=== PATIENT | male | born 1945 | race Caucasian/White ===

== ENCOUNTER 2017-02-01 11:12 | Inpatient (IN) | payer MEDICARE ==
[2017-02-01 12:40] LABS: Hematocrit 38 % (42-52); Hemoglobin 12.8 g/dl (14.0-18.0); Mean Corpuscular HGB Conc 34 g/dl (31-36); Mean Corpuscular Hemoglobin 30 pg (27-31); Mean Corpuscular Volume 90 fL (80-94); Mean Platelet Volume 8 um3 (7.4-10.4); Red Blood Count 4.23 10^6/ul (4.0-5.4); Red Cell Distribution Width 13 % (10.5-15); White Blood Count 13.8 10^3/ul (3.5-10.8)
[2017-02-01 12:44] LABS: Add Diff/Slide Review? Slide Review Added; Comments Flag Yes
[2017-02-01 12:59] LABS: Albumin 3.1 g/dL (3.2-5.2); BUN/Creatinine Ratio 20.3 (8-20); C Reactive Protein 203.75 mg/L (< 5.00); Calcium 9.1 mg/dL (8.6-10.3); EGFR Non-African American 45.1 (>60); Globulin 3.8 g/dL (2-4); Potassium 4.1 mmol/L (3.5-5.0); Total Bilirubin 0.6 mg/dL (0.2-1.0); Total Protein 6.9 g/dL (6.4-8.9)
[2017-02-01 13:04] LABS: Troponin I 0.04 ng/mL (<0.04)
[2017-02-01 13:05] LABS: Eosinophils % 1 % (0-6); Immature Granulocytes 1 % (0-9); Neutrophil % 84 % (38-83); RBC Morphology Normal (Normal); Reactive Lymph % 2 % (0-6)
--- NOTE | 2017-02-01 13:24 | RAD ---
INDICATION: Weakness. Shortness of breath on exertion. Recent flu treatment. History of cardiac disease. History of melanoma. COMPARISON: May 13, 2010 TECHNIQUE: Dual energy PA and routine lateral views of the chest were obtained. REPORT: Chronic 0.9 cm calcified granuloma at the periphery of the LEFT midlung zone. Probable small calcified RIGHT hilar lymph node without change. No suspicious focal pulmonary lesions, alveolar consolidation, pleural effusion, pneumothorax. The heart, pulmonary vasculature, and mediastinal contours are unremarkable. Polyarticular degenerative arthropathy. Negative for suspicious focal osseous lesions. IMPRESSION: No evidence for acute intrathoracic disease.
[2017-02-01 15:42] LABS: Urine Bilirubin Negative (Negative); Urine Glucose Negative (Negative); Urine Nitrite Negative (Negative)
[2017-02-01] MEDS ORDERED: Acetaminophen TAB* 325 MG PO PRN (16:01)
[2017-02-01] MEDS ORDERED: Ondansetron INJ* 2 MG/ML VIAL IV PRN (16:01)
[2017-02-01] MEDS ORDERED: NS 0.9% 1000 ML* 1,000 ML IV SCH ×2 (16:15→23:29)
[2017-02-01 17:18] LABS: Troponin I 0.04 ng/mL (<0.04)
--- NOTE | 2017-02-01 18:04 | ED ---
Lisa Esposito Claudia, scribed for Ovi Hernandez MD on 02/01/17 at 1231 . Complex/Multi-Sys Presentation - HPI Summary HPI Summary: 71 year old male presents to [facility] ED with chief complaints of flu-like Sx. Pt notes myalgia, arthalgia, fatigue, general weakness, SOB upon exertion, cough. Pt states that he had gradual onset of Sx about 1 weeks ago that have persisted but somewhat resolved. Pt notes that he is no longer having intermittent fevers but he is having some general weakness. He notes that OTC Rx have been somewhat alleviating his Sx. Pt denies any aggravating factors. - History Of Current Complaint Chief Complaint: EDFluSymptoms Time Seen by Provider: 02/01/17 12:11 Hx Obtained From: Patient Onset/Duration: Gradual Onset, Lasting Days, Still Present Associated Signs And Symptoms: Positive: Weakness, Cough, Fever. Negative: Chest Pain - Allergies/Home Medications Allergies/Adverse Reactions: Allergies Allergy/AdvReac Type Severity Reaction Status Date / Time No Known Allergies Allergy Verified 02/01/17 12:28 Home Medications: Home Medications Flunisolide NASAL (NF) [Nasalide NASAL (NF)] 2 spray BOTH NARES BEDTIME [History Confirmed 02/01/17] Metoprolol Succinate XL TAB* [Toprol XL TAB*] 50 mg PO DAILY 02/01/17 [History Confirmed 02/01/17] Omeprazole CAP* [Prilosec CAP* 20 MG] 20 mg PO BID 02/01/17 [History Confirmed 02/01/17] Sertraline* [Zoloft*] 50 mg PO DAILY 02/01/17 [History Confirmed 02/01/17] Simvastatin TAB(NF) [Zocor(NF)] 20 mg PO DAILY 02/01/17 [History Confirmed 02/01] amLODIPine TAB* [Norvasc 5 mg TAB*] 5 mg PO DAILY 02/01/17 [History Confirmed ] buPROPion SR TAB* [Wellbutrin SR TAB*] 200 mg PO BID 02/01/17 [History Confirmed 02/01/17] PMH/Surg Hx/FS Hx/Imm Hx Previously Healthy: Yes Endocrine/Hematology History: Denies: Hx Diabetes Cardiovascular History: Denies: Hx Myocardial Infarction Infectious Disease History: No Infectious Disease History: Denies: Traveled Outside the [place] in Last 30 Days - Social History Alcohol Use: Rare Substance Use Type: Reports: None Smoking Status (MU): Former Smoker Review of Systems Positive: Fever, Fatigue. Negative: Chills Eyes: Negative ENT: Negative Cardiovascular: Negative Negative: Chest Pain Positive: Shortness Of Breath - upon exertion , Cough Gastrointestinal: Negative Genitourinary: Negative Negative: burning, dysuria Positive: Arthralgia, Myalgia Skin: Negative Positive: Weakness - general Psychological: Normal All Other Systems Reviewed And Are Negative: Yes Physical Exam - Summary Physical Exam Summary: VITAL SIGNS: Reviewed. GENERAL: Patient is a well-developed and nourished female who is lying comfortable in the stretcher. Patient is not in any acute respiratory distress. HEAD AND FACE: No signs of trauma. No ecchymosis, hematomas or skull depressions. No sinus tenderness. EYES: PERRLA, EOMI x 2, No injected conjunctiva, no nystagmus. EARS: Hearing grossly intact. Ear canals and tympanic membranes are within normal limits. MOUTH: Oropharynx within normal limits. NECK: Supple, trachea is midline, no adenopathy, no JVD, no carotid bruit, no c- spine tenderness, neck with full ROM. CHEST: Symmetric, no tenderness at palpation LUNGS: Clear to auscultation bilaterally. No wheezing or crackles. CVS: Regular rate and rhythm, S1 and S2 present, no murmurs or gallops appreciated. ABDOMEN: Soft, non-tender. No signs of distention. No rebound no guarding, and no masses palpated. Bowel sounds are normal. EXTREMITIES: FROM in all major joints, no edema, no cyanosis or clubbing. NEURO: Alert and oriented x 3. No acute neurological deficits. Speech is normal and follows commands. SKIN: Dry and warm Triage Information Reviewed: Yes Vital Signs On Initial Exam: Initial Vitals Temp Pulse Resp BP Pulse Ox 98.0 F 96 20 118/66 97 02/01/17 11:16 02/01/17 11:16 02/01/17 11:16 02/01/17 11:16 02/01/17 11:16 Vital Signs Reviewed: Yes - [place] Coma Scale Coma Scale Total: 15 Diagnostics - Vital Signs Vital Signs Temp Pulse Resp BP Pulse Ox 07/12/17 12:27 94 02/01/17 12:00 79 119/75 95 02/01/17 11:31 73 96 02/01/17 11:30 143/77 02/01/17 11:16 98.0 F 96 20 118/66 97 - Laboratory Lab Results: Lab Results 02/01/17 02/01/17 02/01/17 Range/Units 12:20 12:20 12:20 WBC 13.8 H (3.5-10.8) 10^3/ul RBC 4.23 (4.0-5.4) 10^6/ul Hgb 12.8 L (14.0-18.0) g/dl Hct 38 L (42-52) % MCV 90 (80-94) fL MCH 30 (27-31) pg MCHC 34 (31-36) g/dl RDW 13 (10.5-15) % Plt Count 293 (150-450) 10^3/ul MPV 8 (7.4-10.4) um3 Immature Gran % (Auto) 1 (0-9) % Neut % (Auto) 86.7 H (38-83) % Lymph % (Auto) 7.8 L (25-47) % [place] % (Auto) 3.3 (1-9) % Eos % (Auto) 1.2 (0-6) % Baso % (Auto) 1.0 (0-2) % Absolute Neuts (auto) 12.0 H (1.5-7.7) 10^3/ul Absolute Lymphs (auto) 1.1 (1.0-4.8) 10^3/ul Absolute Monos (auto) 0.4 (0-0.8) 10^3/ul Absolute Eos (auto) 0.2 (0-0.6) 10^3/ul Absolute Basos (auto) 0.1 (0-0.2) 10^3/ul Absolute Nucleated RBC 0 10^3/ul Neutrophils % 84 H (38-83) % Band Neutrophils % 1 (0-8) % Lymphocytes % 7 L (25-47) % Reactive Lymphs % 2 (0-6) % Monocytes % 5 (0-13) % Eosinophils % 1 (0-6) % Nucleated RBC % 0 Normal RBC Morphology Normal (Normal) INR (Anticoag Therapy) 1.18 H (0.89-1.11) APTT 28.5 (26.0-36.3) seconds Sodium 130 L (133-145) mmol/L Potassium 4.1 (3.5-5.0) mmol/L Chloride 100 L (101-111) mmol/L Carbon Dioxide 20 L (22-32) mmol/L Anion Gap 10 (2-11) mmol/L BUN 31 H (6-24) mg/dL Creatinine 1.53 H (0.67-1.17) mg/dL Est GFR ( Amer) 58.0 (>60) Est GFR (Non-Af Amer) 45.1 (>60) BUN/Creatinine Ratio 20.3 H (8-20) Glucose 92 (70-100) mg/dL Lactic Acid (0.5-2.0) mmol/L Calcium 9.1 (8.6-10.3) mg/dL Total Bilirubin 0.60 (0.2-1.0) mg/dL AST 38 (13-39) U/L ALT 46 (7-52) U/L Alkaline Phosphatase 103 (34-104) U/L Total Creatine Kinase 35 (10-223) U/L Troponin I 0.04 H* (<0.04) ng/mL C-Reactive Protein 203.75 H (< 5.00) mg/L B-Natriuretic Peptide ( - 100) pg/mL Total Protein 6.9 (6.4-8.9) g/dL Albumin 3.1 L (3.2-5.2) g/dL Globulin 3.8 (2-4) g/dL Albumin/Globulin Ratio 0.8 L (1-3) Urine Color Urine Appearance Urine pH (5-9) Ur Specific [place] (1.010-1.030) Urine Protein (Negative) Urine Ketones (Negative) Urine Blood (Negative) Urine Nitrate (Negative) Urine Bilirubin (Negative) Urine Urobilinogen (Negative) Ur Leukocyte Esterase (Negative) U Random Total Protein mg/dL Urine Glucose (Negative) Urine Ascorbic Acid (Negative) Influenza A (Rapid) (Negative) Influenza B (Rapid) (Negative) 02/01/17 02/01/17 02/01/17 Range/Units 12:20 12:20 12:30 WBC (3.5-10.8) 10^3/ul RBC (4.0-5.4) 10^6/ul Hgb (14.0-18.0) g/dl Hct (42-52) % MCV (80-94) fL MCH (27-31) pg MCHC (31-36) g/dl RDW (10.5-15) % Plt Count (150-450) 10^3/ul MPV (7.4-10.4) um3 Immature Gran % (Auto) (0-9) % Neut % (Auto) (38-83) % Lymph % (Auto) (25-47) % [place] % (Auto) (1-9) % Eos % (Auto) (0-6) % Baso % (Auto) (0-2) % Absolute Neuts (auto) (1.5-7.7) 10^3/ul Absolute Lymphs (auto) (1.0-4.8) 10^3/ul Absolute Monos (auto) (0-0.8) 10^3/ul Absolute Eos (auto) (0-0.6) 10^3/ul Absolute Basos (auto) (0-0.2) 10^3/ul Absolute Nucleated RBC 10^3/ul Neutrophils % (38-83) % Band Neutrophils % (0-8) % Lymphocytes % (25-47) % Reactive Lymphs % (0-6) % Monocytes % (0-13) % Eosinophils % (0-6) % Nucleated RBC % Normal RBC Morphology (Normal) INR (Anticoag Therapy) (0.89-1.11) APTT (26.0-36.3) seconds Sodium (133-145) mmol/L Potassium (3.5-5.0) mmol/L Chloride (101-111) mmol/L Carbon Dioxide (22-32) mmol/L Anion Gap (2-11) mmol/L BUN (6-24) mg/dL Creatinine (0.67-1.17) mg/dL Est GFR ( Amer) (>60) Est GFR (Non-Af Amer) (>60) BUN/Creatinine Ratio (8-20) Glucose (70-100) mg/dL Lactic Acid 1.0 (0.5-2.0) mmol/L Calcium (8.6-10.3) mg/dL Total Bilirubin (0.2-1.0) mg/dL AST (13-39) U/L ALT (7-52) U/L Alkaline Phosphatase (34-104) U/L Total Creatine Kinase (10-223) U/L Troponin I (<0.04) ng/mL C-Reactive Protein (< 5.00) mg/L B-Natriuretic Peptide 129 H ( - 100) pg/mL Total Protein (6.4-8.9) g/dL Albumin (3.2-5.2) g/dL Globulin (2-4) g/dL Albumin/Globulin Ratio (1-3) Urine Color Urine Appearance Urine pH (5-9) Ur Specific [place] (1.010-1.030) Urine Protein (Negative) Urine Ketones (Negative) Urine Blood (Negative) Urine Nitrate (Negative) Urine Bilirubin (Negative) Urine Urobilinogen (Negative) Ur Leukocyte Esterase (Negative) U Random Total Protein mg/dL Urine Glucose (Negative) Urine Ascorbic Acid (Negative) Influenza A (Rapid) Negative (Negative) Influenza B (Rapid) Negative (Negative) 02/01/17 02/01/17 Range/Units 14:16 15:34 WBC (3.5-10.8) 10^3/ul RBC (4.0-5.4) 10^6/ul Hgb (14.0-18.0) g/dl Hct (42-52) % MCV (80-94) fL MCH (27-31) pg MCHC (31-36) g/dl RDW (10.5-15) % Plt Count (150-450) 10^3/ul MPV (7.4-10.4) um3 Immature Gran % (Auto) (0-9) % Neut % (Auto) (38-83) % Lymph % (Auto) (25-47) % [place] % (Auto) (1-9) % Eos % (Auto) (0-6) % Baso % (Auto) (0-2) % Absolute Neuts (auto) (1.5-7.7) 10^3/ul Absolute Lymphs (auto) (1.0-4.8) 10^3/ul Absolute Monos (auto) (0-0.8) 10^3/ul Absolute Eos (auto) (0-0.6) 10^3/ul Absolute Basos (auto) (0-0.2) 10^3/ul Absolute Nucleated RBC 10^3/ul Neutrophils % (38-83) % Band Neutrophils % (0-8) % Lymphocytes % (25-47) % Reactive Lymphs % (0-6) % Monocytes % (0-13) % Eosinophils % (0-6) % Nucleated RBC % Normal RBC Morphology (Normal) INR (Anticoag Therapy) (0.89-1.11) APTT (26.0-36.3) seconds Sodium (133-145) mmol/L Potassium (3.5-5.0) mmol/L Chloride (101-111) mmol/L Carbon Dioxide (22-32) mmol/L Anion Gap (2-11) mmol/L BUN (6-24) mg/dL Creatinine (0.67-1.17) mg/dL Est GFR ( Amer) (>60) Est GFR (Non-Af Amer) (>60) BUN/Creatinine Ratio (8-20) Glucose (70-100) mg/dL Lactic Acid (0.5-2.0) mmol/L Calcium (8.6-10.3) mg/dL Total Bilirubin (0.2-1.0) mg/dL AST (13-39) U/L ALT (7-52) U/L Alkaline Phosphatase (34-104) U/L Total Creatine Kinase (10-223) U/L Troponin I (<0.04) ng/mL C-Reactive Protein (< 5.00) mg/L B-Natriuretic Peptide ( - 100) pg/mL Total Protein (6.4-8.9) g/dL Albumin (3.2-5.2) g/dL Globulin (2-4) g/dL Albumin/Globulin Ratio (1-3) Urine Color Yellow Urine Appearance Clear Urine pH 5.0 (5-9) Ur Specific [place] 1.009 L (1.010-1.030) Urine Protein Negative (Negative) Urine Ketones Negative (Negative) Urine Blood Negative (Negative) Urine Nitrate Negative (Negative) Urine Bilirubin Negative (Negative) Urine Urobilinogen Negative (Negative) Ur Leukocyte Esterase Negative (Negative) U Random Total Protein 11 mg/dL Urine Glucose Negative (Negative) Urine Ascorbic Acid * H (Negative) Influenza A (Rapid) (Negative) Influenza B (Rapid) (Negative) Result Diagrams: 07/12/17 12:20 02/01/17 12:20 Lab Statement: Any lab studies that have been ordered have been reviewed, and results considered in the medical decision making process. - Radiology CXR Xray Interpretation: No Acute Changes - NO EVIDENCE FOR ACUTE INTRATHORACIC DISEASE Radiology Interpretation Completed By: Radiologist - EKG 12:39 Cardiac Rate: NL EKG Rhythm: Sinus Rhythm - 71 beats/min with PVC unchanged from previous Complex Multi-Symp Course/Dx Course Of Treatment: 71 year old male presents to [facility] ED with chief complaints of flu-like Sx. Pt notes myalgia, arthalgia, fatigue, general weakness, SOB upon exertion, cough. Pt states that he had gradual onset of Sx about 1 weeks ago that have persisted but somewhat resolved. Pt notes that he is no longer having intermittent fevers but he is having some general weakness. He notes that OTC Rx have been somewhat alleviating his Sx. Pt denies any aggravating factors. Assessment/Plan: The results show shows WBC of 12.8 slight anemia, sodium of 130 , BUN Creatinine slightly elevated. Troponin of 0.04, CRP is 203, urine analysis neg for UTI and influenza a and B negative. CXR shows neg for any acute pathology. Because of the increased troponin I discussed the case with Dr. Negrete who will admit the pt to rule out any cardiac pathology. The pt is hemodynamically stable, alert and oriented x3. - Diagnoses Differential Diagnoses/HQI/PQRI: Cardiac Ischemia Provider Diagnoses: Increased trponin r/o ACS, Dyspnea, Weakness - Physician Notifications Discussed Care Of Patient With: Consult with Dr. Negrete whom will admit the pt to [facility]. Time Discussed With Above Provider: 15:18 Instructed by Provider To: Admit As Observation Discharge - Discharge Plan Condition: Stable Disposition: ADMITTED TO [facility] The documentation as recorded by the Lisa miles Claudia accurately reflects the service I personally performed and the decisions made by , Ovi Hernandez MD.
[2017-02-01] MEDS ORDERED: Metoprolol Tartrate IV* 1 MG/ML 5 ML VIAL IV PRN (18:50)
[2017-02-01] MEDS ORDERED: Metoprolol Tartrate IV* 1 MG/ML 5 ML VIAL ONE (18:56)
[2017-02-01 19:22] LABS: TSH (Thyroid Stimulating Horm) 2.87 mcIU/mL (0.34-5.60)
[2017-02-01] MEDS ORDERED: Digoxin IV* 0.5 MG/2 ML AMP (0.25 MG/ML) IV SLOW PU ONE (19:46)
[2017-02-01] MEDS: Omeprazole CAP* 20 MG PO SCH (21:08)
[2017-02-01 21:19] LABS: Erythrocyte Sed Rate 99 mm/Hr (0-40)
[2017-02-01] MEDS ORDERED: cefTRIAXone VIAL(*) 1,000 MG in NS 0.9% 50 ML* 50 ML IVPB SCH (22:00)
[2017-02-01] MEDS ORDERED: Heparin VIAL(*) 5000 UNITS/ML VIAL (FIVE THOUSAND) SUBCUT SCH (22:00)
[2017-02-01] MEDS: Metoprolol Succinate XL TAB* 50 MG PO SCH (22:15)
[2017-02-01] MEDS: buPROPion SR TAB.SR* 200 MG PO SCH (22:16)
[2017-02-01] MEDS: Heparin VIAL(*) 5000 UNITS/ML VIAL (FIVE THOUSAND) IV SCH (22:35)
[2017-02-01] MEDS: Heparin DRIP 25,000 UNITS(*) 25,000 UNITS/500 ML BAG IVPB SCH (22:37)
--- NOTE | 2017-02-01 22:44 | HP ---
CC: Dr. Ly * HISTORY AND PHYSICAL: DATE OF ADMISSION: 02/01/17 PRIMARY CARE PROVIDER: Dr. Ly. ATTENDING PHYSICIAN WHILE IN THE HOSPITAL: Delano Negrtee MD * (report dictated by Wilder Reddy NP) CHIEF COMPLAINT: Weakness. HISTORY OF PRESENT ILLNESS: Mr. Workman is a 71-year-old male patient. He has a history of melanoma, CAD, hypertension, hyperlipidemia, depression, PE in the past and history of NM. He comes in today stating in the last 7 to 10 days he has been feeling ill and he states he has just been progressively getting more and more weak. In the last couple of days he has noticed he has had dyspnea on exertion. He says he took [id number] flu medications over the weekend and it actually made him feel better. He denied having any runny nose, sore throat, cough. No fever that he knows of, but he definitely says he thinks he has had chills. He states his appetite has been down. He states the beginning of the week he did have some left-sided neck pain and ear pain, but no symptoms now. He states he did not have any nausea, vomiting or diarrhea. No abdominal pain, no flank pain. He was concerned because he just generally felt run down, weak and fatigued. He does state that he is outside quite a bit. He works for the [employer] and he does take dogs for walk. In addition, he states he does garden quite a bit. He was concerned, though because he noticed that his activity level had decreased and he was feeling weak. He went to his primary today and they referred him to the ER for evaluation. He denied having any changes in his medications recently. He was evaluated here in the ED. It is noted that he had an elevated white count and CRP was 200. In addition to this, it was also noted that his troponin was mildly elevated. Because of these findings we were asked to evaluate for admission. PAST MEDICAL HISTORY: Significant for: 1. Melanoma. 2. CAD. 3. Hypertension. 4. Hyperlipidemia. 5. Depression. 6. PE. 7. NM. PAST SURGICAL HISTORY: He has had: 1. Multiple right foot surgeries from the melanoma. 2. Carpal tunnel. 3. Cardiac catheterization. HOME MEDICATIONS: According to the list that we were able to obtain include: 1. Wellbutrin 200 mg p.o. b.i.d. 2. Norvasc 5 mg daily. 3. Zocor 20 mg daily. 4. Zoloft 50 mg daily. 5. Omeprazole 20 mg p.o. b.i.d. 6. Metoprolol succinate 50 mg p.o. daily. 7. Nasalide 2 sprays both nares at bedtime. ALLERGIES TO MEDICATIONS: Include no known drug allergies. FAMILY HISTORY: His mother had heart disease, father had history of PE. SOCIAL HISTORY: The patient is a smoker. He smokes a lot of cigarettes a day. He does not drink alcohol. He states he does not have a surrogate decision maker at this point. REVIEW OF SYSTEMS: There is no documented fever, but he did admit to having chills. There is no significant weight change. Denied having any double vision. There was no ear discharge. He denies having any rhinorrhea. No sore throat. No thyroid enlargement. Denies having any chest pain. There was no orthopnea, no nocturnal dyspnea. There was no abdominal pain, no flank pain, no nausea, no vomiting. No dysuria, no frequency. There was no loss of consciousness. No pruritus and no skin ulcerations. Review of 14 systems completed, all others negative. PHYSICAL EXAMINATION GENERAL: At this time, Mr. Workman is a 71-year-old male patient. He is sitting in the ER stretcher. He does not appear to be in any acute distress. VITAL SIGNS: Blood pressure 140/69, pulse 82, respirations 18, O2 sat 95%, temperature 98.0. HEENT: Head is atraumatic. Eyes: EOMs are intact. Sclerae anicteric and not pale. Throat: Oral mucosa appears to be dry. No oropharyngeal erythema. NECK: Supple. LUNGS: Clear to auscultation bilaterally. No wheezes, rales, or rhonchi. HEART: Sounds S1 and S2. Regular rate and rhythm. No murmur, rubs, or gallops. ABDOMEN: Soft, flat, nontender. Bowel sounds are present. No CVA tenderness. EXTREMITIES: Pulses are 2+ throughout. He is moving all 4 extremities with 5/ 5 strength. NEUROLOGIC: The patient is awake. He is alert. He is oriented x3. His tongue is midline. Composite Layup Worker were equal. No gross focal deficits. SKIN: Grossly intact. No rashes were noted. No open areas. DIAGNOSTIC STUDIES/LAB DATA: Revealed WBC of 13.8, RBC of 4.23, hemoglobin of 12.8, hematocrit of 38, platelet count of 293,000. The INR was 1.18. PTT of 28.5. Sodium 130, potassium 4.1, chloride 100, bicarb 22, BUN 31, creatinine 1.53. His baseline creatinine appears to be about 1.4. His glucose was 92, lactate 1.01, calcium 9.1. Total bilirubin 0.6, AST 38, ALT 46, alk phos 103. Troponin 0.04. CRP was 203. Albumin was 3.1. Urine was obtained, it was negative. Serology was negative for flu. He had a chest x-ray which when I reviewed it, I did not appreciate any acute infiltrates or pleural effusion. Radiology read it as no evidence for acute intrathoracic disease. He did have an EKG obtained today, which does show sinus rhythm. He does have PAC's. No ST elevations or T-wave inversions were noted. Last EKG was 10 years ago in our system and with the exception of the PAC, it actually appears to be similar. Old medical records were reviewed. ASSESSMENT AND PLAN: Mr. Workman is a 71-year-old male patient coming into the ER today with complaints of generalized fatigue, weakness and not feeling well. On evaluation here today, it was noted he had an elevated white count. In addition to this, his CRP was 200 and a mildly elevated troponin. He will be admitted under observation status for: 1. Weakness, etiology is unclear. He may have an underlying infection. I think it is appropriate to check him for Lyme serology and if it is positive, then obviously I will put him on Rocephin. I am holding on antibiotics now, we are pizarro culturing him. I do not have an obvious source, although the CRP is concerning and the white count being up is concerning for possible infection, but it could still be viral. I would like to pizarro culture him. If he spikes any fevers, then I will probably put him on broad-spectrum antibiotics. We will monitor. We will get blood cultures and we will hydrate him and we will follow for the time being and it certainly contributing to his weakness. 2. Indeterminate troponins. Again, he is not having any chest pain. EKG is stable. My plan is to trend these and check an echo to see if there has been any focal changes on the echo. 3. Melanoma. He can follow with his primary. 4. Coronary artery disease. He is on a beta-ena. We will continue with this. He is also on Zocor. 5. Hypertension, continue his beta-ena. 6. Hyperlipidemia. Continue Zocor. 7. Depression. Continue supportive care. 8. History of pulmonary embolus. He will be placed on heparin subcu for his prophylaxis. 9. History of myocardial infarction. Again, continue his beta-ena and statin therapy. 10. Acute renal failure. Again, at this point, his renal function is mildly elevated from his baseline. It is probably dehydration. We will hydrate him. Repeat his labs tomorrow and I will check a FeNa. 11. Fluids, electrolytes, nutrition. He can have a heart-healthy diet. 12. DVT prophylaxis, on heparin subcu. TIME SPENT: On the admission was 60 minutes, greater than half the time was spent [id number] with the patient obtaining my history and physical, other half of the time was spent going over the plan of care with the patient and implementing the plan of care. I did discuss the plan of care with my attending , Dr. Negrete; he is in agreement. WILDER REDDY NP [id number]/[facility] #: [id number] WOLF
[2017-02-01] MEDS ORDERED: Digoxin IV* 0.5 MG/2 ML AMP (0.25 MG/ML) ONE (23:00)
[2017-02-01] MEDS: Hydrocortisone INJ* 100 MG VIAL IV SCH (23:55)
[2017-02-02 00:27] LABS: BUN/Creatinine Ratio 20.8 (8-20); Calcium 8.8 mg/dL (8.6-10.3); EGFR African American 59.8 (>60); EGFR Non-African American 46.5 (>60); Potassium 4.1 mmol/L (3.5-5.0)
[2017-02-02 00:36] LABS: Troponin I 0.05 ng/mL (<0.04)
[2017-02-02] MEDS: Amiodarone 360 MG IVPREMIX* 360 MG/200 ML BAG IV SCH ×7 (00:48→23:45)
--- NOTE | 2017-02-02 01:12 | HP ---
HISTORY AND PHYSICAL: ADDENDUM UPDATE: DATE OF ADMISSION: 02/01/17 Please note that since the patient's admission by Wilder Reddy today in the afternoon, patient developed atrial fibrillation with rapid ventricular response. He was treated with one dose of IV Lopressor at 5 mg. He also got his regular dose of Toprol XL at 2100 hours. Due to elevated CRP and ESR, Wilder Reddy NP ordered a dose of ceftriaxone to be administered. Also due to the continuation of atrial fibrillation, patient was started on heparin drip. Just about the time when his ceftriaxone dose was fully infused, then patient received a little bit over 5000 units of heparin drip bolus. He complained of having visual changes. I was called urgently to the patient's bedside with question by the registered nurse if the patient may be having a stroke. The patient was otherwise neurologically intact, but he was very diaphoretic, flushed and his blood pressures were in the 50s. His heart rate was in the 160s and EKG showed progression of his ST depressions in lateral leads. At this point, patient was treated with intravenous hydration. Patient received one dose of intravenous digoxin 0.25 mg 2 hours prior and he was administered 0.5 mg after he was seen right now. I spoke with Dr. Magallanes, who stated that this patient does in fact continue to be in unstable atrial fibrillation, and synchronized cardioversion will be indicated. At this point, the patient was just transferred to the intensive care unit. He is feeling better. After a bolus of intravenous hydration and a dose of digoxin, his pressure is in the low one-teens. His visual changes resolved. He also started complaining at some point of substernal pressure that is also now slowly resolving. PHYSICAL EXAMINATION GENERAL: The patient is a pleasant 71-year-old male who is mildly tachypneic and appears anxious, otherwise in no acute distress. The patient is alert and oriented x3. VITAL SIGNS: At this point shows heart rate of 120 and irregularly irregular, respiratory rate 20, oxygen saturation 99% on 5 L of oxygen nasal cannula and blood pressure of 114 systolically. HEENT: Head atraumatic, normocephalic. Eyes, pupils are equal, round, and reactive to light and accommodation. Oropharynx clear. Mucosa moist. NECK: Supple. No JVD. No bruits bilaterally. RESPIRATORY: Crackles at bilateral bases, otherwise clear. CARDIOVASCULAR: Irregularly irregular rhythm. No murmur. ABDOMEN: Soft and nontender. Bowel sounds are present in all 4 quadrants. EXTREMITIES: There is no edema, pulses are +2 bilaterally. No clubbing or cyanosis. SKIN: Diaphoretic and flushed. No lesions appreciated. NEUROLOGIC: Speech clear. Cranial nerves XII through XII grossly intact. Motor strength 5/5 bilaterally. LABORATORY DATA: The patient's EKG as mentioned above showed ST depressions of at least 2 mm in leads V3 to V6, which is progression from prior. Portable chest x-ray is pending at the time of dictation. ASSESSMENT AND PLAN: 1. Hypotension in the face of unstable atrial fibrillation. At this point, patient is at least temporarily stabilized after a dose of digoxin and intravenous fluids. His heart rate is lower to 120s and his pressures are over 100. At this point, the differential includes either simply just a cause of hypotension due to unstable atrial fibrillation versus an allergic reaction that could be either due to ceftriaxone or heparin. The patient also could have had an episode of pulmonary embolism. He did complain of some shortness of breath and he had history of pulmonary embolism and used to be on "warfarin for a very long time." He also has history of melanoma. At this point, weighing pros and cons of anticoagulation and possibility of the patient having an allergic reaction to heparin, I think it is pretty unlikely that the patient had hypotensive reaction as allergy to heparin. At this point, I will continue heparin drip for his atrial fibrillation as well as for possibility of pulmonary embolism. Unfortunately, at this point the patient cannot have a CT angiogram due to his chronic kidney insufficiency with creatinine of 1.5. Once again, he is empirically going to be continued to be treated with heparin drip. 2. In regards to possibility of infection, he received a dose of ceftriaxone. His blood cultures are pending. Apart from elevated inflammatory markers, there are no other signs of infection. At this point, the ceftriaxone is going to be held when possibility of allergic reaction is entertained. Also due to hypotension and question of allergic reaction, patient is going to be placed on stress dose steroids. 3. In regards to patient's ischemic changes on EKG, at least a progression and rate related ischemia in the lateral leads. At this point, patient is going to be heparinized. I cannot place him on nitroglycerin due to his low systolic pressures. I will monitor his troponins and he is in currently in the intensive care unit on continuing telemetry. 4. At this point, basic metabolic panel, lactic acid, portable chest x-ray are still pending. 5. Lastly, the patient's elevated ESR of 99 with history of generalized weakness places an autoimmune disease in the differential also. For that, the patient is going to be also continued on steroids for the time being. I will also order an YANIRA TIME SPENT: Overall, approximately 30 minutes of critical care time was spent in taking care of this patient. [id number]/[facility] #: [id number] WOLF
[2017-02-02 06:26] LABS: Add Diff/Slide Review? Slide Review Added; Comments Flag Yes; Hematocrit 33 % (42-52); Hemoglobin 10.9 g/dl (14.0-18.0); Mean Corpuscular HGB Conc 33 g/dl (31-36); Mean Corpuscular Hemoglobin 30 pg (27-31); Mean Corpuscular Volume 91 fL (80-94); Mean Platelet Volume 8 um3 (7.4-10.4); Red Blood Count 3.62 10^6/ul (4.0-5.4); Red Cell Distribution Width 13 % (10.5-15)
[2017-02-02 06:42] LABS: BUN/Creatinine Ratio 21.5 (8-20); Calcium 7.9 mg/dL (8.6-10.3); EGFR Non-African American 54.4 (>60); Potassium 4.3 mmol/L (3.5-5.0)
[2017-02-02 06:52] LABS: Troponin I 0.13 ng/mL (<0.04)
--- NOTE | 2017-02-02 07:59 | RAD ---
HISTORY: Shortness of breath COMPARISONS: February 01, 2017 at 1:07 PM VIEWS:1: Single frontal portable view of the chest at 11:40 PM FINDINGS: LINES AND TUBES: None. CARDIOMEDIASTINAL SILHOUETTE: The cardiomediastinal silhouette is normal for portable technique. PLEURA: The costophrenic angles are sharp. No pleural abnormalities are noted. LUNG PARENCHYMA: Again noted is a calcified granuloma of the left midlung ABDOMEN: The upper abdomen is clear. There is no subphrenic gas. BONES AND SOFT TISSUES: No bone or soft tissue abnormalities are noted. IMPRESSION: NO ACTIVE CARDIOPULMONARY DISEASE.
[2017-02-02] MEDS ORDERED: amLODIPine TAB* 5 MG PO SCH (09:00)
[2017-02-02] MEDS: buPROPion SR TAB.SR* 200 MG PO SCH ×2 (09:11→21:13)
[2017-02-02] MEDS: Omeprazole CAP* 20 MG PO SCH ×2 (09:11→21:13)
[2017-02-02] MEDS: Hydrocortisone INJ* 100 MG VIAL IV SCH ×2 (09:11→16:41)
[2017-02-02] MEDS: Atorvastatin* 10 MG TAB PO SCH (09:11)
[2017-02-02] MEDS: Sertraline* 50 MG TAB PO SCH (09:12)
--- NOTE | 2017-02-02 10:04 | ECHO ---
Patient: JANNET MIRANDA [facility] Rec#: [id number] : 1945 Date: 02/02/2017 Age: 71y Height: 175.3 cm / 69.0 in Weight: 65.8 kg / 145.0 lbs Sex: M BSA: 1.8 Room#: ICU 3 Admit Date#: 02/01/2017 Type: Inpatient Referring: Wilder Reddy NP Reading: Radha Raymond MD Banking Paralegal: Giuliana Prieto RN RDCS CC: Willy Ly MD Transthoracic Echocardiogram Indication: Elevated troponin, A. fib with hypotension BP: 100/46 HR: 70 Rhythm: NSR Findings History: CAD, MA, HTN, HLD, PE, melanoma, smoker, episode of A. fib and hypotension last evening Technical Comments: The study quality is fair. The study is technically limited due to the patient's smoking history. Completed at 0940. Left Ventricle: The left ventricular chamber size is normal. Mild concentric left ventricular hypertrophy is observed. There is a focal wall motion abnormality present.Inferior-posterior wall hypokinesis-mild Left ventricular systolic function is at the lower limits of normal. The estimated ejection fraction is 50-55%. There is no consistent Doppler evidence of clinically significant diastolic dysfunction. The patient was unable to perform a Valsalva maneuver. Left Atrium: The left atrium is mildly dilated. Right Ventricle: The right ventricular chamber size and systolic function are within normal limits. Right Atrium: The right atrium is mildly dilated. Aortic Valve: The aortic valve leaflets are moderately thickened. Systolic excursion of the aortic valve cusps is reduced. There is mild to moderate aortic regurgitation. There is mild to moderate aortic stenosis. The mean gradient of the aortic valve is 16 mmHg. The peak instantaneous gradient of the aortic valve is 27 mmHg. The aortic valve area, by peak velocities, is calculated at 1.4 cm2. The aortic valve area, by VTI's, is calculated at 1.6 cm2. The dimensionless index is 0.46-0.51. Mitral Valve: The mitral valve leaflets are mildly thickened. There is mild to moderate mitral regurgitation. There is no evidence of mitral stenosis. Tricuspid Valve: The tricuspid valve leaflets are normal. There is mild tricuspid regurgitation. There is evidence of mild pulmonary hypertension. There is no tricuspid stenosis. Pulmonic Valve: The pulmonic valve appears normal. There is mild pulmonic regurgitation. There is no pulmonic stenosis. Pericardium: There is no significant pericardial effusion. A pericardial fat pad is visualized. Aorta: There is no dilatation of the ascending aorta. The aortic arch is not well visualized. There is no dilation of the aortic root. Pulmonary Artery: The main pulmonary artery is not well visualized. Venous: The inferior vena cava is not visualized. Summary: There was not any prior study for comparison. Conclusions The left ventricular chamber size is normal. Mild concentric left ventricular hypertrophy is observed. There is a focal wall motion abnormality present.Inferior-posterior wall hypokinesis-mild The estimated ejection fraction is 50-55%. There is no consistent Doppler evidence of clinically significant diastolic dysfunction. The left atrium is mildly dilated. The right atrium is mildly dilated. There is mild to moderate aortic regurgitation. There is mild to moderate aortic stenosis. The aortic valve area, by peak velocities, is calculated at 1.4 cm2. There is mild to moderate mitral regurgitation. There is mild tricuspid regurgitation. There is evidence of mild pulmonary hypertension. There is mild pulmonic regurgitation. Measurements Name Value Normal Range RVDdMajor (2D) 3.2 cm (2.2 - 4.4) RAd ISD 4CH 5.4 cm (3.4 - 4.9) RA (A4C)W 4.2 cm (2.9 - 4.6) IVSd (2D) 1.2 cm (0.6 - 1) LVPWd (2D) 1.2 cm (0.6 - 1) LVIDd (2D) 4.7 cm (3.6 - 5.4) LVIDs (2D) 3.7 cm - LV FS (2D) 21 % (25 - 45) Aortic Annulus 2.1 cm (1.4 - 2.6) Ao root diameter (2D) 2.8 cm (2.1 - 3.5) Ascending Ao 3.1 cm (2.1 - 3.4) LAd ISD 4CH 5.1 cm (2.9 - 5.3) LA ISD 4CH W 4.8 cm (2.5 - 4.5) Name Value Normal Range LA ESV SP 4CH (A/L) 62 ml - LA ESV SP 2CH (A/L) 52 ml - LA ESV BP (A/L) 58 ml - LA ESV BP (A/L) index 32.3 ml/m2 - LA ESV SP 4CH (MOD) 59 ml - LA ESV SP 2CH (MOD) 50 ml - Name Value Normal Range MV E-wave Vmax 0.81 m/sec - MV deceleration time 168 msec - MV A-wave Vmax 0.5 m/sec - MV E:A ratio 1.6 ratio - LV septal e' Vmax 0.09 m/sec - LV lateral e' Vmax 0.08 m/sec - LV E:e' septal ratio 9 ratio - LV E:e' lateral ratio 10.1 ratio - Name Value Normal Range AV Vmax 2.6 m/sec - AV VTI 53.2 cm - AV peak gradient 27 mmHg - AV mean gradient 16 mmHg - LVOT diameter 2 cm - LVOT Vmax 1.2 m/sec - LVOT VTI 27.6 cm - LVOT peak gradient 5.7 mmHg - LVOT mean gradient 3.5 mmHg - DOI (VTI) 0.52 ratio - DOI (Vmax) 0.46 ratio - SV LVOT 86 ml - DEBBIE (continuity Vmax) 1.4 cm2 - DEBBIE (continuity VTI) 1.6 cm2 - Name Value Normal Range TR Vmax 2.7 m/sec - TR peak gradient 29 mmHg - RAP 8 mmHg - RVSP 37 mmHg - Name Value Normal Range PV Vmax 0.89 m/sec -
[2017-02-02] MEDS: NS 0.9% 1000 ML* 1,000 ML IV SCH ×2 (11:04→21:13)
[2017-02-02] MEDS ORDERED: DOXYcycline CAP(*) 100 MG PO SCH (12:00)
[2017-02-02] MEDS: DOXYcycline CAP(*) 100 MG PO SCH ×2 (13:26→21:13)
--- NOTE | 2017-02-02 14:57 | CONS ---
CC: Hospitalist Service; Dr. Raymond; Dr. Funes, Airline Hostess; Dr. Ly CARDIOLOGY CONSULT REPORT: DATE OF CONSULT: 02/02/17 HISTORY OF PRESENT ILLNESS: I was asked by the hospitalist service to see this 71- year-old male a[place]ia [place] who had 2 weeks' history of being fatigued, tired, lack of energy, myalgia and a week ago over breaking into fever, chills, and night sweats. The cardiology consult was further requested because last time the patient had an episode of rapid atrial fibrillation and low blood pressure, felt to b e dehydrated, responded to Digoxin treatment and amiodarone, he is in sinus rhythm today. During al l these 2 weeks' history of these symptoms, he never had symptoms of chest pain. He had no orthopnea , no PNDs, no syncope, no swelling of the lower extremities is appreciated. He does have history of coronary artery disease with a stent in the past, full detailed information is not immediately avai lable to me. He does have a history of hypertension, hyperlipidemia, depression, history of pulmona ry embolism, history of myocardial infarction, history of melanoma in the past and history of some r enal insufficiency, although responded yesterday to IV hydration. He was found to have significantl y elevated CRP at 200 and ESR at 100 of unclear immediate etiology at the present time. He is not q uite sure if he had any exposure to tick bite. He gives no history of autoimmune or rheumatologic d isease in the past. He is chest pain free. He gives no syncope, no swelling of the lower extremiti es, no tachycardia, no hematochezia, no vomiting is appreciated. His review of all other systems e ssentially is negative. He was evaluated by an echocardiogram today that showed him to have an over all left ventricular systolic function 50% to 55%. There is inferoposterior wall hypokinesis althou gh it is not severe. There is mild to moderate mitral insufficiency, mild to moderate aortic insuff iciency, and mild to moderate aortic stenosis. There is no significant pericardial effusion. PAST MEDICAL HISTORY: History of melanoma, coronary artery disease, hypertension, hyperlipidemia, d epression, myocardial infarction, and pulmonary embolism. PAST SURGICAL HISTORY: Includes cardiac catheterization in the past, carpal tunnel surgery, and mul tiple right foot surgeries secondary to his melanomas. MEDICATIONS: Other than inpatient include: 1. Tylenol 650 mg p.o. q. 4 hours p.r.n. 2. Lipitor 10 mg daily. 3. Wellbutrin 200 mg twice a day. 4. Heparin drip. 5. He is on Solu-Cortef 50 mg IV q. 8 hours. 6. Toprol-XL 50 mg daily. 7. Omeprazole 20 mg twice a day. 8. He is on amiodarone IV drip. 9. He is on Prilosec 20 mg twice a day. 10. Zoloft 50 mg daily. ALLERGIES: No known drug allergies. FAMILY HISTORY: No family history of premature coronary artery disease. SOCIAL HISTORY: He smoked 1 pack per day in the past. He has no history of drinking, no history of illicit drug use. REVIEW OF SYSTEMS: All other systems essentially is negative. PHYSICAL EXAM: He is awake, alert, and oriented. He feels fatigued, but no chest pain. Vitals: B lood pressure 120/70, pulse 55, sinus rhythm. Head and neck exam, normocephalic, atraumatic. Ear, nose, and throat essentially benign. Neck: Supple. JVP is not elevated. No carotid bruits. No ma sses in the neck is appreciated. Chest is clear to auscultation. No rales, no wheeze, and no added sounds appreciated. Heart: Normal, regular, S1 and S2. No added sounds, no gallops, no rubs. Ab domen: Benign, soft, positive bowel sounds. Extremities: No edema, no cyanosis, no clubbing. Ski n Exam: Normal. Psych: Normal affect and mood. SCHOOL ADMINISTRATOR: No focal deficit appreciated. DIAGNOSTIC STUDIES/LAB DATA: White blood cell 15, hemoglobin 10.9, hematocrit 33, platelets 294, hi s ESR is 99. Sodium 131, potassium 4.3, chloride 105, BUN 28, creatinine 1.30. His troponin initia lly 0.05 and then 0.13 at 6:15 this morning. His other labs, TSH 2.87, magnesium 2, his BNP is 129, CRP 203. His echo is as described. His EKG showed normal sinus rhythm, nonspecific ST-T changes. His chest x-ray showed no active cardiopulmonary disease. IMPRESSION: The patient is 71-year-old male with: 1. Presentation with an acute symptoms of 1 to 2 weeks of myalgia, fatigue, lack of energy, and flu -like symptoms and fever, chills, sweating with significantly elevated inflammatory markers of ESR a nd CRP to be further evaluated. 2. Transient episode of rapid atrial fibrillation; he is in sinus rhythm. 3. Elevated troponin, could be related to his episode of hypotension and rapid atrial fibrillation, dehydration, and inflammatory process, or could represent ischemic heart disease, although he is ch est pain free. 4. Known history of coronary artery disease with myocardial infarction in the past. 5. Systemic arterial hypertension. 6. Hyperlipidemia. 7. Depression. 8. History of pulmonary embolism. 9. Elevated significant CRP and ESR and white blood cell is elevated. 10. Mild renal insufficiency. 11. Mild to moderate aortic insufficiency. 12. Mild to moderate aortic stenosis. 13. Mild to moderate mitral insufficiency. PLAN: The patient is currently in the intensive care unit. It is not immediately clear definitely either an autoimmune disease inflammatory process, viral syndrome could be involved here. I discuss ed this at length with the patient. I discussed this at length with Dr. Rodríguez from the hospitalist service. I agree with hydration. I agree with continuing amiodarone IV for now to control his hea rt rate and to keep him in sinus rhythm. I agree with heparin. I recommend ID consultation and [facility] umatology consultation, which Dr. Rodríguez will follow on this. I offered the patient cardiac catheter ization, he declined. He wants to wait and see how things are going and we will follow him very anderson sely, clinically. TIME SPENT: More than half of the 60 to 65 plus minutes was in [id number] education, counseling, and discussing all of the above and making further recommendations. [id number]/[facility] #: [id number]
[2017-02-02] MEDS: Heparin VIAL(*) 5000 UNITS/ML VIAL (FIVE THOUSAND) IV SCH (16:37)
--- NOTE | 2017-02-02 17:14 | PN ---
Subjective Date of Service: 02/02/17 Interval History: Pt is still feeling lousy. HE denies any chest pain at this time. He has mild SOB. No significant cough or sputum production. He states he feels achy all over. He describes his thighs as being very painful. Objective Active Medications: Acetaminophen (Tylenol Tab*) 650 mg PO Q4H PRN PRN Reason: FEVER/PAIN Atorvastatin Calcium (Lipitor*) 10 mg PO DAILY [facility] Last Admin: 02/02/17 09:11 Dose: 10 mg Bupropion HCl (Wellbutrin Sr Tab*) 200 mg PO BID [facility] Last Admin: 02/02/17 09:11 Dose: 200 mg Doxycycline Hyclate (Vibramycin Cap(*)) 100 mg PO 00,2099 [facility] Last Admin: 02/02/17 13:26 Dose: 100 mg Heparin Sodium (Porcine) (Heparin Vial(*)) 0 units IV .PER PROTOCOL [facility] PRN Reason: Protocol Last Admin: 02/02/17 16:37 Dose: 2,950 units Hydrocortisone Sodium Succinate (Solu-Cortef*) 50 mg IV Q8H [facility] Last Admin: 02/02/17 16:41 Dose: 50 mg Heparin Sodium/Dextrose (Heparin Drip 25,000 Units(*)) 25,000 units in 500 mls @ 0 mls/hr IVPB .PER RATE [facility]; Per Protocol PRN Reason: Protocol Last Admin: 02/01/17 22:37 Dose: 21 mls/hr Amiodarone HCl (Nexterone 360 Mg/200 Ml Ivpremix*) 360 mg in 200 mls @ 33.333 mls/hr IV .Q24H [facility] PRN Reason: 1 MG/MIN Last Admin: 02/02/17 17:07 Dose: 33.333 mls/hr Sodium Chloride (Ns 0.9% 1000 Ml*) 1,000 mls @ 100 mls/hr IV PER RATE [facility] Last Admin: 02/02/17 11:04 Dose: 100 mls/hr Metoprolol Succinate (Toprol Xl Tab*) 50 mg PO 2099 [facility] Last Admin: 02/01/17 22:15 Dose: 50 mg Metoprolol Tartrate (Lopressor Iv*) 5 mg IV Q6H PRN PRN Reason: HEART RATE/PULSE GREATER THAN: Last Admin: 02/01/17 18:58 Dose: 5 mg Omeprazole (Prilosec Cap*) 20 mg PO BID [facility] Last Admin: 02/02/17 09:11 Dose: 20 mg Ondansetron HCl (Zofran Inj*) 4 mg IV Q6H PRN PRN Reason: NAUSEA Sertraline HCl (Zoloft*) 50 mg PO DAILY [facility] Last Admin: 02/02/17 09:12 Dose: 50 mg Vital Signs 02/01/17 02/02/17 02/02/17 23:45 00:00 00:08 Temperature 100.6 F Pulse Rate 112 140 Respiratory 22 27 Rate Blood Pressure 108/54 145/100 (mmHg) O2 Sat by Pulse 100 100 Oximetry 02/02/17 02/02/17 02/02/17 00:15 00:45 01:00 Temperature Pulse Rate 100 92 91 Respiratory 18 23 23 Rate Blood Pressure 134/83 112/54 112/53 (mmHg) O2 Sat by Pulse 100 98 98 Oximetry 02/02/17 02/02/17 02/02/17 01:15 01:30 02:00 Temperature Pulse Rate 90 Respiratory 28 25 25 Rate Blood Pressure 112/53 109/51 108/59 (mmHg) O2 Sat by Pulse 97 97 97 Oximetry 02/02/17 02/02/17 02/02/17 02:30 03:00 03:30 Temperature Pulse Rate Respiratory 26 30 25 Rate Blood Pressure 100/55 106/53 109/50 (mmHg) O2 Sat by Pulse 97 97 98 Oximetry 02/02/17 02/02/17 02/02/17 04:00 05:00 06:00 Temperature 99.1 F Pulse Rate 59 Respiratory 22 28 22 Rate Blood Pressure 109/56 108/51 100/46 (mmHg) O2 Sat by Pulse 97 98 96 Oximetry 02/02/17 02/02/17 02/02/17 06:59 07:00 07:44 Temperature 99.6 F Pulse Rate 60 Respiratory 19 24 Rate Blood Pressure 104/46 (mmHg) O2 Sat by Pulse 97 Oximetry 02/02/17 02/02/17 02/02/17 08:00 08:31 09:00 Temperature Pulse Rate 70 59 Respiratory 22 20 Rate Blood Pressure 110/56 97/47 (mmHg) O2 Sat by Pulse 97 97 98 Oximetry 02/02/17 02/02/17 02/02/17 10:00 10:01 11:00 Temperature Pulse Rate 66 67 58 Respiratory 20 25 17 Rate Blood Pressure 115/67 85/58 (mmHg) O2 Sat by Pulse 97 97 97 Oximetry 02/02/17 02/02/17 02/02/17 11:05 11:44 12:00 Temperature 97.2 F Pulse Rate 63 52 Respiratory 22 29 Rate Blood Pressure 110/61 102/38 (mmHg) O2 Sat by Pulse 97 96 Oximetry 02/02/17 02/02/17 02/02/17 13:00 13:03 14:00 Temperature Pulse Rate 54 Respiratory 14 20 26 Rate Blood Pressure 108/58 (mmHg) O2 Sat by Pulse 96 Oximetry 02/02/17 02/02/17 15:00 15:41 Temperature 98.4 F Pulse Rate 54 Respiratory 23 Rate Blood Pressure (mmHg) O2 Sat by Pulse 94 Oximetry Oxygen Devices in Use Now: Nasal Cannula Appearance: Elderly male lying in bed, NAD Eyes: No Scleral Icterus Ears/Nose/Mouth/Throat: Mucous Membranes Moist Respiratory: Symmetrical Chest Expansion and Respiratory Effort, Clear to Auscultation Cardiovascular: NL Sounds; No Murmurs; No JVD, RRR, No Edema Abdominal: NL Sounds; No Tenderness; No Distention Extremities: No Clubbing, Cyanosis Skin: No Rash or Ulcers, No Nodules or Sclerosis Neurological: Alert and Oriented x 3 Result Diagrams: 02/02/17 06:15 02/02/17 06:15 Additional Lab and Data: Lab Results 02/01/17 02/01/17 02/01/17 Range/Units 12:20 12:20 12:20 WBC 13.8 H (3.5-10.8) 10^3/ul RBC 4.23 (4.0-5.4) 10^6/ul Hgb 12.8 L (14.0-18.0) g/dl Hct 38 L (42-52) % MCV 90 (80-94) fL MCH 30 (27-31) pg MCHC 34 (31-36) g/dl RDW 13 (10.5-15) % Plt Count 293 (150-450) 10^3/ul MPV 8 (7.4-10.4) um3 Immature Gran % (Auto) 1 (0-9) % Neut % (Auto) 86.7 H (38-83) % Lymph % (Auto) 7.8 L (25-47) % [place] % (Auto) 3.3 (1-9) % Eos % (Auto) 1.2 (0-6) % Baso % (Auto) 1.0 (0-2) % Absolute Neuts (auto) 12.0 H (1.5-7.7) 10^3/ul Absolute Lymphs (auto) 1.1 (1.0-4.8) 10^3/ul Absolute Monos (auto) 0.4 (0-0.8) 10^3/ul Absolute Eos (auto) 0.2 (0-0.6) 10^3/ul Absolute Basos (auto) 0.1 (0-0.2) 10^3/ul Absolute Nucleated RBC 0 10^3/ul Neutrophils % 84 H (38-83) % Band Neutrophils % 1 (0-8) % Lymphocytes % 7 L (25-47) % Reactive Lymphs % 2 (0-6) % Monocytes % 5 (0-13) % Eosinophils % 1 (0-6) % Nucleated RBC % 0 Normal RBC Morphology Normal (Normal) INR (Anticoag Therapy) 1.18 H (0.89-1.11) APTT 28.5 (26.0-36.3) seconds Sodium 130 L (133-145) mmol/L Potassium 4.1 (3.5-5.0) mmol/L Chloride 100 L (101-111) mmol/L Carbon Dioxide 20 L (22-32) mmol/L Anion Gap 10 (2-11) mmol/L BUN 31 H (6-24) mg/dL Creatinine 1.53 H (0.67-1.17) mg/dL Est GFR ( Amer) 58.0 (>60) Est GFR (Non-Af Amer) 45.1 (>60) BUN/Creatinine Ratio 20.3 H (8-20) Glucose 92 (70-100) mg/dL Lactic Acid (0.5-2.0) mmol/L Calcium 9.1 (8.6-10.3) mg/dL Total Bilirubin 0.60 (0.2-1.0) mg/dL AST 38 (13-39) U/L ALT 46 (7-52) U/L Alkaline Phosphatase 103 (34-104) U/L Total Creatine Kinase 35 (10-223) U/L Troponin I 0.04 H* (<0.04) ng/mL C-Reactive Protein 203.75 H (< 5.00) mg/L B-Natriuretic Peptide ( - 100) pg/mL Total Protein 6.9 (6.4-8.9) g/dL Albumin 3.1 L (3.2-5.2) g/dL Globulin 3.8 (2-4) g/dL Albumin/Globulin Ratio 0.8 L (1-3) Urine Color Urine Appearance Urine pH (5-9) Ur Specific [place] (1.010-1.030) Urine Protein (Negative) Urine Ketones (Negative) Urine Blood (Negative) Urine Nitrate (Negative) Urine Bilirubin (Negative) Urine Urobilinogen (Negative) Ur Leukocyte Esterase (Negative) U Random Total Protein mg/dL Urine Glucose (Negative) Urine Ascorbic Acid (Negative) Influenza A (Rapid) (Negative) Influenza B (Rapid) (Negative) 02/01/17 02/01/17 02/01/17 Range/Units 12:20 12:20 12:30 WBC (3.5-10.8) 10^3/ul RBC (4.0-5.4) 10^6/ul Hgb (14.0-18.0) g/dl Hct (42-52) % MCV (80-94) fL MCH (27-31) pg MCHC (31-36) g/dl RDW (10.5-15) % Plt Count (150-450) 10^3/ul MPV (7.4-10.4) um3 Immature Gran % (Auto) (0-9) % Neut % (Auto) (38-83) % Lymph % (Auto) (25-47) % [place] % (Auto) (1-9) % Eos % (Auto) (0-6) % Baso % (Auto) (0-2) % Absolute Neuts (auto) (1.5-7.7) 10^3/ul Absolute Lymphs (auto) (1.0-4.8) 10^3/ul Absolute Monos (auto) (0-0.8) 10^3/ul Absolute Eos (auto) (0-0.6) 10^3/ul Absolute Basos (auto) (0-0.2) 10^3/ul Absolute Nucleated RBC 10^3/ul Neutrophils % (38-83) % Band Neutrophils % (0-8) % Lymphocytes % (25-47) % Reactive Lymphs % (0-6) % Monocytes % (0-13) % Eosinophils % (0-6) % Nucleated RBC % Normal RBC Morphology (Normal) INR (Anticoag Therapy) (0.89-1.11) APTT (26.0-36.3) seconds Sodium (133-145) mmol/L Potassium (3.5-5.0) mmol/L Chloride (101-111) mmol/L Carbon Dioxide (22-32) mmol/L Anion Gap (2-11) mmol/L BUN (6-24) mg/dL Creatinine (0.67-1.17) mg/dL Est GFR ( Amer) (>60) Est GFR (Non-Af Amer) (>60) BUN/Creatinine Ratio (8-20) Glucose (70-100) mg/dL Lactic Acid 1.0 (0.5-2.0) mmol/L Calcium (8.6-10.3) mg/dL Total Bilirubin (0.2-1.0) mg/dL AST (13-39) U/L ALT (7-52) U/L Alkaline Phosphatase (34-104) U/L Total Creatine Kinase (10-223) U/L Troponin I (<0.04) ng/mL C-Reactive Protein (< 5.00) mg/L B-Natriuretic Peptide 129 H ( - 100) pg/mL Total Protein (6.4-8.9) g/dL Albumin (3.2-5.2) g/dL Globulin (2-4) g/dL Albumin/Globulin Ratio (1-3) Urine Color Urine Appearance Urine pH (5-9) Ur Specific [place] (1.010-1.030) Urine Protein (Negative) Urine Ketones (Negative) Urine Blood (Negative) Urine Nitrate (Negative) Urine Bilirubin (Negative) Urine Urobilinogen (Negative) Ur Leukocyte Esterase (Negative) U Random Total Protein mg/dL Urine Glucose (Negative) Urine Ascorbic Acid (Negative) Influenza A (Rapid) Negative (Negative) Influenza B (Rapid) Negative (Negative) 02/01/17 02/01/17 Range/Units 14:16 15:34 WBC (3.5-10.8) 10^3/ul RBC (4.0-5.4) 10^6/ul Hgb (14.0-18.0) g/dl Hct (42-52) % MCV (80-94) fL MCH (27-31) pg MCHC (31-36) g/dl RDW (10.5-15) % Plt Count (150-450) 10^3/ul MPV (7.4-10.4) um3 Immature Gran % (Auto) (0-9) % Neut % (Auto) (38-83) % Lymph % (Auto) (25-47) % [place] % (Auto) (1-9) % Eos % (Auto) (0-6) % Baso % (Auto) (0-2) % Absolute Neuts (auto) (1.5-7.7) 10^3/ul Absolute Lymphs (auto) (1.0-4.8) 10^3/ul Absolute Monos (auto) (0-0.8) 10^3/ul Absolute Eos (auto) (0-0.6) 10^3/ul Absolute Basos (auto) (0-0.2) 10^3/ul Absolute Nucleated RBC 10^3/ul Neutrophils % (38-83) % Band Neutrophils % (0-8) % Lymphocytes % (25-47) % Reactive Lymphs % (0-6) % Monocytes % (0-13) % Eosinophils % (0-6) % Nucleated RBC % Normal RBC Morphology (Normal) INR (Anticoag Therapy) (0.89-1.11) APTT (26.0-36.3) seconds Sodium (133-145) mmol/L Potassium (3.5-5.0) mmol/L Chloride (101-111) mmol/L Carbon Dioxide (22-32) mmol/L Anion Gap (2-11) mmol/L BUN (6-24) mg/dL Creatinine (0.67-1.17) mg/dL Est GFR ( Amer) (>60) Est GFR (Non-Af Amer) (>60) BUN/Creatinine Ratio (8-20) Glucose (70-100) mg/dL Lactic Acid (0.5-2.0) mmol/L Calcium (8.6-10.3) mg/dL Total Bilirubin (0.2-1.0) mg/dL AST (13-39) U/L ALT (7-52) U/L Alkaline Phosphatase (34-104) U/L Total Creatine Kinase (10-223) U/L Troponin I (<0.04) ng/mL C-Reactive Protein (< 5.00) mg/L B-Natriuretic Peptide ( - 100) pg/mL Total Protein (6.4-8.9) g/dL Albumin (3.2-5.2) g/dL Globulin (2-4) g/dL Albumin/Globulin Ratio (1-3) Urine Color Yellow Urine Appearance Clear Urine pH 5.0 (5-9) Ur Specific [place] 1.009 L (1.010-1.030) Urine Protein Negative (Negative) Urine Ketones Negative (Negative) Urine Blood Negative (Negative) Urine Nitrate Negative (Negative) Urine Bilirubin Negative (Negative) Urine Urobilinogen Negative (Negative) Ur Leukocyte Esterase Negative (Negative) U Random Total Protein 11 mg/dL Urine Glucose Negative (Negative) Urine Ascorbic Acid * H (Negative) Influenza A (Rapid) (Negative) Influenza B (Rapid) (Negative) Assess/Plan/Problems-Billing Mr Ji Guidry is a 71 yo M who has a h/o HTN, CAD, h/o PE and depression who presented to the ER with c/o weakness and malaise. - Patient Problems (1) Atrial fibrillation with RVR Current Visit: Yes Status: Acute Code(s): I48.91 - UNSPECIFIED ATRIAL FIBRILLATION SNOMED Code(s): 639542552318683 Comment: Last evening the patient went into rapid afib. He converted after having his usual dose of metoprolol XL and a total of 0.75 mg of digoxin. He has been started on a heparin drip and amiodarone drip. Will continue both of these for now. Echo shows a low normal EF of 50-55% with a focal wall motion abnormality though it is possible the WMA is secondary to previous HI. (2) Weakness Current Visit: Yes Status: Acute Code(s): R53.1 - WEAKNESS SNOMED Code(s) : 54589517 Comment: The patient gives a history of feeling very poorly for 10 days prior to admission. He describes terrible aches and fatigue. My suspicion is that the patient may have Lyme. Will get Dr. Cash to see the patient in consultation. Lyme can cause the markedly elevated CRP/ESR. Will start doxy 100mg BID. If pt does not improve can consider rheumatology work up. (3) Elevated troponin Current Visit: Yes Status: Acute Code(s): R74.8 - ABNORMAL LEVELS OF OTHER SERUM ENZYMES SNOMED Code(s): 659726310 Comment: Likely secondary to rapid afib and hypotension that occurred last night. Dr. Raymond saw the patient and offered catheterization but at this time he wants to hold off which is acceptable. (4) DVT prophylaxis Current Visit: Yes Status: Acute Code(s): QLM6649 - SNOMED Code(s): 467954748 Comment: heparin drip (5) Full code status Current Visit: Yes Status: Acute Code(s): Z78.9 - OTHER SPECIFIED HEALTH STATUS SNOMED Code(s): 692894709
[2017-02-02] MEDS: Heparin DRIP 25,000 UNITS(*) 25,000 UNITS/500 ML BAG IVPB SCH (21:10)
[2017-02-02] MEDS: Metoprolol Succinate XL TAB* 50 MG PO SCH (21:14)
--- NOTE | 2017-02-02 22:54 | CONS ---
CONSULTATION REPORT: DATE OF CONSULTATION: 02/02/17 REQUESTING PHYSICIAN: Dr. Rodríguez. CONSULTING SERVICE: Infectious Disease. REASON FOR CONSULTATION: Fever, myalgia, elevated C-reactive protein. IMPRESSION: 1. A week of fever, myalgia, bilateral thigh pain, and now with multiple erythema migrans rashes on his back, all consistent with early disseminated Lyme. 2. Tachycardia due to atrial fibrillation likely due to underlying systemic infection in the setting of left atrial enlargement. 3. Coronary artery disease. 4. Metastatic melanoma. RECOMMENDATION: Doxycycline 100 by mouth twice daily for 14 days. HISTORY OF PRESENT ILLNESS: This is a 71-year-old man admitted with fever, myalgia. He was well until end of last week. He developed fevers, sweats, diffuse myalgia, and then more severe bilateral thigh pain worse with walking and standing. Tylenol did not help. He was seen by Dr. Ly who recommended admission. He came to the hospital on the , he was febrile. He developed atrial fibrillation with rapid ventricular response last night and he was transferred to the ICU. He has been loaded with amiodarone, his heart rate is down. He did have a dose of ceftriaxone yesterday. No rash or diarrhea or wheezing or chest pain after that. He is not aware of any rash. He spends a lot of time outdoors. Other workup here has included a chest x-ray that was negative on the . Transthoracic echocardiogram showed ejection fraction 50 % to 55%, left ventricular hypertrophy, mild inferior posterior wall motion abnormality, dilated left atrium, mild to moderate mitral regurgitation, mild to moderate aortic regurgitation, mild to moderate aortic stenosis. He has had no fever overnight, he is normotensive, heart rate is in the 50s. Has not had infection like this in the past. PAST MEDICAL HISTORY: 1. Coronary artery disease. 2. Metastatic melanoma, status post right foot surgeries and flap procedure. 3. Hypertension. 4. Hyperlipidemia. 5. Depression. 6. Pulmonary embolus. 7. Cardiac catheterization. ALLERGIES: No known drug allergies. MEDICATIONS: 1. Tylenol. 2. Lipitor. 3. Amiodarone. 4. Ceftriaxone. 5. Heparin infusion. 6. Hydrocortisone 50 mg every 8 hours. 7. Metoprolol. 8. Omeprazole. 9. Sertraline. 10. Bupropion. SOCIAL HISTORY: Lives in [place]. He has no travel or sick contacts, spends a lot time outdoors. FAMILY HISTORY: No recurrent infections. REVIEW OF SYSTEMS: All negative to full review of systems except as noted above. PHYSICAL EXAMINATION: Vital Signs: Temperature 37, heart rate 50, respiratory rate 20, blood pressure 108/58, O2 sat 94% on room air. General, he is awake, not in distress. Neurologic, he is oriented x3, follows all commands. HEENT: There is no conjunctival hemorrhage. Oropharynx without lesions. Neck is supple, without nuchal rigidity. Lymph Nodes: There is no cervical, supraclavicular, inguinal, axillary, or epitrochlear lymphadenopathy. Heart is regular rate and rhythm without murmurs, rubs, or gallops. Lungs are clear to auscultation bilaterally. Abdomen: Soft, nontender, and nondistended. There are bowel sounds present. Skin: On his back, there are multiple round and oval erythematous macules 2 to 3 cm, no other rashes or splinter hemorrhages. Musculoskeletal: There is no spine tenderness to palpation or joint synovitis with no muscle tenderness to palpation. DIAGNOSTIC STUDIES/LAB DATA: Creatinine 1.3, troponin 0.07, influenza PCR negative, urinalysis negative. White blood cell count 15, hemoglobin 10, platelets 294. Please see impressions and recommendations outlined above, which I have discussed with Dr. Rodríguez. Thank you for asking me to see Mr. Ji Guidry in consultation. [id number]/[facility] #: [id number] [facility]
[2017-02-02] MEDS ORDERED: Calcium Carbonate CHEW TAB* 500 MG (TUMS) PO PRN (23:27)
[2017-02-03] MEDS: Hydrocortisone INJ* 100 MG VIAL IV SCH (00:05)
[2017-02-03 06:21] LABS: Hematocrit 32 % (42-52); Hemoglobin 10.5 g/dl (14.0-18.0); Mean Corpuscular HGB Conc 33 g/dl (31-36); Mean Corpuscular Hemoglobin 30 pg (27-31); Mean Corpuscular Volume 91 fL (80-94); Mean Platelet Volume 8 um3 (7.4-10.4); Red Blood Count 3.47 10^6/ul (4.0-5.4); Red Cell Distribution Width 13 % (10.5-15); White Blood Count 11.5 10^3/ul (3.5-10.8)
[2017-02-03 06:22] LABS: Add Diff/Slide Review? Slide Review Added; Comments Flag Yes
[2017-02-03] MEDS ORDERED: Furosemide IV* 10 MG/ML 2 ML VIAL (20 MG) IV ONE (07:42)
--- NOTE | 2017-02-03 07:52 | PN ---
Subjective Date of Service: 02/03/17 Interval History: Pt is feeling poorly this AM. He states he did not sleep well overnight and yesterday was a very restless day. He describes still feeling achy especially because he can not change position easily in bed. He is also having SOB with minimal exertion and changes in position. He has noticed some red splotches showing up on his legs overnight. Objective Active Medications: Acetaminophen (Tylenol Tab*) 650 mg PO Q4H PRN PRN Reason: FEVER/PAIN Atorvastatin Calcium (Lipitor*) 10 mg PO DAILY [facility] Last Admin: 02/02/17 09:11 Dose: 10 mg Bupropion HCl (Wellbutrin Sr Tab*) 200 mg PO BID [facility] Last Admin: 02/02/17 21:13 Dose: 200 mg Calcium Carbonate (Tums*) 500 mg PO Q4H PRN PRN Reason: INDIGESTION Last Admin: 02/03/17 00:05 Dose: 500 mg Doxycycline Hyclate (Vibramycin Cap(*)) 100 mg PO 0900,2100 [facility] Last Admin: 02/02/17 21:13 Dose: 100 mg Furosemide (Lasix Iv*) 20 mg IV ONCE ONE Stop: 02/03/17 07:43 Heparin Sodium (Porcine) (Heparin Vial(*)) 0 units IV .PER PROTOCOL [facility] PRN Reason: Protocol Last Admin: 02/02/17 16:37 Dose: 2,950 units Hydrocortisone Sodium Succinate (Solu-Cortef*) 50 mg IV Q8H [facility] Last Admin: 02/03/17 00:05 Dose: 50 mg Heparin Sodium/Dextrose (Heparin Drip 25,000 Units(*)) 25,000 units in 500 mls @ 0 mls/hr IVPB .PER RATE [facility]ELIN; Per Protocol PRN Reason: Protocol Last Admin: 02/02/17 21:10 Dose: 24 mls/hr Metoprolol Succinate (Toprol Xl Tab*) 50 mg PO 2100 [facility] Last Admin: 02/02/17 21:14 Dose: 50 mg Metoprolol Tartrate (Lopressor Iv*) 5 mg IV Q6H PRN PRN Reason: HEART RATE/PULSE GREATER THAN: Last Admin: 02/01/17 18:58 Dose: 5 mg Omeprazole (Prilosec Cap*) 20 mg PO BID [facility] Last Admin: 02/02/17 21:13 Dose: 20 mg Ondansetron HCl (Zofran Inj*) 4 mg IV Q6H PRN PRN Reason: NAUSEA Sertraline HCl (Zoloft*) 50 mg PO DAILY [facility] Last Admin: 02/02/17 09:12 Dose: 50 mg Vital Signs 02/02/17 02/02/17 02/02/17 08:00 08:31 09:00 Temperature Pulse Rate 70 59 Respiratory 22 20 Rate Blood Pressure 110/56 97/47 (mmHg) O2 Sat by Pulse 97 97 98 Oximetry 02/02/17 02/02/17 02/02/17 10:00 10:01 11:00 Temperature Pulse Rate 66 67 58 Respiratory 20 25 17 Rate Blood Pressure 115/67 85/58 (mmHg) O2 Sat by Pulse 97 97 97 Oximetry 02/02/17 02/02/17 02/02/17 11:05 11:44 12:00 Temperature 97.2 F Pulse Rate 63 52 Respiratory 22 29 Rate Blood Pressure 110/61 102/38 (mmHg) O2 Sat by Pulse 97 96 Oximetry 02/02/17 02/02/17 02/02/17 13:00 13:03 14:00 Temperature Pulse Rate 54 Respiratory 14 20 26 Rate Blood Pressure 108/58 (mmHg) O2 Sat by Pulse 96 Oximetry 02/02/17 02/02/17 02/02/17 15:00 15:29 15:41 Temperature 98.4 F Pulse Rate 54 60 Respiratory 23 28 Rate Blood Pressure 115/53 (mmHg) O2 Sat by Pulse 94 96 Oximetry 02/02/17 02/02/17 02/02/17 16:00 17:00 18:00 Temperature Pulse Rate 53 54 56 Respiratory 21 23 22 Rate Blood Pressure 109/51 118/65 127/55 (mmHg) O2 Sat by Pulse 95 96 96 Oximetry 02/02/17 02/02/17 02/02/17 19:00 20:00 21:00 Temperature 98.2 F Pulse Rate 60 55 Respiratory 22 22 20 Rate Blood Pressure 122/54 117/50 (mmHg) O2 Sat by Pulse 97 96 Oximetry 02/02/17 02/02/17 02/02/17 21:09 22:00 23:00 Temperature Pulse Rate 56 53 Respiratory 21 22 21 Rate Blood Pressure 133/67 124/53 129/58 (mmHg) O2 Sat by Pulse 96 95 Oximetry 07/02/03/17 02/03/17 23:33 00:00 00:02 Temperature 97.9 F Pulse Rate 54 54 51 Respiratory 22 21 23 Rate Blood Pressure 119/58 (mmHg) O2 Sat by Pulse 96 95 94 Oximetry 02/03/17 02/03/17 02/03/17 01:00 02:00 03:00 Temperature Pulse Rate 59 50 49 Respiratory 21 19 20 Rate Blood Pressure 112/57 117/55 117/53 (mmHg) O2 Sat by Pulse 93 93 92 Oximetry 02/03/17 02/03/17 02/03/17 04:00 05:00 06:00 Temperature 98 F Pulse Rate 50 51 65 Respiratory 19 19 21 Rate Blood Pressure 119/70 121/62 153/74 (mmHg) O2 Sat by Pulse 95 92 95 Oximetry 02/03/17 02/03/17 07:00 07:34 Temperature 98.4 F Pulse Rate 68 Respiratory 23 Rate Blood Pressure 147/115 (mmHg) O2 Sat by Pulse 93 Oximetry Oxygen Devices in Use Now: None Appearance: Elderly male sitting up in bed, NAD Eyes: No Scleral Icterus Ears/Nose/Mouth/Throat: Mucous Membranes Moist Respiratory: Symmetrical Chest Expansion and Respiratory Effort, Clear to Auscultation, - - tachypnic with talking Cardiovascular: NL Sounds; No Murmurs; No JVD, RRR, No Edema Abdominal: NL Sounds; No Tenderness; No Distention Extremities: No Clubbing, Cyanosis Skin: No Nodules or Sclerosis, - - + erythematous patches on back, stomach, extremities Neurological: Alert and Oriented x 3 Result Diagrams: 02/03/17 05:50 02/02/17 06:15 Additional Lab and Data: Lab Results 02/01/17 02/01/17 02/01/17 Range/Units 12:20 12:20 12:20 WBC 13.8 H (3.5-10.8) 10^3/ul RBC 4.23 (4.0-5.4) 10^6/ul Hgb 12.8 L (14.0-18.0) g/dl Hct 38 L (42-52) % MCV 90 (80-94) fL MCH 30 (27-31) pg MCHC 34 (31-36) g/dl RDW 13 (10.5-15) % Plt Count 293 (150-450) 10^3/ul MPV 8 (7.4-10.4) um3 Immature Gran % (Auto) 1 (0-9) % Neut % (Auto) 86.7 H (38-83) % Lymph % (Auto) 7.8 L (25-47) % [place] % (Auto) 3.3 (1-9) % Eos % (Auto) 1.2 (0-6) % Baso % (Auto) 1.0 (0-2) % Absolute Neuts (auto) 12.0 H (1.5-7.7) 10^3/ul Absolute Lymphs (auto) 1.1 (1.0-4.8) 10^3/ul Absolute Monos (auto) 0.4 (0-0.8) 10^3/ul Absolute Eos (auto) 0.2 (0-0.6) 10^3/ul Absolute Basos (auto) 0.1 (0-0.2) 10^3/ul Absolute Nucleated RBC 0 10^3/ul Neutrophils % 84 H (38-83) % Band Neutrophils % 1 (0-8) % Lymphocytes % 7 L (25-47) % Reactive Lymphs % 2 (0-6) % Monocytes % 5 (0-13) % Eosinophils % 1 (0-6) % Nucleated RBC % 0 Normal RBC Morphology Normal (Normal) INR (Anticoag Therapy) 1.18 H (0.89-1.11) APTT 28.5 (26.0-36.3) seconds Sodium 130 L (133-145) mmol/L Potassium 4.1 (3.5-5.0) mmol/L Chloride 100 L (101-111) mmol/L Carbon Dioxide 20 L (22-32) mmol/L Anion Gap 10 (2-11) mmol/L BUN 31 H (6-24) mg/dL Creatinine 1.53 H (0.67-1.17) mg/dL Est GFR ( Amer) 58.0 (>60) Est GFR (Non-Af Amer) 45.1 (>60) BUN/Creatinine Ratio 20.3 H (8-20) Glucose 92 (70-100) mg/dL Lactic Acid (0.5-2.0) mmol/L Calcium 9.1 (8.6-10.3) mg/dL Total Bilirubin 0.60 (0.2-1.0) mg/dL AST 38 (13-39) U/L ALT 46 (7-52) U/L Alkaline Phosphatase 103 (34-104) U/L Total Creatine Kinase 35 (10-223) U/L Troponin I 0.04 H* (<0.04) ng/mL C-Reactive Protein 203.75 H (< 5.00) mg/L B-Natriuretic Peptide ( - 100) pg/mL Total Protein 6.9 (6.4-8.9) g/dL Albumin 3.1 L (3.2-5.2) g/dL Globulin 3.8 (2-4) g/dL Albumin/Globulin Ratio 0.8 L (1-3) Urine Color Urine Appearance Urine pH (5-9) Ur Specific [place] (1.010-1.030) Urine Protein (Negative) Urine Ketones (Negative) Urine Blood (Negative) Urine Nitrate (Negative) Urine Bilirubin (Negative) Urine Urobilinogen (Negative) Ur Leukocyte Esterase (Negative) U Random Total Protein mg/dL Urine Glucose (Negative) Urine Ascorbic Acid (Negative) Influenza A (Rapid) (Negative) Influenza B (Rapid) (Negative) 02/01/17 02/01/17 02/01/17 Range/Units 12:20 12:20 12:30 WBC (3.5-10.8) 10^3/ul RBC (4.0-5.4) 10^6/ul Hgb (14.0-18.0) g/dl Hct (42-52) % MCV (80-94) fL MCH (27-31) pg MCHC (31-36) g/dl RDW (10.5-15) % Plt Count (150-450) 10^3/ul MPV (7.4-10.4) um3 Immature Gran % (Auto) (0-9) % Neut % (Auto) (38-83) % Lymph % (Auto) (25-47) % [place] % (Auto) (1-9) % Eos % (Auto) (0-6) % Baso % (Auto) (0-2) % Absolute Neuts (auto) (1.5-7.7) 10^3/ul Absolute Lymphs (auto) (1.0-4.8) 10^3/ul Absolute Monos (auto) (0-0.8) 10^3/ul Absolute Eos (auto) (0-0.6) 10^3/ul Absolute Basos (auto) (0-0.2) 10^3/ul Absolute Nucleated RBC 10^3/ul Neutrophils % (38-83) % Band Neutrophils % (0-8) % Lymphocytes % (25-47) % Reactive Lymphs % (0-6) % Monocytes % (0-13) % Eosinophils % (0-6) % Nucleated RBC % Normal RBC Morphology (Normal) INR (Anticoag Therapy) (0.89-1.11) APTT (26.0-36.3) seconds Sodium (133-145) mmol/L Potassium (3.5-5.0) mmol/L Chloride (101-111) mmol/L Carbon Dioxide (22-32) mmol/L Anion Gap (2-11) mmol/L BUN (6-24) mg/dL Creatinine (0.67-1.17) mg/dL Est GFR ( Amer) (>60) Est GFR (Non-Af Amer) (>60) BUN/Creatinine Ratio (8-20) Glucose (70-100) mg/dL Lactic Acid 1.0 (0.5-2.0) mmol/L Calcium (8.6-10.3) mg/dL Total Bilirubin (0.2-1.0) mg/dL AST (13-39) U/L ALT (7-52) U/L Alkaline Phosphatase (34-104) U/L Total Creatine Kinase (10-223) U/L Troponin I (<0.04) ng/mL C-Reactive Protein (< 5.00) mg/L B-Natriuretic Peptide 129 H ( - 100) pg/mL Total Protein (6.4-8.9) g/dL Albumin (3.2-5.2) g/dL Globulin (2-4) g/dL Albumin/Globulin Ratio (1-3) Urine Color Urine Appearance Urine pH (5-9) Ur Specific [place] (1.010-1.030) Urine Protein (Negative) Urine Ketones (Negative) Urine Blood (Negative) Urine Nitrate (Negative) Urine Bilirubin (Negative) Urine Urobilinogen (Negative) Ur Leukocyte Esterase (Negative) U Random Total Protein mg/dL Urine Glucose (Negative) Urine Ascorbic Acid (Negative) Influenza A (Rapid) Negative (Negative) Influenza B (Rapid) Negative (Negative) 02/01/17 02/01/17 Range/Units 14:16 15:34 WBC (3.5-10.8) 10^3/ul RBC (4.0-5.4) 10^6/ul Hgb (14.0-18.0) g/dl Hct (42-52) % MCV (80-94) fL MCH (27-31) pg MCHC (31-36) g/dl RDW (10.5-15) % Plt Count (150-450) 10^3/ul MPV (7.4-10.4) um3 Immature Gran % (Auto) (0-9) % Neut % (Auto) (38-83) % Lymph % (Auto) (25-47) % [place] % (Auto) (1-9) % Eos % (Auto) (0-6) % Baso % (Auto) (0-2) % Absolute Neuts (auto) (1.5-7.7) 10^3/ul Absolute Lymphs (auto) (1.0-4.8) 10^3/ul Absolute Monos (auto) (0-0.8) 10^3/ul Absolute Eos (auto) (0-0.6) 10^3/ul Absolute Basos (auto) (0-0.2) 10^3/ul Absolute Nucleated RBC 10^3/ul Neutrophils % (38-83) % Band Neutrophils % (0-8) % Lymphocytes % (25-47) % Reactive Lymphs % (0-6) % Monocytes % (0-13) % Eosinophils % (0-6) % Nucleated RBC % Normal RBC Morphology (Normal) INR (Anticoag Therapy) (0.89-1.11) APTT (26.0-36.3) seconds Sodium (133-145) mmol/L Potassium (3.5-5.0) mmol/L Chloride (101-111) mmol/L Carbon Dioxide (22-32) mmol/L Anion Gap (2-11) mmol/L BUN (6-24) mg/dL Creatinine (0.67-1.17) mg/dL Est GFR ( Amer) (>60) Est GFR (Non-Af Amer) (>60) BUN/Creatinine Ratio (8-20) Glucose (70-100) mg/dL Lactic Acid (0.5-2.0) mmol/L Calcium (8.6-10.3) mg/dL Total Bilirubin (0.2-1.0) mg/dL AST (13-39) U/L ALT (7-52) U/L Alkaline Phosphatase (34-104) U/L Total Creatine Kinase (10-223) U/L Troponin I (<0.04) ng/mL C-Reactive Protein (< 5.00) mg/L B-Natriuretic Peptide ( - 100) pg/mL Total Protein (6.4-8.9) g/dL Albumin (3.2-5.2) g/dL Globulin (2-4) g/dL Albumin/Globulin Ratio (1-3) Urine Color Yellow Urine Appearance Clear Urine pH 5.0 (5-9) Ur Specific [place] 1.009 L (1.010-1.030) Urine Protein Negative (Negative) Urine Ketones Negative (Negative) Urine Blood Negative (Negative) Urine Nitrate Negative (Negative) Urine Bilirubin Negative (Negative) Urine Urobilinogen Negative (Negative) Ur Leukocyte Esterase Negative (Negative) U Random Total Protein 11 mg/dL Urine Glucose Negative (Negative) Urine Ascorbic Acid * H (Negative) Influenza A (Rapid) (Negative) Influenza B (Rapid) (Negative) Assess/Plan/Problems-Billing Mr Ji Guidry is a 71 yo M who has a h/o HTN, CAD, h/o PE and depression who presented to the ER with c/o weakness and malaise. - Patient Problems (1) Atrial fibrillation with RVR Current Visit: Yes Status: Acute Code(s): I48.91 - UNSPECIFIED ATRIAL FIBRILLATION SNOMED Code(s): 214512271381493 Comment: Pt remains in NSR. Amiodarone drip has been discontinued. Will continue metoprolol XL. Because of the patient's tachypnea, I wonder if he became slightly fluid overloaded. His +5L in terms of his I/Os. Will give lasix 20mg IV x1. He agrees to anticoagulation as his CHADS2-Vasc score is 2. Will change from heparin drip to eliquis this evening. Will check with his pharmacy to see if this is covered by his insurance. 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 Continue doxycycline 100mg po BID x14 days. (3) Elevated troponin Current Visit: Yes Status: Acute Code(s): R74.8 - ABNORMAL LEVELS OF OTHER SERUM ENZYMES SNOMED Code(s): 758138259 Comment: Likely secondary to rapid afib and hypotension. He will need to follow up with cardiology as an outpatient to determine if catheterization should be pursued. (4) DVT prophylaxis Current Visit: Yes Status: Acute Code(s): VQC6466 - SNOMED Code(s): 437100632 Comment: heparin drip to niraj. (5) Full code status Current Visit: Yes Status: Acute Code(s): Z78.9 - OTHER SPECIFIED HEALTH STATUS SNOMED Code(s): 132997880
[2017-02-03] MEDS: Omeprazole CAP* 20 MG PO SCH ×2 (08:38→21:42)
[2017-02-03] MEDS: DOXYcycline CAP(*) 100 MG PO SCH ×2 (08:38→21:42)
[2017-02-03] MEDS: buPROPion SR TAB.SR* 200 MG PO SCH ×2 (08:38→21:42)
[2017-02-03] MEDS: Sertraline* 50 MG TAB PO SCH (08:38)
[2017-02-03] MEDS: Atorvastatin* 10 MG TAB PO SCH (08:39)
--- NOTE | 2017-02-03 14:43 | PN ---
Progress Note - Progress Note Date of Service: 02/03/17 SOAP: Subjective: DOS: 02/03/17 CC: 71 yo man with 1 week flu like symptoms and BL thigh pain, Afib with RVR. HR controlled. Fever, chills, aches improved. Rash on back, resolving. No dairrhea. Objective: [] Vital Signs Temp 36.2 C 02/03/17 10:31 Pulse 53 02/03/17 10:31 Resp 16 02/03/17 10:31 BP 131/91 02/03/17 10:31 Pulse Ox 98 02/03/17 10:31 Intake & Output 02/02/17 02/03/17 02/03/17 18:59 06:59 18:59 Intake Total 2500 2583 547 Output Total 750 1300 400 Balance 1750 1283 147 Weight 171 lb 11.841 oz Intake: IV Fluids 912 1623 NS (0.9%) 912 1623 Medicated IV 215 435 CC - Amiodarone 215 435 Heparin 333 335 107 Oral 1040 190 440 Output: Urine 750 1300 400 Other: Date of Last Bowel 02/02/17 Movement # Bowel Movements 2 Estimated Stool Amount Medium # Voids 1 Gen:Awake, no distress HEENT:PERRL, MMM Neck:SUpple Heart:RRR no murmur Lungs:CTA BL Abd:+BS NTND soft Skin: fading erythematous round patches MSK: no spine tenderness Laboratory Results - last 24 hr 02/02/17 02/03/17 02/03/17 14:23 00:30 05:50 WBC 11.5 H RBC 3.47 L Hgb 10.5 L Hct 32 L MCV 91 MCH 30 MCHC 33 RDW 13 Plt Count 267 MPV 8 Neut % (Auto) 89.5 H Lymph % (Auto) 6.9 L [place] % (Auto) 3.4 Eos % (Auto) 0 Baso % (Auto) 0.2 Absolute Neuts (auto) 10.3 H Absolute Lymphs (auto) 0.8 L Absolute Monos (auto) 0.4 Absolute Eos (auto) 0 Absolute Basos (auto) 0 Absolute Nucleated RBC 0 Nucleated RBC % 0 APTT 48.5 H 59.8 H 02/03/17 08:42 WBC RBC Hgb Hct MCV MCH MCHC RDW Plt Count MPV Neut % (Auto) Lymph % (Auto) [place] % (Auto) Eos % (Auto) Baso % (Auto) Absolute Neuts (auto) Absolute Lymphs (auto) Absolute Monos (auto) Absolute Eos (auto) Absolute Basos (auto) Absolute Nucleated RBC Nucleated RBC % APTT 56.2 H Assessment: 1. Early disseminated Lyme 2. Afib with RVR 2 Plan: 1. doxycycline 100 mg po bid x14 days 2. HIV Ab 35 minutes floor time >50% counseling regarding Lyme symptoms and treatment. All questions answered.
[2017-02-03 19:54] LABS: Cyclic Citrullinated Pept IgG <15.6 U
[2017-02-03] MEDS: Apixaban* 5 MG TAB PO SCH (21:42)
[2017-02-03] MEDS: Metoprolol Succinate XL TAB* 50 MG PO SCH (21:51)
[2017-02-04 05:36] LABS: Hematocrit 36 % (42-52); Hemoglobin 12.1 g/dl (14.0-18.0); Mean Corpuscular HGB Conc 33 g/dl (31-36); Mean Corpuscular Hemoglobin 30 pg (27-31); Mean Corpuscular Volume 91 fL (80-94); Mean Platelet Volume 8 um3 (7.4-10.4); Red Cell Distribution Width 13 % (10.5-15); White Blood Count 11.3 10^3/ul (3.5-10.8)
[2017-02-04 05:44] LABS: BUN/Creatinine Ratio 25.2 (8-20); EGFR African American 71.9 (>60); EGFR Non-African American 55.9 (>60)
[2017-02-04] MEDS: Hydrocortisone INJ* 100 MG VIAL IV SCH (07:20)
[2017-02-04] MEDS: Omeprazole CAP* 20 MG PO SCH ×2 (08:58→20:46)
[2017-02-04] MEDS: buPROPion SR TAB.SR* 200 MG PO SCH ×2 (08:58→20:45)
[2017-02-04] MEDS: Atorvastatin* 10 MG TAB PO SCH (08:58)
[2017-02-04] MEDS: Sertraline* 50 MG TAB PO SCH (09:00)
[2017-02-04] MEDS: Apixaban* 5 MG TAB PO SCH ×2 (09:00→20:46)
[2017-02-04] MEDS: DOXYcycline CAP(*) 100 MG PO SCH (10:03)
--- NOTE | 2017-02-04 11:58 | PN ---
Subjective Date of Service: 02/04/17 Interval History: Pt is feeling ok today but is having profuse diarrhea. He thinks he has gone about 20 times since about 0300 this AM. He denies any abdominal pain. He feels less fatigued. No significant SOB today. Objective Active Medications: Acetaminophen (Tylenol Tab*) 650 mg PO Q4H PRN PRN Reason: FEVER/PAIN Amoxicillin (Amoxicillin Po (*)) 500 mg PO TID [facility] Apixaban (Eliquis*) 5 mg PO BID [facility] Last Admin: 02/04/17 09:00 Dose: 5 mg Atorvastatin Calcium (Lipitor*) 10 mg PO DAILY [facility] Last Admin: 02/04/17 08:58 Dose: 10 mg Bupropion HCl (Wellbutrin Sr Tab*) 200 mg PO BID [facility] Last Admin: 02/04/17 08:58 Dose: 200 mg Calcium Carbonate (Tums*) 500 mg PO Q4H PRN PRN Reason: INDIGESTION Last Admin: 02/03/17 00:05 Dose: 500 mg Metoprolol Succinate (Toprol Xl Tab*) 50 mg PO 2100 [facility] Last Admin: 02/03/17 21:51 Dose: 50 mg Omeprazole (Prilosec Cap*) 20 mg PO BID [facility] Last Admin: 02/04/17 08:58 Dose: 20 mg Ondansetron HCl (Zofran Inj*) 4 mg IV Q6H PRN PRN Reason: NAUSEA Sertraline HCl (Zoloft*) 50 mg PO DAILY [facility] Last Admin: 02/04/17 09:00 Dose: 50 mg Vital Signs 02/03/17 02/03/17 02/03/17 12:37 16:35 19:40 Temperature 97.2 F 97.8 F 97.6 F Pulse Rate 50 55 75 Respiratory 16 24 20 Rate Blood Pressure 139/62 150/62 132/56 (mmHg) O2 Sat by Pulse 98 90 94 Oximetry 02/03/17 02/03/17 02/03/17 20:00 20:16 21:49 Temperature Pulse Rate 56 Respiratory 16 Rate Blood Pressure 162/64 (mmHg) O2 Sat by Pulse 95 95 94 Oximetry 02/04/17 02/04/17 02/04/17 00:47 04:53 08:00 Temperature 98.4 F 98.3 F Pulse Rate 66 72 Respiratory 16 22 20 Rate Blood Pressure 122/57 151/71 (mmHg) O2 Sat by Pulse 95 95 94 Oximetry 02/04/17 02/04/17 08:05 09:21 Temperature 98.7 F Pulse Rate 64 Respiratory 16 Rate Blood Pressure 151/67 (mmHg) O2 Sat by Pulse 94 96 Oximetry Oxygen Devices in Use Now: None Appearance: Elderly male sitting on the edge of the bed, NAD Eyes: No Scleral Icterus Ears/Nose/Mouth/Throat: Mucous Membranes Moist Respiratory: Symmetrical Chest Expansion and Respiratory Effort, Clear to Auscultation Cardiovascular: NL Sounds; No Murmurs; No JVD, RRR, No Edema Abdominal: NL Sounds; No Tenderness; No Distention Extremities: No Clubbing, Cyanosis Skin: No Nodules or Sclerosis, - - fading rash on back Neurological: Alert and Oriented x 3 Result Diagrams: 02/04/17 05:19 02/04/17 05:19 Additional Lab and Data: Lab Results 02/01/17 02/01/17 02/01/17 Range/Units 12:20 12:20 12:20 WBC 13.8 H (3.5-10.8) 10^3/ul RBC 4.23 (4.0-5.4) 10^6/ul Hgb 12.8 L (14.0-18.0) g/dl Hct 38 L (42-52) % MCV 90 (80-94) fL MCH 30 (27-31) pg MCHC 34 (31-36) g/dl RDW 13 (10.5-15) % Plt Count 293 (150-450) 10^3/ul MPV 8 (7.4-10.4) um3 Immature Gran % (Auto) 1 (0-9) % Neut % (Auto) 86.7 H (38-83) % Lymph % (Auto) 7.8 L (25-47) % [place] % (Auto) 3.3 (1-9) % Eos % (Auto) 1.2 (0-6) % Baso % (Auto) 1.0 (0-2) % Absolute Neuts (auto) 12.0 H (1.5-7.7) 10^3/ul Absolute Lymphs (auto) 1.1 (1.0-4.8) 10^3/ul Absolute Monos (auto) 0.4 (0-0.8) 10^3/ul Absolute Eos (auto) 0.2 (0-0.6) 10^3/ul Absolute Basos (auto) 0.1 (0-0.2) 10^3/ul Absolute Nucleated RBC 0 10^3/ul Neutrophils % 84 H (38-83) % Band Neutrophils % 1 (0-8) % Lymphocytes % 7 L (25-47) % Reactive Lymphs % 2 (0-6) % Monocytes % 5 (0-13) % Eosinophils % 1 (0-6) % Nucleated RBC % 0 Normal RBC Morphology Normal (Normal) INR (Anticoag Therapy) 1.18 H (0.89-1.11) APTT 28.5 (26.0-36.3) seconds Sodium 130 L (133-145) mmol/L Potassium 4.1 (3.5-5.0) mmol/L Chloride 100 L (101-111) mmol/L Carbon Dioxide 20 L (22-32) mmol/L Anion Gap 10 (2-11) mmol/L BUN 31 H (6-24) mg/dL Creatinine 1.53 H (0.67-1.17) mg/dL Est GFR ( Amer) 58.0 (>60) Est GFR (Non-Af Amer) 45.1 (>60) BUN/Creatinine Ratio 20.3 H (8-20) Glucose 92 (70-100) mg/dL Lactic Acid (0.5-2.0) mmol/L Calcium 9.1 (8.6-10.3) mg/dL Total Bilirubin 0.60 (0.2-1.0) mg/dL AST 38 (13-39) U/L ALT 46 (7-52) U/L Alkaline Phosphatase 103 (34-104) U/L Total Creatine Kinase 35 (10-223) U/L Troponin I 0.04 H* (<0.04) ng/mL C-Reactive Protein 203.75 H (< 5.00) mg/L B-Natriuretic Peptide ( - 100) pg/mL Total Protein 6.9 (6.4-8.9) g/dL Albumin 3.1 L (3.2-5.2) g/dL Globulin 3.8 (2-4) g/dL Albumin/Globulin Ratio 0.8 L (1-3) Urine Color Urine Appearance Urine pH (5-9) Ur Specific [place] (1.010-1.030) Urine Protein (Negative) Urine Ketones (Negative) Urine Blood (Negative) Urine Nitrate (Negative) Urine Bilirubin (Negative) Urine Urobilinogen (Negative) Ur Leukocyte Esterase (Negative) U Random Total Protein mg/dL Urine Glucose (Negative) Urine Ascorbic Acid (Negative) Influenza A (Rapid) (Negative) Influenza B (Rapid) (Negative) 02/01/17 02/01/17 02/01/17 Range/Units 12:20 12:20 12:30 WBC (3.5-10.8) 10^3/ul RBC (4.0-5.4) 10^6/ul Hgb (14.0-18.0) g/dl Hct (42-52) % MCV (80-94) fL MCH (27-31) pg MCHC (31-36) g/dl RDW (10.5-15) % Plt Count (150-450) 10^3/ul MPV (7.4-10.4) um3 Immature Gran % (Auto) (0-9) % Neut % (Auto) (38-83) % Lymph % (Auto) (25-47) % [place] % (Auto) (1-9) % Eos % (Auto) (0-6) % Baso % (Auto) (0-2) % Absolute Neuts (auto) (1.5-7.7) 10^3/ul Absolute Lymphs (auto) (1.0-4.8) 10^3/ul Absolute Monos (auto) (0-0.8) 10^3/ul Absolute Eos (auto) (0-0.6) 10^3/ul Absolute Basos (auto) (0-0.2) 10^3/ul Absolute Nucleated RBC 10^3/ul Neutrophils % (38-83) % Band Neutrophils % (0-8) % Lymphocytes % (25-47) % Reactive Lymphs % (0-6) % Monocytes % (0-13) % Eosinophils % (0-6) % Nucleated RBC % Normal RBC Morphology (Normal) INR (Anticoag Therapy) (0.89-1.11) APTT (26.0-36.3) seconds Sodium (133-145) mmol/L Potassium (3.5-5.0) mmol/L Chloride (101-111) mmol/L Carbon Dioxide (22-32) mmol/L Anion Gap (2-11) mmol/L BUN (6-24) mg/dL Creatinine (0.67-1.17) mg/dL Est GFR ( Amer) (>60) Est GFR (Non-Af Amer) (>60) BUN/Creatinine Ratio (8-20) Glucose (70-100) mg/dL Lactic Acid 1.0 (0.5-2.0) mmol/L Calcium (8.6-10.3) mg/dL Total Bilirubin (0.2-1.0) mg/dL AST (13-39) U/L ALT (7-52) U/L Alkaline Phosphatase (34-104) U/L Total Creatine Kinase (10-223) U/L Troponin I (<0.04) ng/mL C-Reactive Protein (< 5.00) mg/L B-Natriuretic Peptide 129 H ( - 100) pg/mL Total Protein (6.4-8.9) g/dL Albumin (3.2-5.2) g/dL Globulin (2-4) g/dL Albumin/Globulin Ratio (1-3) Urine Color Urine Appearance Urine pH (5-9) Ur Specific [place] (1.010-1.030) Urine Protein (Negative) Urine Ketones (Negative) Urine Blood (Negative) Urine Nitrate (Negative) Urine Bilirubin (Negative) Urine Urobilinogen (Negative) Ur Leukocyte Esterase (Negative) U Random Total Protein mg/dL Urine Glucose (Negative) Urine Ascorbic Acid (Negative) Influenza A (Rapid) Negative (Negative) Influenza B (Rapid) Negative (Negative) 02/01/17 02/01/17 Range/Units 14:16 15:34 WBC (3.5-10.8) 10^3/ul RBC (4.0-5.4) 10^6/ul Hgb (14.0-18.0) g/dl Hct (42-52) % MCV (80-94) fL MCH (27-31) pg MCHC (31-36) g/dl RDW (10.5-15) % Plt Count (150-450) 10^3/ul MPV (7.4-10.4) um3 Immature Gran % (Auto) (0-9) % Neut % (Auto) (38-83) % Lymph % (Auto) (25-47) % [place] % (Auto) (1-9) % Eos % (Auto) (0-6) % Baso % (Auto) (0-2) % Absolute Neuts (auto) (1.5-7.7) 10^3/ul Absolute Lymphs (auto) (1.0-4.8) 10^3/ul Absolute Monos (auto) (0-0.8) 10^3/ul Absolute Eos (auto) (0-0.6) 10^3/ul Absolute Basos (auto) (0-0.2) 10^3/ul Absolute Nucleated RBC 10^3/ul Neutrophils % (38-83) % Band Neutrophils % (0-8) % Lymphocytes % (25-47) % Reactive Lymphs % (0-6) % Monocytes % (0-13) % Eosinophils % (0-6) % Nucleated RBC % Normal RBC Morphology (Normal) INR (Anticoag Therapy) (0.89-1.11) APTT (26.0-36.3) seconds Sodium (133-145) mmol/L Potassium (3.5-5.0) mmol/L Chloride (101-111) mmol/L Carbon Dioxide (22-32) mmol/L Anion Gap (2-11) mmol/L BUN (6-24) mg/dL Creatinine (0.67-1.17) mg/dL Est GFR ( Amer) (>60) Est GFR (Non-Af Amer) (>60) BUN/Creatinine Ratio (8-20) Glucose (70-100) mg/dL Lactic Acid (0.5-2.0) mmol/L Calcium (8.6-10.3) mg/dL Total Bilirubin (0.2-1.0) mg/dL AST (13-39) U/L ALT (7-52) U/L Alkaline Phosphatase (34-104) U/L Total Creatine Kinase (10-223) U/L Troponin I (<0.04) ng/mL C-Reactive Protein (< 5.00) mg/L B-Natriuretic Peptide ( - 100) pg/mL Total Protein (6.4-8.9) g/dL Albumin (3.2-5.2) g/dL Globulin (2-4) g/dL Albumin/Globulin Ratio (1-3) Urine Color Yellow Urine Appearance Clear Urine pH 5.0 (5-9) Ur Specific [place] 1.009 L (1.010-1.030) Urine Protein Negative (Negative) Urine Ketones Negative (Negative) Urine Blood Negative (Negative) Urine Nitrate Negative (Negative) Urine Bilirubin Negative (Negative) Urine Urobilinogen Negative (Negative) Ur Leukocyte Esterase Negative (Negative) U Random Total Protein 11 mg/dL Urine Glucose Negative (Negative) Urine Ascorbic Acid * H (Negative) Influenza A (Rapid) (Negative) Influenza B (Rapid) (Negative) Assess/Plan/Problems-Billing Mr Ji Guidry is a 71 yo M who has a h/o HTN, CAD, h/o PE and depression who presented to the ER with c/o weakness and malaise. - Patient Problems (1) Diarrhea Current Visit: Yes Status: Acute Code(s): R19.7 - DIARRHEA, UNSPECIFIED SNOMED Code(s): 65524777 Comment: Check c.diff given how profuse his diarrhea is. Change from doxy to amoxicillin. If c.diff negative will start imodium. (2) Atrial fibrillation with RVR Current Visit: Yes Status: Acute Code(s): I48.91 - UNSPECIFIED ATRIAL FIBRILLATION SNOMED Code(s): 025152262682041 Comment: Pt remains in NSR. Continue metoprolol XL 50mg daily and eliquis 5mg BID. He will need to follow up with cardiology as an outpatient. (3) Weakness Current Visit: Yes Status: Acute Code(s): R53.1 - WEAKNESS SNOMED Code(s) : 45132410 Comment: Change to amoxicillin 500mg TID given new severe diarrhea. Will need to be treated for 14 days total. (4) Elevated troponin Current Visit: Yes Status: Acute Code(s): R74.8 - ABNORMAL LEVELS OF OTHER SERUM ENZYMES SNOMED Code(s): 188761929 Comment: Likely secondary to rapid afib and hypotension. He will need to follow up with cardiology as an outpatient to determine if catheterization should be pursued. (5) DVT prophylaxis Current Visit: Yes Status: Acute Code(s): WXR5087 - SNOMED Code(s): 286096216 Comment: eliquis (6) Full code status Current Visit: Yes Status: Acute Code(s): Z78.9 - OTHER SPECIFIED HEALTH STATUS SNOMED Code(s): 590536054
[2017-02-04] MEDS: Amoxicillin PO (*) 500 MG CAP PO SCH ×2 (14:49→20:45)
[2017-02-04] MEDS ORDERED: Loperamide CAP* 2 MG PO PRN (15:21)
[2017-02-04] MEDS ORDERED: Digoxin IV* 0.5 MG/2 ML AMP (0.25 MG/ML) IV SLOW PU ONE (17:14)
[2017-02-04] MEDS ORDERED: Diltiazem TAB* 30 MG PO PRN ×2 (19:05→22:34)
[2017-02-04] MEDS: Metoprolol Succinate XL TAB* 50 MG PO SCH (20:45)
[2017-02-05 06:37] LABS: Hematocrit 36 % (42-52); Hemoglobin 12.1 g/dl (14.0-18.0); Mean Corpuscular HGB Conc 34 g/dl (31-36); Mean Corpuscular Hemoglobin 31 pg (27-31); Mean Corpuscular Volume 91 fL (80-94); Mean Platelet Volume 8 um3 (7.4-10.4); Red Blood Count 3.95 10^6/ul (4.0-5.4); Red Cell Distribution Width 13 % (10.5-15); White Blood Count 8.4 10^3/ul (3.5-10.8)
[2017-02-05 06:44] LABS: Add Diff/Slide Review? Slide Review Added; Comments Flag Yes
[2017-02-05] MEDS: Amoxicillin PO (*) 500 MG CAP PO SCH ×2 (08:58→13:07)
[2017-02-05] MEDS: Atorvastatin* 10 MG TAB PO SCH (08:58)
[2017-02-05] MEDS: Omeprazole CAP* 20 MG PO SCH (08:58)
[2017-02-05] MEDS: Sertraline* 50 MG TAB PO SCH (08:58)
[2017-02-05] MEDS: Apixaban* 5 MG TAB PO SCH (08:59)
[2017-02-05] MEDS: buPROPion SR TAB.SR* 200 MG PO SCH (08:59)
--- NOTE | 2017-02-05 11:39 | PN ---
Subjective Date of Service: 02/05/17 Interval History: Pt is feeling well. No further diarrhea. He states he slept well last night but still feels tired. He thinks he felt mild palpitations last evening when he went back into afib. Objective Active Medications: Acetaminophen (Tylenol Tab*) 650 mg PO Q4H PRN PRN Reason: FEVER/PAIN Amoxicillin (Amoxicillin Po (*)) 500 mg PO TID [facility] Last Admin: 02/05/17 08:58 Dose: 500 mg Apixaban (Eliquis*) 5 mg PO BID [facility] Last Admin: 02/05/17 08:59 Dose: 5 mg Atorvastatin Calcium (Lipitor*) 10 mg PO DAILY [facility] Last Admin: 02/05/17 08:58 Dose: 10 mg Bupropion HCl (Wellbutrin Sr Tab*) 200 mg PO BID [facility] Last Admin: 02/05/17 08:59 Dose: 200 mg Calcium Carbonate (Tums*) 500 mg PO Q4H PRN PRN Reason: INDIGESTION Last Admin: 02/03/17 00:05 Dose: 500 mg Diltiazem HCl (Cardizem Tab*) 30 mg PO Q6H PRN PRN Reason: HEART RATE/PULSE GREATER THAN: Loperamide HCl (Imodium Cap*) 2 mg PO .SEE DIRECTIONS PRN PRN Reason: DIARRHEA Metoprolol Succinate (Toprol Xl Tab*) 50 mg PO 2100 [facility] Last Admin: 02/04/17 20:45 Dose: 50 mg Omeprazole (Prilosec Cap*) 20 mg PO BID [facility] Last Admin: 02/05/17 08:58 Dose: 20 mg Ondansetron HCl (Zofran Inj*) 4 mg IV Q6H PRN PRN Reason: NAUSEA Sertraline HCl (Zoloft*) 50 mg PO DAILY [facility] Last Admin: 02/05/17 08:58 Dose: 50 mg Vital Signs 02/04/17 02/04/17 02/04/17 14:56 15:58 18:12 Temperature 97.5 F 97.7 F Pulse Rate 49 49 109 Respiratory 18 20 Rate Blood Pressure 157/63 157/65 (mmHg) O2 Sat by Pulse 97 95 Oximetry 02/04/17 02/04/17 02/04/17 19:20 19:37 20:00 Temperature 98.0 F Pulse Rate 127 Respiratory 20 20 Rate Blood Pressure 137/78 (mmHg) O2 Sat by Pulse 96 95 Oximetry 02/04/17 02/04/17 02/05/17 20:03 22:25 00:54 Temperature 97.6 F 97.6 F 98.2 F Pulse Rate 125 68 130 Respiratory 22 16 Rate Blood Pressure 149/78 136/62 133/56 (mmHg) O2 Sat by Pulse 95 95 93 Oximetry 02/05/17 02/05/17 02/05/17 04:46 07:11 07:48 Temperature 98.0 F 97.4 F Pulse Rate 80 45 Respiratory 16 16 16 Rate Blood Pressure 144/70 143/57 (mmHg) O2 Sat by Pulse 94 94 96 Oximetry Oxygen Devices in Use Now: None Appearance: Elderly male sitting in a chair, NAD Eyes: No Scleral Icterus Ears/Nose/Mouth/Throat: Mucous Membranes Moist Respiratory: Symmetrical Chest Expansion and Respiratory Effort, Clear to Auscultation Cardiovascular: NL Sounds; No Murmurs; No JVD, No Edema, - - bradycardic but regular Abdominal: NL Sounds; No Tenderness; No Distention Extremities: No Clubbing, Cyanosis Skin: No Nodules or Sclerosis, - - fading EM rash Neurological: Alert and Oriented x 3 Result Diagrams: 02/05/17 06:23 02/04/17 05:19 Additional Lab and Data: Lab Results 02/01/17 02/01/17 02/01/17 Range/Units 12:20 12:20 12:20 WBC 13.8 H (3.5-10.8) 10^3/ul RBC 4.23 (4.0-5.4) 10^6/ul Hgb 12.8 L (14.0-18.0) g/dl Hct 38 L (42-52) % MCV 90 (80-94) fL MCH 30 (27-31) pg MCHC 34 (31-36) g/dl RDW 13 (10.5-15) % Plt Count 293 (150-450) 10^3/ul MPV 8 (7.4-10.4) um3 Immature Gran % (Auto) 1 (0-9) % Neut % (Auto) 86.7 H (38-83) % Lymph % (Auto) 7.8 L (25-47) % [place] % (Auto) 3.3 (1-9) % Eos % (Auto) 1.2 (0-6) % Baso % (Auto) 1.0 (0-2) % Absolute Neuts (auto) 12.0 H (1.5-7.7) 10^3/ul Absolute Lymphs (auto) 1.1 (1.0-4.8) 10^3/ul Absolute Monos (auto) 0.4 (0-0.8) 10^3/ul Absolute Eos (auto) 0.2 (0-0.6) 10^3/ul Absolute Basos (auto) 0.1 (0-0.2) 10^3/ul Absolute Nucleated RBC 0 10^3/ul Neutrophils % 84 H (38-83) % Band Neutrophils % 1 (0-8) % Lymphocytes % 7 L (25-47) % Reactive Lymphs % 2 (0-6) % Monocytes % 5 (0-13) % Eosinophils % 1 (0-6) % Nucleated RBC % 0 Normal RBC Morphology Normal (Normal) INR (Anticoag Therapy) 1.18 H (0.89-1.11) APTT 28.5 (26.0-36.3) seconds Sodium 130 L (133-145) mmol/L Potassium 4.1 (3.5-5.0) mmol/L Chloride 100 L (101-111) mmol/L Carbon Dioxide 20 L (22-32) mmol/L Anion Gap 10 (2-11) mmol/L BUN 31 H (6-24) mg/dL Creatinine 1.53 H (0.67-1.17) mg/dL Est GFR ( Amer) 58.0 (>60) Est GFR (Non-Af Amer) 45.1 (>60) BUN/Creatinine Ratio 20.3 H (8-20) Glucose 92 (70-100) mg/dL Lactic Acid (0.5-2.0) mmol/L Calcium 9.1 (8.6-10.3) mg/dL Total Bilirubin 0.60 (0.2-1.0) mg/dL AST 38 (13-39) U/L ALT 46 (7-52) U/L Alkaline Phosphatase 103 (34-104) U/L Total Creatine Kinase 35 (10-223) U/L Troponin I 0.04 H* (<0.04) ng/mL C-Reactive Protein 203.75 H (< 5.00) mg/L B-Natriuretic Peptide ( - 100) pg/mL Total Protein 6.9 (6.4-8.9) g/dL Albumin 3.1 L (3.2-5.2) g/dL Globulin 3.8 (2-4) g/dL Albumin/Globulin Ratio 0.8 L (1-3) Urine Color Urine Appearance Urine pH (5-9) Ur Specific [place] (1.010-1.030) Urine Protein (Negative) Urine Ketones (Negative) Urine Blood (Negative) Urine Nitrate (Negative) Urine Bilirubin (Negative) Urine Urobilinogen (Negative) Ur Leukocyte Esterase (Negative) U Random Total Protein mg/dL Urine Glucose (Negative) Urine Ascorbic Acid (Negative) Influenza A (Rapid) (Negative) Influenza B (Rapid) (Negative) 02/01/17 02/01/17 02/01/17 Range/Units 12:20 12:20 12:30 WBC (3.5-10.8) 10^3/ul RBC (4.0-5.4) 10^6/ul Hgb (14.0-18.0) g/dl Hct (42-52) % MCV (80-94) fL MCH (27-31) pg MCHC (31-36) g/dl RDW (10.5-15) % Plt Count (150-450) 10^3/ul MPV (7.4-10.4) um3 Immature Gran % (Auto) (0-9) % Neut % (Auto) (38-83) % Lymph % (Auto) (25-47) % [place] % (Auto) (1-9) % Eos % (Auto) (0-6) % Baso % (Auto) (0-2) % Absolute Neuts (auto) (1.5-7.7) 10^3/ul Absolute Lymphs (auto) (1.0-4.8) 10^3/ul Absolute Monos (auto) (0-0.8) 10^3/ul Absolute Eos (auto) (0-0.6) 10^3/ul Absolute Basos (auto) (0-0.2) 10^3/ul Absolute Nucleated RBC 10^3/ul Neutrophils % (38-83) % Band Neutrophils % (0-8) % Lymphocytes % (25-47) % Reactive Lymphs % (0-6) % Monocytes % (0-13) % Eosinophils % (0-6) % Nucleated RBC % Normal RBC Morphology (Normal) INR (Anticoag Therapy) (0.89-1.11) APTT (26.0-36.3) seconds Sodium (133-145) mmol/L Potassium (3.5-5.0) mmol/L Chloride (101-111) mmol/L Carbon Dioxide (22-32) mmol/L Anion Gap (2-11) mmol/L BUN (6-24) mg/dL Creatinine (0.67-1.17) mg/dL Est GFR ( Amer) (>60) Est GFR (Non-Af Amer) (>60) BUN/Creatinine Ratio (8-20) Glucose (70-100) mg/dL Lactic Acid 1.0 (0.5-2.0) mmol/L Calcium (8.6-10.3) mg/dL Total Bilirubin (0.2-1.0) mg/dL AST (13-39) U/L ALT (7-52) U/L Alkaline Phosphatase (34-104) U/L Total Creatine Kinase (10-223) U/L Troponin I (<0.04) ng/mL C-Reactive Protein (< 5.00) mg/L B-Natriuretic Peptide 129 H ( - 100) pg/mL Total Protein (6.4-8.9) g/dL Albumin (3.2-5.2) g/dL Globulin (2-4) g/dL Albumin/Globulin Ratio (1-3) Urine Color Urine Appearance Urine pH (5-9) Ur Specific [place] (1.010-1.030) Urine Protein (Negative) Urine Ketones (Negative) Urine Blood (Negative) Urine Nitrate (Negative) Urine Bilirubin (Negative) Urine Urobilinogen (Negative) Ur Leukocyte Esterase (Negative) U Random Total Protein mg/dL Urine Glucose (Negative) Urine Ascorbic Acid (Negative) Influenza A (Rapid) Negative (Negative) Influenza B (Rapid) Negative (Negative) 02/01/17 02/01/17 Range/Units 14:16 15:34 WBC (3.5-10.8) 10^3/ul RBC (4.0-5.4) 10^6/ul Hgb (14.0-18.0) g/dl Hct (42-52) % MCV (80-94) fL MCH (27-31) pg MCHC (31-36) g/dl RDW (10.5-15) % Plt Count (150-450) 10^3/ul MPV (7.4-10.4) um3 Immature Gran % (Auto) (0-9) % Neut % (Auto) (38-83) % Lymph % (Auto) (25-47) % [place] % (Auto) (1-9) % Eos % (Auto) (0-6) % Baso % (Auto) (0-2) % Absolute Neuts (auto) (1.5-7.7) 10^3/ul Absolute Lymphs (auto) (1.0-4.8) 10^3/ul Absolute Monos (auto) (0-0.8) 10^3/ul Absolute Eos (auto) (0-0.6) 10^3/ul Absolute Basos (auto) (0-0.2) 10^3/ul Absolute Nucleated RBC 10^3/ul Neutrophils % (38-83) % Band Neutrophils % (0-8) % Lymphocytes % (25-47) % Reactive Lymphs % (0-6) % Monocytes % (0-13) % Eosinophils % (0-6) % Nucleated RBC % Normal RBC Morphology (Normal) INR (Anticoag Therapy) (0.89-1.11) APTT (26.0-36.3) seconds Sodium (133-145) mmol/L Potassium (3.5-5.0) mmol/L Chloride (101-111) mmol/L Carbon Dioxide (22-32) mmol/L Anion Gap (2-11) mmol/L BUN (6-24) mg/dL Creatinine (0.67-1.17) mg/dL Est GFR ( Amer) (>60) Est GFR (Non-Af Amer) (>60) BUN/Creatinine Ratio (8-20) Glucose (70-100) mg/dL Lactic Acid (0.5-2.0) mmol/L Calcium (8.6-10.3) mg/dL Total Bilirubin (0.2-1.0) mg/dL AST (13-39) U/L ALT (7-52) U/L Alkaline Phosphatase (34-104) U/L Total Creatine Kinase (10-223) U/L Troponin I (<0.04) ng/mL C-Reactive Protein (< 5.00) mg/L B-Natriuretic Peptide ( - 100) pg/mL Total Protein (6.4-8.9) g/dL Albumin (3.2-5.2) g/dL Globulin (2-4) g/dL Albumin/Globulin Ratio (1-3) Urine Color Yellow Urine Appearance Clear Urine pH 5.0 (5-9) Ur Specific [place] 1.009 L (1.010-1.030) Urine Protein Negative (Negative) Urine Ketones Negative (Negative) Urine Blood Negative (Negative) Urine Nitrate Negative (Negative) Urine Bilirubin Negative (Negative) Urine Urobilinogen Negative (Negative) Ur Leukocyte Esterase Negative (Negative) U Random Total Protein 11 mg/dL Urine Glucose Negative (Negative) Urine Ascorbic Acid * H (Negative) Influenza A (Rapid) (Negative) Influenza B (Rapid) (Negative) Microbiology and Other Data: Microbiology 02/04/17 13:25 Stool Gross Appearance - Final Stool C. difficile DNA Amplification - Final 027 Presumptive NEGATIVE Toxigenic C.diff NEGATIVE Assess/Plan/Problems-Billing Mr Ji Guidry is a 71 yo M who has a h/o HTN, CAD, h/o PE and depression who presented to the ER with c/o weakness and malaise. - Patient Problems (1) Diarrhea Current Visit: Yes Status: Acute Code(s): R19.7 - DIARRHEA, UNSPECIFIED SNOMED Code(s): 15747417 Comment: C diff negative. Abx changed to amoxicillin and so far the patient is tolerating. (2) Atrial fibrillation with RVR Current Visit: Yes Status: Acute Code(s): I48.91 - UNSPECIFIED ATRIAL FIBRILLATION SNOMED Code(s): 780873557186704 Comment: Pt went back into rapid afib last evening. He converted to NSR this AM. He will need to follow up with Dr. Funes in the next couple weeks. ? event monitor to determine if he is going in/out of afib. Continue metoprolol XL alone for now as he is bradycardic at baseline. The patient is in his deductible phase therefore the eliquis would be $300/month so will change to lovenox bridging to coumadin. (3) Disseminated Lyme disease Current Visit: Yes Status: Acute Code(s): A69.20 - LYME DISEASE, UNSPECIFIED SNOMED Code(s): 41683501 Comment: The patient will continue on amoxicillin x 12 more days. Follow up with Dr. Cash early next week. (4) Elevated troponin Current Visit: Yes Status: Acute Code(s): R74.8 - ABNORMAL LEVELS OF OTHER SERUM ENZYMES SNOMED Code(s): 077985328 Comment: Likely secondary to rapid afib and hypotension. He will need to follow up with cardiology as an outpatient to determine if catheterization should be pursued. (5) DVT prophylaxis Current Visit: Yes Status: Acute Code(s): ZAE0236 - SNOMED Code(s): 123192986 Comment: niraj (6) Full code status Current Visit: Yes Status: Acute Code(s): Z78.9 - OTHER SPECIFIED HEALTH STATUS SNOMED Code(s): 861888456 Status and Disposition: d/c home
[2017-02-05 12:30] VITALS: BP 134/82
--- NOTE | 2017-02-06 04:22 | DS ---
CC: Dr. Ly; Dr. Cash; Dr. Funes * DISCHARGE SUMMARY: DATE OF ADMISSION: 02/01/17 DATE OF DISCHARGE: 02/05/17 PRIMARY CARE PROVIDER: Dr. Ly. HYDRAULIC PRESS IN OPERATOR: Dr. Funes. INFECTIOUS DISEASE SPECIALIST: Dr. Cash. PRINCIPAL DIAGNOSES: 1. Early disseminated Lyme disease. 2. Paroxysmal atrial fibrillation with rapid ventricular response. SECONDARY DIAGNOSES: 1. Hypertension. 2. Hyperlipidemia. 3. Coronary artery disease. DISCHARGE MEDICATIONS: 1. Nasalide 2 sprays both nostrils at bedtime. 2. Wellbutrin SR 200 mg p.o. b.i.d. 3. Omeprazole 20 mg p.o. b.i.d. 4. Simvastatin 20 mg p.o. daily. 5. Sertraline 50 mg p.o. daily. 6. Amlodipine 5 mg p.o. daily. 7. Metoprolol XL 50 mg p.o. daily. 8. Coumadin 5 mg p.o. daily. 9. Lovenox 80 mg subcutaneous q.12 hours until INR is therapeutic. 10. Amoxicillin 500 mg p.o. t.i.d. x10 days. 11. Tylenol 650 mg p.o. q.4 hours p.r.n. pain. HOSPITAL COURSE: Mr. Dwight Guidry is a 72-year-old male who presented to the emergency room on 02/01/17 with complaints of malaise and leg pain. The patient in the emergency room was found to be weak and with an elevated white blood cell count and CRP. The hospitalist group was asked to admit the patient. On the night of admission , the patient received a dose of ceftriaxone following which he became markedly hypotensive and went into rapid atrial fibrillation. The patient ultimately received IV digoxin and converted to normal sinus rhythm. The patient was started on amiodarone infusion, which continued for approximately 24 hours. The patient was seen in consultation by Dr. Raymond as his troponin bumped to 0.13. Dr. Raymond agreed with continuing the amiodarone drip for the time period and the heparin drip. It is felt that the patient would need evaluation , most likely cardiac catheterization; however, it is felt that this could be performed as an outpatient. The patient continued to feel poorly in that he felt very weak. He was seen in consultation by Dr. Cash, who was able to identify early disseminated Lyme disease based on multiple areas of erythema migrans on the patient's back. The patient was started on doxycycline. He slowly began to improve. On the morning of 02/04/17, he started having profuse diarrhea. He estimated that he went to the bathroom approximately 20 times. C. difficile testing was sent and was negative. He was given Imodium. His diarrhea has since resolved. Overall, the patient is feeling markedly improved with improved energy and no longer weak. He did go back into rapid atrial fibrillation on the night of the into the morning of the , but again spontaneously converted to normal sinus rhythm. I am suspicious this episode of AFib may have been related to fluid shifts and electrolyte shifts related to the profuse diarrhea he was having. At this point, it is felt that the patient is stable for discharge home. He will need to follow up with Dr. Funes in the next 1 to 2 weeks for further evaluation of his new diagnosis of atrial fibrillation and the elevated troponin identified in the hospital. Perhaps, he would benefit from catheterization to evaluate for significant coronary artery disease and possibly an event monitor to evaluate, as patient is going in and out of AFib as he is not completely aware of when he goes into atrial fibrillation. The patient will need to continue on amoxicillin (the patient was changed to this after he began to have profuse diarrhea and doxycycline) for another 10 days. The patient will follow up with Dr. Cash early next week. FOLLOWUP CONCERNS: The patient is being discharged home today, 02/05/17. ACTIVITY LEVEL: As tolerated. DIET: Regular. CONDITION ON DISCHARGE: Improved and stable. TIME SPENT: 35 minutes was spent discharging this patient. [id number]/[facility] #: [id number] [facility]ophy
[2017-02-06 16:32] LABS: Lyme Disease IgG Ab WB Negative (Negative)
== END 2017-02-05 13:20 | disposition home or self-care (01) | DRG 868 ==
LOC: ED 11:12 → MEDTELE 15:58 → ICU 23:20 → OBSVTOIN 23:42 → MEDTELE 02-03 07:57
PROVIDERS: ADMIT Internal Medicine; ATTEND Hospitalist
DX: A69.20 Lyme disease, unspecified (principal); C79.9 Secondary malignant neoplasm of unspecified site; I95.9 Hypotension, unspecified; C43.9 Malignant melanoma of skin, unspecified; I11.9 Hypertensive heart disease without heart failure; I48.0 Paroxysmal atrial fibrillation; E86.0 Dehydration; I35.2 Nonrheumatic aortic (valve) stenosis with insufficiency; F32.9 Major depressive disorder, single episode, unspecified; I25.10 Atherosclerotic heart disease of native coronary artery without angina pectoris; E78.5 Hyperlipidemia, unspecified; I25.2 Old myocardial infarction; F17.210 Nicotine dependence, cigarettes, uncomplicated; R74.8 Abnormal levels of other serum enzymes; Z82.49 Family history of ischemic heart disease and other diseases of the circulatory system; Z79.899 Other long term (current) drug therapy; Z86.711 Personal history of pulmonary embolism; Z95.5 Presence of coronary angioplasty implant and graft; N28.9 Disorder of kidney and ureter, unspecified
CPT/HCPCS: 36415; 71010; 71020; 80048; 80053; 81003; 82550; 82570; 83605; 83735; 83880; 84145; 84156; 84443; 84484; 85025; 85379; 85610; 85652; 85730; 86038; 86140; 86200; 86617; 86618; 87040; 87086; 87493; 87502; 93005; 93306; A9270-GY; J0282; J0696; J1160; J1644; J1720; J1940

== ENCOUNTER 2017-02-17 14:22 | Inpatient (IN) | payer MEDICARE ==
[2017-02-17] MEDS ORDERED: Morphine INJ* 4 MG/ML 1 ML SYRINGE IV ONE (17:51)
[2017-02-17] MEDS ORDERED: Ondansetron INJ* 2 MG/ML VIAL IV ONE (17:51)
[2017-02-17 18:34] LABS: Hematocrit 40 % (42-52); Hemoglobin 13.1 g/dl (14.0-18.0); Mean Corpuscular HGB Conc 33 g/dl (31-36); Mean Corpuscular Hemoglobin 30 pg (27-31); Mean Corpuscular Volume 90 fL (80-94); Mean Platelet Volume 8 um3 (7.4-10.4); Red Blood Count 4.42 10^6/ul (4.0-5.4); Red Cell Distribution Width 13 % (10.5-15); White Blood Count 13.4 10^3/ul (3.5-10.8)
[2017-02-17 18:49] LABS: Albumin 3.6 g/dL (3.2-5.2); BUN/Creatinine Ratio 15.5 (8-20); C Reactive Protein 21.34 mg/L (< 5.00); Calcium 9.2 mg/dL (8.6-10.3); EGFR African American 79.6 (>60); EGFR Non-African American 61.9 (>60); Globulin 3.9 g/dL (2-4); Potassium 4.6 mmol/L (3.5-5.0); Total Bilirubin 0.3 mg/dL (0.2-1.0); Total Protein 7.5 g/dL (6.4-8.9)
--- NOTE | 2017-02-17 19:09 | ED ---
Layne Esposito Edward, scribed for Philip Ford MD on 02/17/17 at 1736 . Abdominal Pain/Male - HPI Summary HPI Summary: 72 y/o male presents to ED c/o sudden onset ABD pain starting at 01:30 this morning, keeping the patient up at night. The ABD pain started in the L side and has moved to the right side of the ABD since it started at around 13:00 to 13:30. The pain started as discomfort and has gotten worse. He states it is aggravated with movement. Associated sx: swollen ABD, fever (subjective last night), fatigue, and nausea. Denies CP, SOB, vomiting, troubles with bowel movements and troubles with urination. The patient has not eaten today but has no decrease in appetite. PMHx Lyme disease, PR. No PMHx kidney stones. - History of Current Complaint Chief Complaint: EDAbdPain Stated Complaint: ABD PAIN RIGHT SIDE Time Seen by Provider: 02/17/17 17:26 Hx Obtained From: Patient Onset/Duration: Sudden Onset, Lasting Hours - 01:30 this morning Timing: Constant Pain Intensity: 3 Pain Scale Used: 0-10 Numeric Location: Other - R side Associated Signs And Symptoms: Positive: Nausea, Other - Fatigue. No SOB. Negative: Chest Pain, Constipation, Urinary Symptoms, Vomiting - Allergies/Home Medications Allergies/Adverse Reactions: Allergies Allergy/AdvReac Type Severity Reaction Status Date / Time No Known Allergies Allergy Verified 02/01/17 12:28 PMH/Surg Hx/FS Hx/Imm Hx Previously Healthy: No Endocrine/Hematology History: Denies: Hx Diabetes Cardiovascular History: Reports: Hx Hypercholesterolemia, Hx Hypertension Denies: Hx Myocardial Infarction Sensory History: Reports: Hx Contacts or Glasses - reading Denies: Hx Hearing Aid Opthamlomology History: Reports: Hx Contacts or Glasses - reading - Cancer History Cancer Type, Location and Year: systemic melanoma [id number], [id number] - Surgical History Surgery Procedure, Year, and Place: 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 Negative: Vomiting Genitourinary: Negative Negative: dysuria Musculoskeletal: Negative Skin: Negative Neurological: Negative Psychological: Normal All Other Systems Reviewed And Are Negative: Yes Physical Exam - Summary Physical Exam Summary: The patient is well-nourished in no acute distress and in no acute pain. The skin is warm and dry and skin color reflects adequate perfusion. HEENT: The head is normocephalic and atraumatic. The pupils are equal and reactive. The conjunctivae are clear and without drainage. Nares are patent and without drainage. Mouth reveals dry mucous membranes and the throat is without erythema and exudate. The external ears are intact. The ear canals are patent and without drainage. The tympanic membranes are intact. Neck is supple with full range of motion and non-tender. There are no carotid bruits. There is no neck vein distension. Respiratory: Chest is non-tender. Lungs are clear to auscultation and breath sounds are symmetrical and equal. Cardiovascular: Hear is regular rate and rhythm. There is no murmur or rub auscultated. There is no peripheral edema and pulses are symmetrical and equal. Abdomen: There is explicit RLQ pain and guarding. There is also RUQ pain. There is no tenderness in the L side of the ABD. There are normal bowel sounds heard in all four quadrants and there is no organomegaly palpated. Musculoskeletal: There is no back pain noted. Extremities are non-tender with full range of motion. There is good capillary refill. There is no peripheral edema or calf tenderness elicited. Neurological: Patient is alert and oriented to person, place and time. The patient has symmetrical motor strength in all four extremities. Cranial nerves are grossly intact. Deep tendon reflexes are symmetrical and equal in all four extremities. Psychiatric: The patient has an appropriate affect and does not exhibit any anxiety or depression. Triage Information Reviewed: Yes Vital Signs On Initial Exam: Initial Vitals Temp Pulse Resp BP Pulse Ox 97.9 F 58 20 146/78 97 02/17/17 14:27 02/17/17 14:27 02/17/17 14:27 02/17/17 14:27 02/17/17 14:27 Vital Signs Reviewed: Yes Diagnostics - Vital Signs Vital Signs Temp Pulse Resp BP Pulse Ox 02/17/17 15:39 98.2 F 53 20 140/64 98 02/17/17 14:27 97.9 F 58 20 146/78 97 - Laboratory Lab Results: Lab Results 02/17/17 02/17/17 02/17/17 Range/Units 18:10 18:10 18:10 WBC 13.4 H (3.5-10.8) 10^3/ul RBC 4.42 (4.0-5.4) 10^6/ul Hgb 13.1 L (14.0-18.0) g/dl Hct 40 L (42-52) % MCV 90 (80-94) fL MCH 30 (27-31) pg MCHC 33 (31-36) g/dl RDW 13 (10.5-15) % Plt Count 362 (150-450) 10^3/ul MPV 8 (7.4-10.4) um3 Neut % (Auto) 84.9 H (38-83) % Lymph % (Auto) 8.9 L (25-47) % [place] % (Auto) 4.9 (1-9) % Eos % (Auto) 0.4 (0-6) % Baso % (Auto) 0.9 (0-2) % Absolute Neuts (auto) 11.3 H (1.5-7.7) 10^3/ul Absolute Lymphs (auto) 1.2 (1.0-4.8) 10^3/ul Absolute Monos (auto) 0.7 (0-0.8) 10^3/ul Absolute Eos (auto) 0.1 (0-0.6) 10^3/ul Absolute Basos (auto) 0.1 (0-0.2) 10^3/ul Absolute Nucleated RBC 0 10^3/ul Nucleated RBC % 0 INR (Anticoag Therapy) (0.89-1.11) Sodium 136 (133-145) mmol/L Potassium 4.6 (3.5-5.0) mmol/L Chloride 104 (101-111) mmol/L Carbon Dioxide 25 (22-32) mmol/L Anion Gap 7 (2-11) mmol/L BUN 18 (6-24) mg/dL Creatinine 1.16 (0.67-1.17) mg/dL Est GFR ( Amer) 79.6 (>60) Est GFR (Non-Af Amer) 61.9 (>60) BUN/Creatinine Ratio 15.5 (8-20) Glucose 92 (70-100) mg/dL Lactic Acid 0.8 (0.5-2.0) mmol/L Calcium 9.2 (8.6-10.3) mg/dL Total Bilirubin 0.30 (0.2-1.0) mg/dL AST 16 (13-39) U/L ALT 24 (7-52) U/L Alkaline Phosphatase 94 (34-104) U/L C-Reactive Protein 21.34 H (< 5.00) mg/L Total Protein 7.5 (6.4-8.9) g/dL Albumin 3.6 (3.2-5.2) g/dL Globulin 3.9 (2-4) g/dL Albumin/Globulin Ratio 0.9 L (1-3) Amylase 41 (29-103) U/L Lipase 51 (11.0-82.0) U/L 02/17/ Range/Units 18:10 WBC (3.5-10.8) 10^3/ul RBC (4.0-5.4) 10^6/ul Hgb (14.0-18.0) g/dl Hct (42-52) % MCV (80-94) fL MCH (27-31) pg MCHC (31-36) g/dl RDW (10.5-15) % Plt Count (150-450) 10^3/ul MPV (7.4-10.4) um3 Neut % (Auto) (38-83) % Lymph % (Auto) (25-47) % [place] % (Auto) (1-9) % Eos % (Auto) (0-6) % Baso % (Auto) (0-2) % Absolute Neuts (auto) (1.5-7.7) 10^3/ul Absolute Lymphs (auto) (1.0-4.8) 10^3/ul Absolute Monos (auto) (0-0.8) 10^3/ul Absolute Eos (auto) (0-0.6) 10^3/ul Absolute Basos (auto) (0-0.2) 10^3/ul Absolute Nucleated RBC 10^3/ul Nucleated RBC % INR (Anticoag Therapy) 3.13 H (0.89-1.11) Sodium (133-145) mmol/L Potassium (3.5-5.0) mmol/L Chloride (101-111) mmol/L Carbon Dioxide (22-32) mmol/L Anion Gap (2-11) mmol/L BUN (6-24) mg/dL Creatinine (0.67-1.17) mg/dL Est GFR ( Amer) (>60) Est GFR (Non-Af Amer) (>60) BUN/Creatinine Ratio (8-20) Glucose (70-100) mg/dL Lactic Acid (0.5-2.0) mmol/L Calcium (8.6-10.3) mg/dL Total Bilirubin (0.2-1.0) mg/dL AST (13-39) U/L ALT (7-52) U/L Alkaline Phosphatase (34-104) U/L C-Reactive Protein (< 5.00) mg/L Total Protein (6.4-8.9) g/dL Albumin (3.2-5.2) g/dL Globulin (2-4) g/dL Albumin/Globulin Ratio (1-3) Amylase (29-103) U/L Lipase (11.0-82.0) U/L Result Diagrams: 02/17/17 18:10 02/17/17 18:10 Lab Statement: Any lab studies that have been ordered have been reviewed, and results considered in the medical decision making process. - EKG 1 EKG Rhythm: Sinus Bradycardia - @ 54 bpm EKG Interpretation: 18:31 - Probable anteroseptal infarct, normal axis Abdominal Pain Fem Course/Dx - Course Assessment/Plan: 72 y/o male presents to ED c/o sudden onset ABD pain starting at 01:30 this morning, keeping the patient up at night. The ABD pain started in the L side and has moved to the right side of the ABD since it started at around 13:00 to 13:30. The pain started as discomfort and has gotten worse. He states it is aggravated with movement. Associated sx: swollen ABD, fever ( subjective last night), fatigue, and nausea. Denies CP, SOB, vomiting, troubles with bowel movements and troubles with urination. The patient has not eaten today but has no decrease in appetite. PMHx Lyme disease, PR. No PMHx kidney stones. EKG at 18:31 shows sinus bradycardia @ 54 bpm with probable anteroseptal infarct and normal axis. Pt will be signed out to Dr. Estrada at shift change awaiting ABD/PEL CT results. - Diagnoses Differential Diagnosis/HQI/PQRI: Appendicitis, Bowel Obstruction, Constipation, Ureteral Stone Provider Diagnoses: Abdominal pain Discharge - Discharge Plan Condition: Stable Disposition: OTHER Discharge Disposition Comment: sign out to Dr. Estrada at shift change Referrals: Willy Ly MD [Primary Care Provider] - The documentation as recorded by the Layne miles Edward accurately reflects the service I personally performed and the decisions made by me, Philip Ford MD.
[2017-02-17 19:34] LABS: Urine Bilirubin Negative (Negative); Urine Glucose Negative (Negative); Urine Nitrite Negative (Negative)
[2017-02-17] MEDS ORDERED: Iodixanol* (CONTRAST) 320 MG/ML 100 ML SDV IV ONE (20:03)
--- NOTE | 2017-02-17 20:56 | RAD ---
INDICATION: RIGHT lower quadrant pain. Question appendicitis, although pathology, colitis. History of systemic melanoma. COMPARISON: August 04, 2008 PET/CT TECHNIQUE: Multidetector CT images were obtained from the lung bases to the ischial tuberosities with 91 mL Visipaque 320 IV and oral contrast. Multiplanar reformation. REPORT: Minimal dependent basilar atelectasis. Coronary artery calcifications. Unremarkable liver, gallbladder, pancreas, and spleen aside from a few punctate calcified splenic granulomas. Negative for CT abnormality of the upper GI or small bowel. Inflamed retrocecal appendix measuring up to 8 mm diameter and remarkable for a few small appendicoliths at the distal segment. Mild periappendiceal inflammatory change. No periappendiceal abscess evident. Mild colonic diverticulosis without findings of diverticulitis. Trace free fluid at the RIGHT lower quadrant. Negative for free air. Negative for hernias. Unremarkable adrenal glands. Mildly atrophic kidneys with small cortical cysts. No suspicious focal renal lesions or hydronephrosis. Symmetric nephrograms and pyelograms. Unremarkable ureters and urinary bladder. Symmetric seminal vesicles. Negative for lymphadenopathy. Moderately severe atherosclerotic plaque of the abdominal aorta and iliac arteries without aneurysm. Partial physiologic distention of the IVC. Negative for suspicious focal osseous lesions. IMPRESSION: 1. Acute appendicitis without evidence for periappendiceal abscess. 2. No suspicious focal visceral lesions or lymphadenopathy.
[2017-02-17] MEDS ORDERED: Phytonadione Oral Solution* 5 MG/25 ML UDC PO ONE (22:27)
[2017-02-17] MEDS ORDERED: Acetaminophen TAB* 325 MG PO PRN (22:41)
[2017-02-17] MEDS ORDERED: Ondansetron INJ* 2 MG/ML VIAL IV PRN (22:41)
[2017-02-17] MEDS ORDERED: Morphine INJ* 2 MG/ML 1 ML SYRINGE IV PRN (22:41)
[2017-02-17] MEDS: NS 0.9% 1000 ML* 1,000 ML IV SCH (23:42)
[2017-02-18] MEDS: Metoprolol Succinate XL TAB* 50 MG PO SCH ×2 (00:03→08:21)
--- NOTE | 2017-02-18 00:41 | ED ---
Marilee Esposito Alfonso, scribed for Artur Estrada on 02/17/17 at 2129 . Progress - Progress Note Progress Note: CT A/P reveals, per radiologist, 1. Acute appendicitis without evidence for periappendiceal abscess. 2. No suspicious focal visceral lesions or lymphadenopathy. Consulted Dr. Fry (surgeon) who agrees to admit the patient. Course/Dx - Diagnoses Provider Diagnoses: Acute appendicitis - Provider Notifications Discussed Care Of Patient With: Maik Fry Time Discussed With Above Provider: 21:53 Instructed by Provider To: Other - Consulted Dr. Fry (surgeon) who agrees to admit the patient. The documentation as recorded by the Marilee miles Alfonso accurately reflects the service I personally performed and the decisions made by Sean harrison Emmanuel.
--- NOTE | 2017-02-18 01:57 | PN ---
Progress Note - Progress Note Date of Service: 02/18/17 Note: Full consult dictated. Because of patients recent bout with Lyme disease and atrial fibrillation, the patient was scheduled to have a stress test early this week. I would order one for today but they are not performed normally on the weekend anymore. Therefore, I recommend that cardiology be consulted in this instance to decide if calling a team in for a stress test prior to surgery is necessary.
[2017-02-18 05:57] LABS: Hematocrit 37 % (42-52); Hemoglobin 12.3 g/dl (14.0-18.0); Mean Corpuscular HGB Conc 34 g/dl (31-36); Mean Corpuscular Hemoglobin 30 pg (27-31); Mean Corpuscular Volume 90 fL (80-94); Mean Platelet Volume 7 um3 (7.4-10.4); Red Blood Count 4.07 10^6/ul (4.0-5.4); Red Cell Distribution Width 13 % (10.5-15); White Blood Count 9.2 10^3/ul (3.5-10.8)
[2017-02-18 06:14] LABS: BUN/Creatinine Ratio 13.9 (8-20); Calcium 8.1 mg/dL (8.6-10.3); EGFR African American 86.4 (>60); EGFR Non-African American 67.2 (>60); Potassium 4.2 mmol/L (3.5-5.0)
--- NOTE | 2017-02-18 08:18 | PN ---
Progress Note - Progress Note Date of Service: 02/18/17 SOAP: Subjective: He feels better this morning No pain at rest and he is ambulating to the bathroom without pain. He is hungry Objective: Temp Pulse Resp BP Pulse Ox 97.5 F 49 16 117/52 96 02/18/17 03:21 02/18/17 03:21 02/18/17 03:21 02/18/17 03:21 02/18/17 03:21 Intake & Output 02/16/17 02/17/17 02/18/17 02/19/17 06:59 06:59 06:59 06:59 Intake Total 98 Output Total 850 Balance -752 Weight 162 lb Intake: IVPB 98 Oral 0 Output: Urine 850 Other: Date of Last Bowel t Movement PEX: Comfortable Lungs are clear Abd is soft and non-distended. Bowel sounds are present. There is mild tenderness in the right lower quadrant without rebound, guarding or peritoneal signs. No mass Ext without edema Laboratory Last Values WBC 9.2 10^3/ul (3.5-10.8) 02/18/17 05:39 RBC 4.07 10^6/ul (4.0-5.4) 02/18/17 05:39 Hgb 12.3 g/dl (14.0-18.0) L 02/18/17 05:39 Hct 37 % (42-52) L 02/18/17 05:39 MCV 90 fL (80-94) 02/18/17 05:39 MCH 30 pg (27-31) 02/18/17 05:39 MCHC 34 g/dl (31-36) 02/18/17 05:39 RDW 13 % (10.5-15) 02/18/17 05:39 Plt Count 293 10^3/ul (150-450) 02/18/17 05:39 MPV 7 um3 (7.4-10.4) L 02/18/17 05:39 Neut % (Auto) 65.9 % (38-83) 02/18/17 05:39 Lymph % (Auto) 21.1 % (25-47) L 02/18/17 05:39 [place] % (Auto) 9.9 % (1-9) H 02/18/17 05:39 Eos % (Auto) 1.8 % (0-6) 02/18/17 05:39 Baso % (Auto) 1.3 % (0-2) 02/18/17 05:39 Absolute Neuts (auto) 6.1 10^3/ul (1.5-7.7) 02/18/17 05:39 Absolute Lymphs (auto) 1.9 10^3/ul (1.0-4.8) 02/18/17 05:39 Absolute Monos (auto) 0.9 10^3/ul (0-0.8) H 02/18/17 05:39 Absolute Eos (auto) 0.2 10^3/ul (0-0.6) 02/18/17 05:39 Absolute Basos (auto) 0.1 10^3/ul (0-0.2) 02/18/17 05:39 Absolute Nucleated RBC 0 10^3/ul 02/18/17 05:39 Nucleated RBC % 0 02/18/17 05:39 INR (Anticoag Therapy) 2.60 (0.89-1.11) H 02/18/17 05:39 Sodium 135 mmol/L (133-145) 02/18/17 05:39 Potassium 4.2 mmol/L (3.5-5.0) 02/18/17 05:39 Chloride 105 mmol/L (101-111) 02/18/17 05:39 Carbon Dioxide 24 mmol/L (22-32) 02/18/17 05:39 Anion Gap 6 mmol/L (2-11) 02/18/17 05:39 BUN 15 mg/dL (6-24) 02/18/17 05:39 Creatinine 1.08 mg/dL (0.67-1.17) 02/18/17 05:39 Est GFR ( Amer) 86.4 (>60) 02/18/17 05:39 Est GFR (Non-Af Amer) 67.2 (>60) 02/18/17 05:39 BUN/Creatinine Ratio 13.9 (8-20) 02/18/17 05:39 Glucose 83 mg/dL (70-100) 02/18/17 05:39 Lactic Acid 0.8 mmol/L (0.5-2.0) 02/17/17 18:10 Calcium 8.1 mg/dL (8.6-10.3) L 02/18/17 05:39 Total Bilirubin 0.30 mg/dL (0.2-1.0) 02/17/17 18:10 AST 16 U/L (13-39) 02/17/17 18:10 ALT 24 U/L (7-52) 02/17/17 18:10 Alkaline Phosphatase 94 U/L (34-104) 02/17/17 18:10 C-Reactive Protein 21.34 mg/L (< 5.00) H 02/17/17 18:10 Total Protein 7.5 g/dL (6.4-8.9) 02/17/17 18:10 Albumin 3.6 g/dL (3.2-5.2) 02/17/17 18:10 Globulin 3.9 g/dL (2-4) 02/17/17 18:10 Albumin/Globulin Ratio 0.9 (1-3) L 02/17/17 18:10 Amylase 41 U/L (29-103) 02/17/17 18:10 Lipase 51 U/L (11.0-82.0) 02/17/17 18:10 Urine Color Yellow 02/17/17 19:26 Urine Appearance Clear 02/17/17 19:26 Urine pH 5.0 (5-9) 02/17/17 19:26 Ur Specific [place] 1.015 (1.010-1.030) 02/17/17 19:26 Urine Protein Negative (Negative) 02/17/17 19:26 Urine Ketones Negative (Negative) 02/17/17 19:26 Urine Blood Negative (Negative) 02/17/17 19:26 Urine Nitrate Negative (Negative) 02/17/17 19:26 Urine Bilirubin Negative (Negative) 02/17/17 19:26 Urine Urobilinogen Negative (Negative) 02/17/17 19:26 Ur Leukocyte Esterase Negative (Negative) 02/17/17 19:26 Urine Glucose Negative (Negative) 02/17/17 19:26 Urine Ascorbic Acid * (Negative) H 02/17/17 19:26 Assessment: Acute appendicitis-abdominal pain much improved on IV anbx Nl WBC today No fever, no sepsis, no peritonitis Recent new onset atrial fibrillation on coumadin-elevated INR at 2.6 after Vitamin K last night. He was scheduled for outpatient stress test after his recent admission. Plan: Cardiology consult for cardiac risk assessment. He shows no signs of sepsis or peritonitis and his abdominal pain is much improved after 2 doses of IV antibiotics. If he is felt to be an unacceptable risk for surgery from a cardiac standpoint or further cardiac workup is indicated, this appendicitis can probably be successfully treated with IV and oral antibiotics (despite having a small appendicolith in the distal appendix) with consideration of an interval appendectomy in 6-12 weeks if non-operative management is successful. Discussed with hospitalist and Dr. Francis from Cardiology is going to see him this morning in consultation. I discussed with patient and explained situation and the options to him and he understands our discussion. Will await cardiology consult and proceed accordingly. He would need IV FFP pre-op with elevated INR.
[2017-02-18] MEDS: buPROPion SR TAB.SR* 200 MG PO SCH ×2 (08:20→21:23)
[2017-02-18] MEDS: amLODIPine TAB* 5 MG PO SCH (08:21)
[2017-02-18] MEDS: Sertraline* 50 MG TAB PO SCH (08:21)
[2017-02-18] MEDS: Omeprazole CAP* 20 MG PO SCH ×2 (08:21→21:23)
[2017-02-18] MEDS: NS 0.9% 1000 ML* 1,000 ML IV SCH ×2 (08:25→17:12)
--- NOTE | 2017-02-18 08:25 | PN ---
Subjective Date of Service: 02/18/17 Interval History: Mr. Ji Guidry is a 72 yo male with a recent hx of disseminated lyme disease (recently admitted from 02/01-02/05) and paroxysmal atrial fibrillation who presented to the ED with fever, abdominal pain, and nausea, first noted on . He reports having follow-up with ID on Monday and has stopped his amoxicillin. During his last admission, the patient's disseminated lyme disease prompted rapid afib. Patient received IV digoxin and amiodarone over the course of his admission. During periods of high stress, patient was noted to convert to rapid afib and would spontaneous convert back to NSR. The patient did have elevated troponins and was recommended to have an outpatient stress test, which was scheduled to occur February 23. Currently, the patient is lying in bed. He denies CP, SOB. He denies abd pain with ambulation or while resting. Denies nausea and states he actually feels hungry. Family History: Unchanged from Admission Social History: Unchanged from Admission Past Medical History: Unchanged from Admission Objective Active Medications: Acetaminophen (Tylenol Tab*) 650 mg PO Q6H PRN Amlodipine Besylate (Norvasc Tab*) 5 mg PO DAILY [facility] Atorvastatin Calcium (Lipitor*) 10 mg PO DAILY [facility] Bupropion HCl (Wellbutrin Sr Tab*) 200 mg PO BID EVEL[facility] Fluticasone Propionate (Flonase Nasal [place] 50mcg*) 2 spray BOTH NARES BEDTIME [facility]EL[facility] Sodium Chloride (Ns 0.9% 1000 Ml*) 1,000 mls @ 125 mls/hr IV PER RATE [facility] Piperacillin Sod/Tazobactam (Sod 3.375 gm/ Sodium Chloride) 100 mls @ 25 mls/ hr IVPB Q8H [facility] Metoprolol Succinate (Toprol Xl Tab*) 50 mg PO DAILY [facility] Morphine Sulfate (Morphine Inj (Syringe)*) 2 mg IV Q2H PRN Omeprazole (Prilosec Cap*) 20 mg PO BID [facility] Ondansetron HCl (Zofran Inj*) 4 mg IV Q6H PRN Sertraline HCl (Zoloft*) 50 mg PO DAILY [facility] Vital Signs 02/17/17 02/17/17 02/18/17 23:00 23:34 00:43 Temperature 98.5 F 98.3 F Pulse Rate 60 Respiratory 18 18 Rate Blood Pressure 137/67 (mmHg) O2 Sat by Pulse 96 Oximetry 02/18/17 02/18/17 03:21 07:32 Temperature 97.5 F 97.7 F Pulse Rate 49 48 Respiratory 16 16 Rate Blood Pressure 117/52 121/51 (mmHg) O2 Sat by Pulse 96 94 Oximetry Oxygen Devices in Use Now: None Appearance: Male patient, lying in bed, NAD Eyes: No Scleral Icterus Ears/Nose/Mouth/Throat: Clear Oropharnyx, Mucous Membranes Moist Neck: NL Appearance and Movements; NL JVP Respiratory: Symmetrical Chest Expansion and Respiratory Effort, Clear to Auscultation Cardiovascular: NL Sounds; No Murmurs; No JVD, RRR Abdominal: - - abd soft, tenderness to RLQ with palpation, BS present Extremities: No Edema Neurological: Alert and Oriented x 3, NL Muscle Strength and Tone Lines/Tubes/Other Access: Clean, Dry and Intact Peripheral IV Result Diagrams: 02/18/17 05:39 02/18/17 05:39 Additional Lab and Data: Lab Results 02/17/17 02/17/17 02/17/17 Range/Units 18:10 18:10 18:10 WBC 13.4 H (3.5-10.8) 10^3/ul RBC 4.42 (4.0-5.4) 10^6/ul Hgb 13.1 L (14.0-18.0) g/dl Hct 40 L (42-52) % MCV 90 (80-94) fL MCH 30 (27-31) pg MCHC 33 (31-36) g/dl RDW 13 (10.5-15) % Plt Count 362 (150-450) 10^3/ul MPV 8 (7.4-10.4) um3 Neut % (Auto) 84.9 H (38-83) % Lymph % (Auto) 8.9 L (25-47) % [place] % (Auto) 4.9 (1-9) % Eos % (Auto) 0.4 (0-6) % Baso % (Auto) 0.9 (0-2) % Absolute Neuts (auto) 11.3 H (1.5-7.7) 10^3/ul Absolute Lymphs (auto) 1.2 (1.0-4.8) 10^3/ul Absolute Monos (auto) 0.7 (0-0.8) 10^3/ul Absolute Eos (auto) 0.1 (0-0.6) 10^3/ul Absolute Basos (auto) 0.1 (0-0.2) 10^3/ul Absolute Nucleated RBC 0 10^3/ul Nucleated RBC % 0 INR (Anticoag Therapy) (0.89-1.11) Sodium 136 (133-145) mmol/L Potassium 4.6 (3.5-5.0) mmol/L Chloride 104 (101-111) mmol/L Carbon Dioxide 25 (22-32) mmol/L Anion Gap 7 (2-11) mmol/L BUN 18 (6-24) mg/dL Creatinine 1.16 (0.67-1.17) mg/dL Est GFR ( Amer) 79.6 (>60) Est GFR (Non-Af Amer) 61.9 (>60) BUN/Creatinine Ratio 15.5 (8-20) Glucose 92 (70-100) mg/dL Lactic Acid 0.8 (0.5-2.0) mmol/L Calcium 9.2 (8.6-10.3) mg/dL Total Bilirubin 0.30 (0.2-1.0) mg/dL AST 16 (13-39) U/L ALT 24 (7-52) U/L Alkaline Phosphatase 94 (34-104) U/L C-Reactive Protein 21.34 H (< 5.00) mg/L Total Protein 7.5 (6.4-8.9) g/dL Albumin 3.6 (3.2-5.2) g/dL Globulin 3.9 (2-4) g/dL Albumin/Globulin Ratio 0.9 L (1-3) Amylase 41 (29-103) U/L Lipase 51 (11.0-82.0) U/L // Range/Units 18:10 WBC (3.5-10.8) 10^3/ul RBC (4.0-5.4) 10^6/ul Hgb (14.0-18.0) g/dl Hct (42-52) % MCV (80-94) fL MCH (27-31) pg MCHC (31-36) g/dl RDW (10.5-15) % Plt Count (150-450) 10^3/ul MPV (7.4-10.4) um3 Neut % (Auto) (38-83) % Lymph % (Auto) (25-47) % [place] % (Auto) (1-9) % Eos % (Auto) (0-6) % Baso % (Auto) (0-2) % Absolute Neuts (auto) (1.5-7.7) 10^3/ul Absolute Lymphs (auto) (1.0-4.8) 10^3/ul Absolute Monos (auto) (0-0.8) 10^3/ul Absolute Eos (auto) (0-0.6) 10^3/ul Absolute Basos (auto) (0-0.2) 10^3/ul Absolute Nucleated RBC 10^3/ul Nucleated RBC % INR (Anticoag Therapy) 3.13 H (0.89-1.11) Sodium (133-145) mmol/L Potassium (3.5-5.0) mmol/L Chloride (101-111) mmol/L Carbon Dioxide (22-32) mmol/L Anion Gap (2-11) mmol/L BUN (6-24) mg/dL Creatinine (0.67-1.17) mg/dL Est GFR ( Amer) (>60) Est GFR (Non-Af Amer) (>60) BUN/Creatinine Ratio (8-20) Glucose (70-100) mg/dL Lactic Acid (0.5-2.0) mmol/L Calcium (8.6-10.3) mg/dL Total Bilirubin (0.2-1.0) mg/dL AST (13-39) U/L ALT (7-52) U/L Alkaline Phosphatase (34-104) U/L C-Reactive Protein (< 5.00) mg/L Total Protein (6.4-8.9) g/dL Albumin (3.2-5.2) g/dL Globulin (2-4) g/dL Albumin/Globulin Ratio (1-3) Amylase (29-103) U/L Lipase (11.0-82.0) U/L Diagnostic Imaging: CT ABD/PELVIS: INDICATION: RIGHT lower quadrant pain. Question appendicitis, although pathology , colitis. History of systemic melanoma. COMPARISON: August 04, 2008 PET/CT TECHNIQUE: Multidetector CT images were obtained from the lung bases to the ischial tuberosities with 91 mL Visipaque 320 IV and oral contrast. Multiplanar reformation. REPORT: Minimal dependent basilar atelectasis. Coronary artery calcifications. Unremarkable liver, gallbladder, pancreas, and spleen aside from a few punctate calcified splenic granulomas. Negative for CT abnormality of the upper GI or small bowel. Inflamed retrocecal appendix measuring up to 8 mm diameter and remarkable for a few small appendicoliths at the distal segment. Mild periappendiceal inflammatory change. No periappendiceal abscess evident. Mild colonic diverticulosis without findings of diverticulitis. Trace free fluid at the RIGHT lower quadrant. Negative for free air. Negative for hernias. Unremarkable adrenal glands. Mildly atrophic kidneys with small cortical cysts. No suspicious focal renal lesions or hydronephrosis. Symmetric nephrograms and pyelograms. Unremarkable ureters and urinary bladder. Symmetric seminal vesicles. Negative for lymphadenopathy. Moderately severe atherosclerotic plaque of the abdominal aorta and iliac arteries without aneurysm. Partial physiologic distention of the IVC. Negative for suspicious focal osseous lesions. IMPRESSION: 1. Acute appendicitis without evidence for periappendiceal abscess. 2. No suspicious focal visceral lesions or lymphadenopathy. Assess/Plan/Problems-Billing Assessment: Mr. Ji Guidry is a 72 yo male with a PMH of recent disseminated lyme disease, PAF, melanoma, CAD, HTN, HLD, depression, PE and NE who presented to the hospital 02/17/17 with concern for abd pain, nausea, fever that is secondary to acute appendicitis. - Patient Problems (1) Acute appendicitis Code(s): K35.80 - UNSPECIFIED ACUTE APPENDICITIS Comment: No evidence of rupture or peritonitis Management per surgery Continue Zosyn and supportive care Cardiology consult requested, as patient recently diagnosed with PAF and was noted to have elevated troponins last admission (previous hx of CAD and NE). Patient was due for stress test this week. (2) Paroxysmal atrial fibrillation Code(s): I48.0 - PAROXYSMAL ATRIAL FIBRILLATION Comment: Currently in sinus rhythm Continue metoprolol succinate Warfarin on hold in anticipation of potential surgery (3) HTN (hypertension) Code(s): I10 - ESSENTIAL (PRIMARY) HYPERTENSION Comment: Normotensive Continue amlodipine, metoprolol (4) HLD (hyperlipidemia) Code(s): E78.5 - HYPERLIPIDEMIA, UNSPECIFIED Comment: Continue statin once patient is taking PO. (5) CAD (coronary artery disease) Code(s): I25.10 - ATHSCL HEART DISEASE OF [place] CORONARY ARTERY W/O ANG PCTRS Comment: Continue metoprolol Resume statin when taking PO (6) Depression Code(s): F32.9 - MAJOR DEPRESSIVE DISORDER, SINGLE EPISODE, UNSPECIFIED Comment: Continue sertraline and bupropion. (7) Disseminated Lyme disease Code(s): A69.20 - LYME DISEASE, UNSPECIFIED Comment: Patient has completed course of amoxicillin as of 02/17/17 Continue outpatient follow-up as directed (8) History of melanoma Code(s): Z85.820 - PERSONAL HISTORY OF MALIGNANT MELANOMA OF SKIN (9) DVT prophylaxis Comment: On warfarin, which is on hold in anticipation of potential surgery INR currently therapeutic SCDs (10) Full code status Code(s): Z78.9 - OTHER SPECIFIED HEALTH STATUS Status and Disposition: Inpatient admission. Anticipate LOS >2 days for antibiotic therapy and potential surgery.
--- NOTE | 2017-02-18 08:54 | CONSULT ---
Subjective Date of Service: 02/18/17 Interval History: Date of consult 02/18/2017 Manager Aviation: Dr. Mike Funes PMD: Dr. Ly Service: Surgery Provider: Radha Raymond MD CC: Abdomen pain Reason for consult: Preoperative cardiac risk stratification HISTORY OF PRESENT ILLNESS: Mr. Ji Guidry is a 71- year-old man patient who with a history as below who had a recent admission earlier this month with symptomatic early disseminated lyme's. He was found with with intermittent rapid atrial fibrillation was given IV digoxin and amiodarone and ultimately converted and maintained sinus rhtyhm.. He was found with a mildly elevated troponin level. He had an echocardiogram on 02/01/2017 that showed showed him to have an overall left ventricular systolic function 50% to 55%, inferoposterior wall hypokinesis , mild to moderate mitral insufficiency, mild to moderate aortic insufficiency, and mild to moderate aortic stenosis. His troponin I level was as high as 0.13. He had no complaints of chest discomfort. He had no complains of He was discharged on 02/05/2017. He was noted to have recurrent asymptomatic atrial fibrillation after discharge. He was seen by Dr. Raymond inpatient and there was consideration of a cardiac catheterization. He was seen by his regular wastewater treatment engineer, Dr. Funes on 02/10/2017 and a chemical nuclear stress test was ordered to have this 02/23/2017. He has been on coumadin. Since prior discharge has continued to felt fatigued but denies any CP, dyspnea, or syncope. He has not been very active but has worked in the garden some. He does have some intermittent palpitations that may be related to Pafib. PAST MEDICAL HISTORY: melanoma Hx of [place] 2000 s/p PCI to distal RCA and PDA. Patient had NSVT after this with negative EPS hypertension hyperlipidemia, depression, hx PE pulmonary embolism. PAST SURGICAL HISTORY: cardiac catheterization in the past carpal tunnel surgery multiple right foot surgeries secondary to his melanomas. ALLERGIES: No known drug allergies. FAMILY HISTORY: No family history of premature coronary artery disease. SOCIAL HISTORY: He smoked 1 pack per day in the past. He has no history of drinking, no history of illicit drug use. Medications Active Medications: Acetaminophen (Tylenol Tab*) 650 mg PO Q6H PRN PRN Reason: FEVER Amlodipine Besylate (Norvasc Tab*) 5 mg PO DAILY [facility] Last Admin: 02/18/17 08:21 Dose: 5 mg Atorvastatin Calcium (Lipitor*) 10 mg PO DAILY [facility] Last Admin: 02/18/17 08:21 Dose: 10 mg Bupropion HCl (Wellbutrin Sr Tab*) 200 mg PO BID [facility] Last Admin: 02/18/17 08:20 Dose: 200 mg Fluticasone Propionate (Flonase Nasal [place] 50mcg*) 2 spray BOTH NARES BEDTIME [facility] Sodium Chloride (Ns 0.9% 1000 Ml*) 1,000 mls @ 125 mls/hr IV PER RATE [facility] Last Admin: 02/18/17 08:25 Dose: 125 mls/hr Piperacillin Sod/Tazobactam (Sod 3.375 gm/ Sodium Chloride) 100 mls @ 25 mls/ hr IVPB Q8H [facility] Last Admin: 02/18/17 06:07 Dose: 25 mls/hr Metoprolol Succinate (Toprol Xl Tab*) 50 mg PO DAILY [facility] Last Admin: 02/18/17 08:21 Dose: Not Given Morphine Sulfate (Morphine Inj (Syringe)*) 2 mg IV Q2H PRN PRN Reason: PAIN Omeprazole (Prilosec Cap*) 20 mg PO BID [facility] Last Admin: 02/18/17 08:21 Dose: 20 mg Ondansetron HCl (Zofran Inj*) 4 mg IV Q6H PRN PRN Reason: NAUSEA Sertraline HCl (Zoloft*) 50 mg PO DAILY [facility] Last Admin: 02/18/17 08:21 Dose: 50 mg Home Medications: Flunisolide NASAL (NF) [Nasalide NASAL (NF)] 2 spray BOTH NARES BEDTIME [History Confirmed 02/17/17] Metoprolol Succinate XL TAB* [Toprol XL TAB*] 50 mg PO DAILY 02/01/17 [History Confirmed 02/17/17] Omeprazole CAP* [Prilosec CAP* 20 MG] 20 mg PO BID 02/01/17 [History Confirmed 02/17/17] Sertraline* [Zoloft*] 50 mg PO DAILY 02/01/17 [History Confirmed 02/17/17] Simvastatin TAB(NF) [Zocor 20 MG (NF)] 20 mg PO DAILY 02/01/17 [History Confirmed 02/17/17] amLODIPine TAB* [Norvasc 5 mg TAB*] 5 mg PO DAILY 02/01/17 [History Confirmed ] buPROPion SR TAB* [Wellbutrin SR TAB*] 200 mg PO BID 02/01/17 [History Confirmed 02/17/17] Acetaminophen TAB* [Tylenol TAB*] 650 mg PO Q4H PRN #0 tab 02/05/17 [Rx Confirmed 02/17/17] Warfarin TAB(*) [Coumadin TAB(*)] 5 mg PO DAILY #30 tab 02/05/17 [Rx Confirmed 02/17/17] Review of Systems - Measurements Intake and Output: Intake and Output Last 24 Hours 02/16/17 02/17/17 02/18/17 02/19/17 06:59 06:59 06:59 06:59 Intake Total 0 Output Total 850 Balance -850 Weight 162 lb Intake: Oral 0 Output: Urine 850 - Review of Systems Constitutional Symptoms: Positive: Weakness, Fatigue Dermatology: Positive: Rash Negative: Cancer HEENT: Negative: Change in Hearing, Vertigo Eyes: Negative: Change in Vision, Double Vision Thyroid: Negative: Heat Intolerance, Sweatiness, Tremor, Frequent Defecation, Constipation, Palpitations, Primary Hypothyroidism, Primary Hyperthyroidism, Weight Loss, Weight Gain Pulmonary: Negative: Cough, Sputum, Hemoptysis, Wheezing, Respiratory Distress, Shortness of Breath, COPD Cardiology: Positive: Palpitations Negative: Chest Pain, Shortness of Breath, Swelling of Ankles, Peripheral Vascular Dis, Edema, Syncope, Claudication, Paroxysmal Nocturnal Dyspnea, Orthopnea Gastroenterology: Positive: Abdominal Pain, Nausea Negative: Indigestion, Difficulty Swallowing, Heartburn, Constipation, Diarrhea, Haematemesis, Melena Genital - Urinary: Negative: Dysuria Musculoskeletal: Negative: Joint Pain, Joint Stiffness, Osteoporosis Endocrinology: Negative: Obesity, Diabetes, Hyperglycemia, Hypoglycemia Hematologic/Lymphatic: Positive: Use of Anticoagulant Negative: Easy Brusing, Use of Antiplatelet Drugs Neurology: Negative: Headaches, Migraines, Change in Balancing, Change in Coordination, Change in Memory, Change in Speech, Change in Sphincter Function, Hx of Stroke\ TIA, Hx Seizures Psychiatry: Positive: Depression Negative: Sexual Dysfunction, Weight Change, Guilt Feelings, Tearfulness, Unusual Fatigue Allergic/Immunologic: Negative: Hx Anaphylaxis, Hx Angioedema, Hx HIV, Immunocompromise Review of Systems Statement: All other review of systems negative, unless stated above. Objective Vital Signs: Temp Pulse Resp BP Pulse Ox 97.7 F 48 16 121/51 94 02/18/17 07:32 02/18/17 07:32 02/18/17 07:32 02/18/17 07:32 02/18/17 07:32 Oxygen Devices in Use Now: None Appearance: nad, pleasant Neck: NL Appearance and Movements; NL JVP, Trachea Midline Respiratory: Symmetrical Chest Expansion and Respiratory Effort, Clear to Auscultation Cardiovascular: RRR, No Edema, - - 2/6 systolic murmur across precordium normal heart sounds Abdominal: - - soft, no rigidity Extremities: No Edema Skin: No Rash or Ulcers Neurological: Alert and Oriented x 3 Laboratory Results: 02/18/17 05:39 02/18/17 05:39 INR (Anticoag Therapy) 2.60 (0.89-1.11) H 02/18/17 05:39 Total Bilirubin 0.30 mg/dL (0.2-1.0) 02/17/17 18:10 AST 16 U/L (13-39) 02/17/17 18:10 ALT 24 U/L (7-52) 02/17/17 18:10 Alkaline Phosphatase 94 U/L (34-104) 02/17/17 18:10 Total Protein 7.5 g/dL (6.4-8.9) 02/17/17 18:10 Albumin 3.6 g/dL (3.2-5.2) 02/17/17 18:10 Globulin 3.9 g/dL (2-4) 02/17/17 18:10 Albumin/Globulin Ratio 0.9 (1-3) L 02/17/17 18:10 labs 10/2013: Tchol 195, tri 410, hdl 36, ldl 77 Diagnostic Imagin12/1999 (Enzyme + ACS): PCI to distal RCA and PDA, 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 LM no stenosis, LAD mild non-obstructive disease, mild non-obstructive OM disease, patent stents in RCA with mild disease in proximal RCA EKG Data: EKG 02/18/2017: sinus bradycardia, IVCD (grossly unchanged from EKG 06/2003) Assessment/Plan Mr. Slaughter is a 72 year old man with a history as above including but not limited to prior tobacco use, [place] 1999 s/p PCI to distal RCA/PDA, follow up angiogram 2002 no residual obstructive disease, paroxysmal AFib on coumadin who had a very small type 2 supply/demand related non plaque disruption [place] about 2 weeks ago in the setting of disseminated lyme disease and rapid atrial fibrillation, LVEF was normal. Patient has no recent history of a type 1 [place], decompensated HF, severe valve disease or malignant arrhythmia. Uncertain true functional capacity confounded by recent lyme's related fatigue. Admitted with acute appendicitis rapidly improving on antibiotics. - I discussed with Dr. Fry and Dr. Michel. Given rapid improvement with IV antibiotics, plan will be to keep scheduled stress test 02/23/2017 and if this is low risk then have patient come back electively in several weeks to perform surgery. - Would resume patients anticoagulation when ok from a surgery standpoint. I do not think he would benefit from aspirin in addition to the anticoagulation - Continue beta-ena - Continue statin, will check a lipid panel and adjust as needed Thank you for allowing me to participate in the cardiovascular care of this patient. Please do not hesitate to contact me with questions or concerns.
[2017-02-18] MEDS ORDERED: Atorvastatin* 10 MG TAB PO SCH ×2 (09:00→17:00)
--- NOTE | 2017-02-18 10:00 | HP ---
CC: Dr. Willy Ly; Dr. Mike Funes, Cardiology; Dr. Harvey Cash * HISTORY AND PHYSICAL: DATE OF ADMISSION: 02/17/17 CHIEF COMPLAINT: Right lower quadrant abdominal pain. HISTORY OF PRESENT ILLNESS: Mr. Dwight Workman is a pleasant 72-year-old gentleman who lives alone here in the [place] area. 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 Early Monday morning, he woke at the middle of the night with a generalized abdominal discomfort mainly around the umbilicus. This did not respond to Tums or some [id number] pain medicine that he had at home. He states he had a mild bit of nausea, but this has resolved and he has had excellent appetite since. He was seen at Dr. Cash's office early Monday morning for routine followup after treatment for lyme disease and was instructed that that if his pain should worsen or develop more in the right lower quadrant that he present to the emergency room. After going home for several hours, his pain became more localized in the right lower quadrant. He presented to the emergency room this evening. He is noted to be afebrile with stable vital signs in sinus rhythm. On exam, he was noted to have tenderness in the right lower quadrant without rebound, guarding, or local or generalized peritoneal irritation. Laboratory values included a white blood cell count of 13,000 with a hemoglobin of 13. INR was noted to be 3.13. The patient is on Coumadin. The electrolytes , BUN, and creatinine were all within normal limits. C-reactive protein was up to 21. Lactic acid was 0.8. In light of the abdominal discomfort, he under a CT scan of the abdomen and pelvis. I did review this study. This shows acute appendicitis, what appears to be a retrocecal appendix with a diameter of about 8 mm, mildly thickened wall , some periappendiceal inflammation. There are some appendicoliths noted in the more distal portion of the appendix. There is no abscess, extra luminal air , or significant fluid. The study was otherwise unremarkable. Of note, the patient was recently discharged from the [facility] [place] after he had been admitted and found to be dehydrated and went into a rapid atrial fibrillation requiring cardioversion with both Medicine and Cardiology consultations. He was started on Coumadin several days for this episode of atrial fibrillation with followup with Dr. Funes. He states that he was also to undergo an outpatient stress test as he has not seen his tax specialist. He states he has had no chest pain or shortness of breath over the past several weeks. He has actually been doing well. He has an excellent appetite. He has been eating without diarrhea. He also has a history of melanoma. This is being followed by Dr. Matute here. PAST MEDICAL HISTORY: 1. Lyme disease. 2. Coronary artery disease with coronary artery stenting. 3. History of metastatic melanoma. 4. Hypertension. 5. Hyperlipidemia. 6. History of depression. 7. Remote history of pulmonary embolism. PAST SURGICAL HISTORY: 1. Right foot surgeries, removal of melanoma. 2. Right groin sentinel node dissection. 3. Carpal tunnel. 4. Cardiac catheterization with stenting. MEDICATIONS: On admission include: 1. Nasalide 2 sprays both nostrils q.h.s. 2. Wellbutrin SR 200 mg p.o. b.i.d. 3. Omeprazole 20 mg b.i.d. 4. Simvastatin 20 mg daily. 5. Sertraline 50 mg daily. 6. Amlodipine 5 mg daily. 7. Metoprolol 50 mg daily which he takes at night. 8. Coumadin 5 mg daily which he also takes at night. 9. Amoxicillin is stopped just today by Dr. Cash. 10. Tylenol p.r.n. ALLERGIES: He has no known drug allergies. SOCIAL HISTORY: He lives alone. 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 He does not use tobacco or alcohol. REVIEW OF SYSTEMS: Cardiovascular: No chest pain, shortness of breath. Pulmonary: No wheezing or hemoptysis. GI: As per above. He was having diarrhea, but this was felt secondary to the antibiotics. These have been discontinued. He has had no further episodes. PHYSICAL EXAMINATION GENERAL: He is well-developed, well-nourished male who appears to be in no apparent distress. He is alert, conversant, and very pleasant. VITAL SIGNS: Temperature is 98, pulse 56 and regular, respirations 16, blood pressure 136/59. HEENT: His sclerae is anicteric. His oral mucosa is moist, is slightly dry. LUNGS: Clear to auscultation with normal respiratory effort. HEART: Regular rate and rhythm without murmurs, rubs, or gallops. ABDOMEN: Soft, nondistended with no prior surgical incisions. No hernias noted. He had diminished bowel sounds throughout. He has some tenderness in the right lower quadrant with some voluntary guarding, but no rebound or peritoneal irritation. He has a well healed right oblique groin incision without hernia descending down on the anterior thigh. He has a skin donor site from apparent skin graft in his anterior thigh. IMPRESSION: 1. Acute appendicitis. This appears to be retrocecal. No evidence of abscess , perforation, or extra luminal fluid. There are some appendicoliths within it , and has a maximum diameter of 8 mm. His history and presentation, as well as physical exam are all consistent with acute appendicitis. 2. Recent onset of atrial fibrillation requiring cardioversion, now on Coumadin. His INR is 3.1 and he took his last dose of coumadin last evening. 3. Recent Atrial fibrillation but he now appears to be sinus rhythm. He is on a beta-ena for this and has a followup stress test with Dr. Marin nicolas. 3. Hypertension. His blood pressure seems to be well controlled on his present regimen. PLAN: 1. The patient will be admitted to the surgical service this evening. 2. We will start him on intravenous IV Zosyn. 3. His Coumadin has been held and he received vitamin K. 4. INR will be repeated in the morning. We would like to see his INR down at least below 1.75 prior to any surgical intervention. 5. Medical consultation with our hospitalist for management of his atrial fibrillation, anticoagulation, hypertension, and medical evaluation for planned surgery. He fortunately does not require emergent surgery this evening, but I am also not convinced that he is a nonoperative candidate i.e. treating him with IV antibiotics in light of the fact that he does have some appendicoliths present, but once we can obtain a risk assessment for anesthesia and surgery, a decision can be made tomorrow regarding laparoscopic appendectomy or treating non-operatively with antibiotics. 6. We will keep him n.p.o. and start him on IV fluids. 7. Repeat labs and an INR will be repeated in the morning. [id number]/[facility] #: [id number] WOLF
--- NOTE | 2017-02-18 13:07 | CONS ---
CC: Dr. Maik Fry; Dr. Mike Funes; Dr. Harvey Cash; Dr. Willy Ly * CONSULTATION REPORT: DATE OF CONSULT: 02/17/17 REASON FOR CONSULT: Request preoperative evaluation. HISTORY OF PRESENT ILLNESS: Patient is a 72-year-old gentleman who presented to [facility] today with a chief complaint of abdominal pain. He states night, he woke up with cramping on the top of his stomach and it kept him up all night. He said the pain at its worse is 5/10 in severity. He actually had an appointment with Dr. Cash, infectious disease specialist that day, he was concerned. He noted that he could go home but if the pain started to go from the center of his belly, abdomen to his right side, he should go to the ER for further evaluation. Indeed, this is exactly what happened when he got home. He went to the ER, was evaluated and found to likely have acute appendicitis. The pain is constant. He denies any fevers or chills. He has no nausea or vomiting. He has no changes in his bowel movements. It should be noted that the patient was just admitted to the hospital, found to have disseminated Lyme as well as new onset atrial fibrillation and was started on Coumadin. The patient was scheduled to have an outpatient stress test earlier this week because of his recent cardiac complications. PAST MEDICAL HISTORY: Significant for again recent onset of new onset atrial fibrillation, early disseminated Lyme disease, hypertension, hyperlipidemia, coronary artery disease, melanoma, depression, pulmonary embolism, myocardial infarction. PAST SURGICAL HISTORY: Significant for multiple right foot surgeries for the melanoma, carpal tunnel, and cardiac catheterization. CURRENT MEDICATIONS: 1. Omeprazole 20 mg twice daily. 2. Metoprolol succinate 50 mg daily. 3. Flunisolide 2 sprays both nares at bedtime. 4. Tylenol 650 mg every 4 hours as needed. 5. Wellbutrin SR 200 mg twice daily. 6. Amlodipine 5 mg daily. 7. Coumadin 5 mg daily. 8. Simvastatin 20 mg daily. 9. Zoloft 50 mg daily. ALLERGIES: He has no known drug allergies. FAMILY HISTORY: Mother had heart disease and father had history of PE. SOCIAL HISTORY: Positive tobacco use. Smokes several cigarettes a day. No alcohol or recreational drug use. He does not currently have a surrogate decision maker. REVIEW OF SYSTEMS: A 14-point review of systems was completed with the patient. All pertinent positives and negatives are in the history of present illness, otherwise is negative. PHYSICAL EXAM: A pleasant gentleman, lying in bed, uncomfortable, not in acute distress. Vital Signs: Temperature 98.3 degrees, heart rate 60 beats per minute, respiratory rate 18 breaths per minute, pulse ox 96% on room air, blood pressure 137/67. HEENT: Normocephalic, atraumatic. Pupils equal, round and reactive to light. Moist mucous membranes. Neck: Supple. No JVD, bruits, palpable thyroid, or lymphadenopathy. Chest: Clear to auscultation and percussion bilaterally. Cardiovascular Exam: S1, S2 appreciated. Regular rate and rhythm. Abdominal Exam: Positive bowel sounds in all 4 quadrants. It is soft, it is exquisitely tender in the right lower quadrant. No rebound, guarding, or rigidity. Extremities: No cyanosis, clubbing, or edema. +2 peripheral pulses bilaterally. Neuro: Alert and oriented x3. Moves all extremities. Skin: No rashes or abnormalities. DIAGNOSTIC STUDIES/LAB DATA: White count 13.4, hemoglobin 13.1, hematocrit 40, platelets are 362. Sodium is 136, potassium 4.6, chloride 104, CO2 25, BUN 18, creatinine 1.16, glucose is 92. INR 3.13. Urinalysis is unremarkable. Abdominal and pelvic CT shows acute appendicitis without evidence for appendiceal abscess. No suspicious focal visceral lesion. ASSESSMENT AND PLAN/RECOMMENDATIONS: 1. Atrial Fibrillation: We will get EKG obviously at this time. His RCRI index is 1, risk factor which has 1% rate of cardiac . Based on this, he is a fairly low risk. However, with his recent issues and the fact he was supposed to have a stress test earlier this week, I am somewhat concerned and would ordinarily order a stress test at this point, but we do not do stress tests on the weekend. Therefore, I think the cardiac evaluation today would be appropriate to see whether or not it warrants cardiac team to do a stress test. Furthermore, we will reverse his coagulopathy from his Coumadin with 10 mg p.o. vitamin K. He should have FFP ready at surgery if necessary and INR should be checked in the morning. 2. Hypertension, adequately controlled. I will continue his current regimen. 3. Gastroesophageal reflux disease, stable. I will continue PPI. 4. Depression, stable. I would recommend continuing his Zoloft and Wellbutrin. 5. DVT prophylaxis. Encourage ambulation and heparin as soon as possible after surgery. Thank you very much for this consult. We look forward to following the patient with you with interest. [id number]/[facility] #: [id number] MTDD
[2017-02-18] MEDS: Fluticasone NASAL SPRAY 50MCG* 16 gm SPRAY BTL BOTH NARES SCH (21:23)
[2017-02-19] MEDS: NS 0.9% 1000 ML* 1,000 ML IV SCH ×4 (00:23→21:54)
[2017-02-19 08:05] LABS: Hematocrit 37 % (42-52); Hemoglobin 12.1 g/dl (14.0-18.0); Mean Corpuscular HGB Conc 33 g/dl (31-36); Mean Corpuscular Hemoglobin 30 pg (27-31); Mean Corpuscular Volume 91 fL (80-94); Mean Platelet Volume 8 um3 (7.4-10.4); Red Blood Count 4.05 10^6/ul (4.0-5.4); Red Cell Distribution Width 13 % (10.5-15); White Blood Count 6.5 10^3/ul (3.5-10.8)
[2017-02-19 08:17] LABS: C Reactive Protein 34.58 mg/L (< 5.00); HDL Cholesterol 30.8 mg/dL
[2017-02-19] MEDS: Omeprazole CAP* 20 MG PO SCH ×2 (08:50→20:19)
[2017-02-19] MEDS: buPROPion SR TAB.SR* 200 MG PO SCH ×2 (08:50→20:19)
[2017-02-19] MEDS: Sertraline* 50 MG TAB PO SCH (08:50)
[2017-02-19] MEDS: amLODIPine TAB* 5 MG PO SCH (08:50)
[2017-02-19] MEDS: Metoprolol Succinate XL TAB* 50 MG PO SCH ×2 (10:27→20:18)
--- NOTE | 2017-02-19 11:01 | PN ---
Subjective Date of Service: 02/19/17 Interval History: Patient seen and examined at bedside. He reports feeling well, denying fever/chills, CP, SOB. Abd pain is improved, however, he does report consistent RLQ pain when he eats clear liquids. Patient is concerned he can't eat food yet without pain and is concerned for recurrence of diarrhea. Family History: Unchanged from Admission Social History: Unchanged from Admission Past Medical History: Unchanged from Admission Objective Active Medications: Acetaminophen (Tylenol Tab*) 650 mg PO Q6H PRN PRN Reason: FEVER Amlodipine Besylate (Norvasc Tab*) 5 mg PO DAILY [facility] Last Admin: 02/19/17 08:50 Dose: 5 mg Atorvastatin Calcium (Lipitor*) 10 mg PO 2100 [facility] Bupropion HCl (Wellbutrin Sr Tab*) 200 mg PO BID [facility] Last Admin: 02/19/17 08:50 Dose: 200 mg Fluticasone Propionate (Flonase Nasal [place] 50mcg*) 2 spray BOTH NARES BEDTIME [facility] Last Admin: 02/18/17 21:23 Dose: 2 spray Sodium Chloride (Ns 0.9% 1000 Ml*) 1,000 mls @ 125 mls/hr IV PER RATE [facility] Last Admin: 02/19/17 08:30 Dose: 125 mls/hr Piperacillin Sod/Tazobactam (Sod 3.375 gm/ Sodium Chloride) 100 mls @ 25 mls/ hr IVPB Q8H [facility] Last Admin: 02/19/17 06:15 Dose: 25 mls/hr Metoprolol Succinate (Toprol Xl Tab*) 50 mg PO 2100 [facility] Morphine Sulfate (Morphine Inj (Syringe)*) 2 mg IV Q2H PRN PRN Reason: PAIN Omeprazole (Prilosec Cap*) 20 mg PO BID [facility] Last Admin: 02/19/17 08:50 Dose: 20 mg Ondansetron HCl (Zofran Inj*) 4 mg IV Q6H PRN PRN Reason: NAUSEA Sertraline HCl (Zoloft*) 50 mg PO DAILY [facility] Last Admin: 02/19/17 08:50 Dose: 50 mg Oxygen Devices in Use Now: None Appearance: Male patient, lying in bed, NAD Eyes: No Scleral Icterus Ears/Nose/Mouth/Throat: Clear Oropharnyx, Mucous Membranes Moist Neck: NL Appearance and Movements; NL JVP Respiratory: Symmetrical Chest Expansion and Respiratory Effort, Clear to Auscultation Cardiovascular: RRR - soft systolic murmur Abdominal: NL Sounds; No Tenderness; No Distention Extremities: No Edema Neurological: Alert and Oriented x 3, NL Muscle Strength and Tone Lines/Tubes/Other Access: Clean, Dry and Intact Peripheral IV Result Diagrams: 02/19/17 07:41 02/18/17 05:39 Additional Lab and Data: Lab Results 02/17/17 02/17/17 02/17/17 Range/Units 18:10 18:10 18:10 WBC 13.4 H (3.5-10.8) 10^3/ul RBC 4.42 (4.0-5.4) 10^6/ul Hgb 13.1 L (14.0-18.0) g/dl Hct 40 L (42-52) % MCV 90 (80-94) fL MCH 30 (27-31) pg MCHC 33 (31-36) g/dl RDW 13 (10.5-15) % Plt Count 362 (150-450) 10^3/ul MPV 8 (7.4-10.4) um3 Neut % (Auto) 84.9 H (38-83) % Lymph % (Auto) 8.9 L (25-47) % Real % (Auto) 4.9 (1-9) % Eos % (Auto) 0.4 (0-6) % Baso % (Auto) 0.9 (0-2) % Absolute Neuts (auto) 11.3 H (1.5-7.7) 10^3/ul Absolute Lymphs (auto) 1.2 (1.0-4.8) 10^3/ul Absolute Monos (auto) 0.7 (0-0.8) 10^3/ul Absolute Eos (auto) 0.1 (0-0.6) 10^3/ul Absolute Basos (auto) 0.1 (0-0.2) 10^3/ul Absolute Nucleated RBC 0 10^3/ul Nucleated RBC % 0 INR (Anticoag Therapy) (0.89-1.11) Sodium 136 (133-145) mmol/L Potassium 4.6 (3.5-5.0) mmol/L Chloride 104 (101-111) mmol/L Carbon Dioxide 25 (22-32) mmol/L Anion Gap 7 (2-11) mmol/L BUN 18 (6-24) mg/dL Creatinine 1.16 (0.67-1.17) mg/dL Est GFR ( Amer) 79.6 (>60) Est GFR (Non-Af Amer) 61.9 (>60) BUN/Creatinine Ratio 15.5 (8-20) Glucose 92 (70-100) mg/dL Lactic Acid 0.8 (0.5-2.0) mmol/L Calcium 9.2 (8.6-10.3) mg/dL Total Bilirubin 0.30 (0.2-1.0) mg/dL AST 16 (13-39) U/L ALT 24 (7-52) U/L Alkaline Phosphatase 94 (34-104) U/L C-Reactive Protein 21.34 H (< 5.00) mg/L Total Protein 7.5 (6.4-8.9) g/dL Albumin 3.6 (3.2-5.2) g/dL Globulin 3.9 (2-4) g/dL Albumin/Globulin Ratio 0.9 L (1-3) Amylase 41 (29-103) U/L Lipase 51 (11.0-82.0) U/L // Range/Units 18:10 WBC (3.5-10.8) 10^3/ul RBC (4.0-5.4) 10^6/ul Hgb (14.0-18.0) g/dl Hct (42-52) % MCV (80-94) fL MCH (27-31) pg MCHC (31-36) g/dl RDW (10.5-15) % Plt Count (150-450) 10^3/ul MPV (7.4-10.4) um3 Neut % (Auto) (38-83) % Lymph % (Auto) (25-47) % Real % (Auto) (1-9) % Eos % (Auto) (0-6) % Baso % (Auto) (0-2) % Absolute Neuts (auto) (1.5-7.7) 10^3/ul Absolute Lymphs (auto) (1.0-4.8) 10^3/ul Absolute Monos (auto) (0-0.8) 10^3/ul Absolute Eos (auto) (0-0.6) 10^3/ul Absolute Basos (auto) (0-0.2) 10^3/ul Absolute Nucleated RBC 10^3/ul Nucleated RBC % INR (Anticoag Therapy) 3.13 H (0.89-1.11) Sodium (133-145) mmol/L Potassium (3.5-5.0) mmol/L Chloride (101-111) mmol/L Carbon Dioxide (22-32) mmol/L Anion Gap (2-11) mmol/L BUN (6-24) mg/dL Creatinine (0.67-1.17) mg/dL Est GFR ( Amer) (>60) Est GFR (Non-Af Amer) (>60) BUN/Creatinine Ratio (8-20) Glucose (70-100) mg/dL Lactic Acid (0.5-2.0) mmol/L Calcium (8.6-10.3) mg/dL Total Bilirubin (0.2-1.0) mg/dL AST (13-39) U/L ALT (7-52) U/L Alkaline Phosphatase (34-104) U/L C-Reactive Protein (< 5.00) mg/L Total Protein (6.4-8.9) g/dL Albumin (3.2-5.2) g/dL Globulin (2-4) g/dL Albumin/Globulin Ratio (1-3) Amylase (29-103) U/L Lipase (11.0-82.0) U/L Diagnostic Imaging: CT ABD/PELVIS: INDICATION: RIGHT lower quadrant pain. Question appendicitis, although pathology , colitis. History of systemic melanoma. COMPARISON: August 04, 2008 PET/CT TECHNIQUE: Multidetector CT images were obtained from the lung bases to the ischial tuberosities with 91 mL Visipaque 320 IV and oral contrast. Multiplanar reformation. REPORT: Minimal dependent basilar atelectasis. Coronary artery calcifications. Unremarkable liver, gallbladder, pancreas, and spleen aside from a few punctate calcified splenic granulomas. Negative for CT abnormality of the upper GI or small bowel. Inflamed retrocecal appendix measuring up to 8 mm diameter and remarkable for a few small appendicoliths at the distal segment. Mild periappendiceal inflammatory change. No periappendiceal abscess evident. Mild colonic diverticulosis without findings of diverticulitis. Trace free fluid at the RIGHT lower quadrant. Negative for free air. Negative for hernias. Unremarkable adrenal glands. Mildly atrophic kidneys with small cortical cysts. No suspicious focal renal lesions or hydronephrosis. Symmetric nephrograms and pyelograms. Unremarkable ureters and urinary bladder. Symmetric seminal vesicles. Negative for lymphadenopathy. Moderately severe atherosclerotic plaque of the abdominal aorta and iliac arteries without aneurysm. Partial physiologic distention of the IVC. Negative for suspicious focal osseous lesions. IMPRESSION: 1. Acute appendicitis without evidence for periappendiceal abscess. 2. No suspicious focal visceral lesions or lymphadenopathy. Assess/Plan/Problems-Billing Assessment: Mr. Ji Guidry is a 72 yo male with a PMH of recent disseminated lyme disease, PAF, melanoma, CAD, HTN, HLD, depression, PE and VA who presented to the hospital 02/17/17 with concern for abd pain, nausea, fever that is secondary to acute appendicitis. - Patient Problems (1) Acute appendicitis Code(s): K35.80 - UNSPECIFIED ACUTE APPENDICITIS Comment: No evidence of rupture or peritonitis Management per surgery Continue Zosyn and supportive care Cardiology consult appreciated Stress test ordered tomorrow in the event patient does not improve (2) Paroxysmal atrial fibrillation Code(s): I48.0 - PAROXYSMAL ATRIAL FIBRILLATION Comment: Currently in sinus rhythm Continue metoprolol succinate Warfarin on hold in anticipation of potential surgery (3) HTN (hypertension) Code(s): I10 - ESSENTIAL (PRIMARY) HYPERTENSION Comment: Normotensive Continue amlodipine, metoprolol (4) HLD (hyperlipidemia) Code(s): E78.5 - HYPERLIPIDEMIA, UNSPECIFIED Comment: Continue statin Increase atorvastatin to 80 mg (5) CAD (coronary artery disease) Code(s): I25.10 - ATHSCL HEART DISEASE OF [place] CORONARY ARTERY W/O ANG PCTRS Comment: Continue metoprolol, statin Plan for stress test tomorrow (6) Depression Code(s): F32.9 - MAJOR DEPRESSIVE DISORDER, SINGLE EPISODE, UNSPECIFIED Comment: Continue sertraline and bupropion. (7) Disseminated Lyme disease Code(s): A69.20 - LYME DISEASE, UNSPECIFIED Comment: Patient has completed course of amoxicillin as of 02/17/17 Continue outpatient follow-up as directed (8) History of melanoma Code(s): Z85.820 - PERSONAL HISTORY OF MALIGNANT MELANOMA OF SKIN (9) DVT prophylaxis Comment: SQ heparin SCDs Warfarin on hold (10) Full code status Code(s): Z78.9 - OTHER SPECIFIED HEALTH STATUS Status and Disposition: Inpatient admission. Anticipate LOS >2 days for antibiotic therapy and potential surgery.
--- NOTE | 2017-02-19 11:39 | PN ---
Progress Note - Progress Note Date of Service: 02/18/17 SOAP: Subjective: This is an out of sequence note-this note documents discussion with patient on Monday02/18/17 at approximately 1010. I reviewed care with Dr. Francis from Cardiology this morning. The patient apparently had an ND 2 weeks ago along with the rapid atrial fibrillation. Dr. Francis would like to proceed with the cardiac stress test prior to surgery- please see his consultation. With the recent cardiac event and the fact that he is rapidly improving on IV antibiotics, I recommend that we continue non-operative management and avoid appendectomy at this time unless his condition would change and he requires appendectomy. If he continues to improve he could be discharged on oral antibiotics with office follow up. There is a chance that he could have a recurrent appendicitis and after his cardiac workup and risk assessment interval appendectomy could be performed at a later time that was felt to be acceptable to cardiology. I discussed this with the patient and he understands and agrees with the plan. I answered his questions as well. We can start liquids later today as long as he is improving. Will repeat WBC in the morning.
[2017-02-19] MEDS ORDERED: Atorvastatin* 80 MG TAB PO ONE (12:33)
--- NOTE | 2017-02-19 12:37 | PN ---
Subjective Date of Service: 02/19/17 Interval History: f/u pre-op evaluation no pain currently no cp or dyspnea loose stools after diarrhea Date of consult 02/18/2017 Consulting Services Manager: Dr. Mike Funes PMD: Dr. Ly Service: Surgery Provider: Radha Raymond MD CC: Abdomen pain Reason for consult: Preoperative cardiac risk stratification Medications Active Medications: Acetaminophen (Tylenol Tab*) 650 mg PO Q6H PRN PRN Reason: FEVER Amlodipine Besylate (Norvasc Tab*) [address] [facility] Last Admin: 02/19/17 08:50 Dose: 5 mg Atorvastatin Calcium (Lipitor*) 80 mg PO 2100 ONE Stop: 02/19/17 12:34 Bupropion HCl (Wellbutrin Sr Tab*) [address] [facility] Last Admin: 02/19/17 08:50 Dose: 200 mg Fluticasone Propionate (Flonase Nasal [place] 50mcg*) 2 [address] BEDTIME [facility] Last Admin: 02/18/17 21:23 Dose: 2 spray Sodium Chloride (Ns 0.9% 1000 Ml*) 1,000 mls @ 125 mls/hr IV PER RATE [facility] Last Admin: 02/19/17 08:30 Dose: 125 mls/hr Piperacillin Sod/Tazobactam (Sod 3.375 gm/ Sodium Chloride) 100 mls @ 25 mls/ hr IVPB Q8H [facility] Last Admin: 02/19/17 06:15 Dose: 25 mls/hr Metoprolol Succinate (Toprol Xl Tab*) [address] [facility] Morphine Sulfate (Morphine Inj (Syringe)*) 2 mg IV Q2H PRN PRN Reason: PAIN Omeprazole (Prilosec Cap*) [address] [facility] Last Admin: 02/19/17 08:50 Dose: 20 mg Ondansetron HCl (Zofran Inj*) 4 mg IV Q6H PRN PRN Reason: NAUSEA Sertraline HCl (Zoloft*) [address] [facility] Last Admin: 02/19/17 08:50 Dose: 50 mg Objective Vital Signs: Temp Pulse Resp BP Pulse Ox 97.9 F 52 16 128/62 99 02/19/17 11:27 02/19/17 11:27 02/19/17 11:27 02/19/17 11:27 02/19/17 11:27 Oxygen Devices in Use Now: None Appearance: nad, pleasant Neck: NL Appearance and Movements; NL JVP, Trachea Midline Respiratory: Symmetrical Chest Expansion and Respiratory Effort, Clear to Auscultation Cardiovascular: RRR, No Edema, - - 2/6 systolic murmur across precordium normal heart sounds Abdominal: - - soft, no rigidity Extremities: No Edema Skin: No Rash or Ulcers Neurological: Alert and Oriented x 3 Laboratory Results: INR (Anticoag Therapy) 1.48 (0.89-1.11) H 02/19/17 07:41 Total Bilirubin 0.30 mg/dL (0.2-1.0) 02/17/17 18:10 AST 16 U/L (13-39) 02/17/17 18:10 ALT 24 U/L (7-52) 02/17/17 18:10 Alkaline Phosphatase 94 U/L (34-104) 02/17/17 18:10 Total Protein 7.5 g/dL (6.4-8.9) 02/17/17 18:10 Albumin 3.6 g/dL (3.2-5.2) 02/17/17 18:10 Globulin 3.9 g/dL (2-4) 02/17/17 18:10 Albumin/Globulin Ratio 0.9 (1-3) L 02/17/17 18:10 Triglycerides 124 mg/dL 02/19/17 07:41 Cholesterol 165 mg/dL 02/19/17 07:41 LDL Cholesterol 109 mg/dL 02/19/17 07:41 HDL Cholesterol 30.8 mg/dL 02/19/17 07:41 Diagnostic Imagin12/1999 (Enzyme + ACS): PCI to distal RCA and PDA, [employer] of small OM3 Coronary angiogram 11/2002: (chest pain, inferior wall ischemia on stress test). LM no stenosis, LAD mild non-obstructive disease, mild non-obstructive OM disease, patent stents in RCA with mild disease in proximal RCA EKG Data: EKG 02/18/2017: sinus bradycardia, IVCD (grossly unchanged from EKG 06/2003) Assessment/Plan Mr. Slaughter is a 72 year old man with a history as above including but not limited to prior tobacco use, [place] 1999 s/p PCI to distal RCA/PDA, follow up angiogram 2002 no residual obstructive disease, paroxysmal AFib on coumadin who had a very small type 2 supply/demand related non plaque disruption LA about 2 weeks ago in the setting of disseminated lyme disease and rapid atrial fibrillation, LVEF was normal. Patient has no recent history of a type 1 LA, decompensated HF, severe valve disease or malignant arrhythmia. Uncertain true functional capacity confounded by recent lyme's related fatigue. Admitted with acute appendicitis improving on antibiotics. - If patient continues to improve on IV antibiotics, plan will be to keep scheduled stress test 02/23/2017 and if this is low risk then have patient come back electively in several weeks to perform surgery. - Would resume patients anticoagulation when ok from a surgery standpoint. I do not think he would benefit from aspirin in addition to the anticoagulation - Continue beta-ena - Continue statin, increase to atorvastatin 80 mg po daily and keep this dose - If no improvement and cannot be improved, would perform the stress test as an inpatient Thank you for allowing me to participate in the cardiovascular care of this patient. Please do not hesitate to contact me with questions or concerns.
[2017-02-19] MEDS: Lactobacillus Acidophilu (GG)* 1 CAP CAP PO SCH ×2 (14:46→20:19)
[2017-02-19] MEDS: Heparin VIAL(*) 5000 UNITS/ML VIAL (FIVE THOUSAND) SUBCUT SCH ×2 (15:36→21:54)
[2017-02-19] MEDS: Fluticasone NASAL SPRAY 50MCG* 16 gm SPRAY BTL BOTH NARES SCH ×2 (20:19→21:55)
[2017-02-19] MEDS: Atorvastatin* 80 MG TAB PO SCH (20:32)
[2017-02-19] MEDS ORDERED: Atorvastatin* 10 MG TAB PO SCH (21:00)
[2017-02-20] MEDS: Heparin VIAL(*) 5000 UNITS/ML VIAL (FIVE THOUSAND) SUBCUT SCH ×3 (05:55→22:19)
--- NOTE | 2017-02-20 09:17 | PN ---
Subjective Date of Service: 02/20/17 Interval History: Mr. Workman states that he is feeling better overall. He has no further right lower quadrant pain. He does have loose stool any time he eats or drinks. He denies chest pain, SOB, or nausea. Family History: Unchanged from Admission Social History: Unchanged from Admission Past Medical History: Unchanged from Admission Objective Active Medications: Acetaminophen (Tylenol Tab*) 650 mg PO Q6H PRN Amlodipine Besylate (Norvasc Tab*) 5 mg PO DAILY [facility] Atorvastatin Calcium (Lipitor*) 80 mg PO 1700 [facility] Bupropion HCl (Wellbutrin Sr Tab*) 200 mg PO BID [facility] Fluticasone Propionate (Flonase Nasal [place] 50mcg*) 2 spray BOTH NARES BEDTIME [facility] Heparin Sodium (Porcine) (Heparin Vial(*)) 5,000 units SUBCUT Q8HR [facility] Sodium Chloride (Ns 0.9% 1000 Ml*) 1,000 mls @ 125 mls/hr IV PER RATE [facility] Piperacillin Sod/Tazobactam (Sod 3.375 gm/ Sodium Chloride) 100 mls @ 25 mls/ hr IVPB Q8H [facility] Lactobacillus Rhamnosus (Culturelle*) 1 cap PO TID [facility] Metoprolol Succinate (Toprol Xl Tab*) 50 mg PO 2100 [facility] Morphine Sulfate (Morphine Inj (Syringe)*) 2 mg IV Q2H PRN Omeprazole (Prilosec Cap*) 20 mg PO BID [facility] Ondansetron HCl (Zofran Inj*) 4 mg IV Q6H PRN Sertraline HCl (Zoloft*) 50 mg PO DAILY [facility] Vital Signs 02/19/17 02/19/17 02/19/17 11:27 15:19 19:30 Temperature 97.9 F 98.1 F Pulse Rate 52 53 Respiratory 16 18 16 Rate Blood Pressure 128/62 145/61 (mmHg) O2 Sat by Pulse 99 99 Oximetry 02/19/17 02/19/17 02/19/17 20:01 21:54 23:01 Temperature 98.9 F 98.2 F Pulse Rate 63 57 58 Respiratory 18 18 Rate Blood Pressure 184/79 149/71 137/66 (mmHg) O2 Sat by Pulse 98 99 Oximetry 02/20/17 03:28 Temperature 97.7 F Pulse Rate 69 Respiratory 16 Rate Blood Pressure 169/73 (mmHg) O2 Sat by Pulse 97 Oximetry Oxygen Devices in Use Now: None Appearance: Male sitting up in chair in NAD Eyes: No Scleral Icterus Ears/Nose/Mouth/Throat: Mucous Membranes Moist Neck: Trachea Midline Respiratory: Symmetrical Chest Expansion and Respiratory Effort, Clear to Auscultation Cardiovascular: NL Sounds; No Murmurs; No JVD, No Edema Abdominal: NL Sounds; No Tenderness; No Distention Lymphatic: No Cervical Adenopathy Extremities: No Edema Skin: No Rash or Ulcers Neurological: Alert and Oriented x 3, NL Muscle Strength and Tone Nutrition: Taking PO's Result Diagrams: 02/19/17 07:41 02/18/17 05:39 Additional Lab and Data: Lab Results 02/17/17 02/17/17 02/17/17 Range/Units 18:10 18:10 18:10 WBC 13.4 H (3.5-10.8) 10^3/ul RBC 4.42 (4.0-5.4) 10^6/ul Hgb 13.1 L (14.0-18.0) g/dl Hct 40 L (42-52) % MCV 90 (80-94) fL MCH 30 (27-31) pg MCHC 33 (31-36) g/dl RDW 13 (10.5-15) % Plt Count 362 (150-450) 10^3/ul MPV 8 (7.4-10.4) um3 Neut % (Auto) 84.9 H (38-83) % Lymph % (Auto) 8.9 L (25-47) % [place] % (Auto) 4.9 (1-9) % Eos % (Auto) 0.4 (0-6) % Baso % (Auto) 0.9 (0-2) % Absolute Neuts (auto) 11.3 H (1.5-7.7) 10^3/ul Absolute Lymphs (auto) 1.2 (1.0-4.8) 10^3/ul Absolute Monos (auto) 0.7 (0-0.8) 10^3/ul Absolute Eos (auto) 0.1 (0-0.6) 10^3/ul Absolute Basos (auto) 0.1 (0-0.2) 10^3/ul Absolute Nucleated RBC 0 10^3/ul Nucleated RBC % 0 INR (Anticoag Therapy) (0.89-1.11) Sodium 136 (133-145) mmol/L Potassium 4.6 (3.5-5.0) mmol/L Chloride 104 (101-111) mmol/L Carbon Dioxide 25 (22-32) mmol/L Anion Gap 7 (2-11) mmol/L BUN 18 (6-24) mg/dL Creatinine 1.16 (0.67-1.17) mg/dL Est GFR ( Amer) 79.6 (>60) Est GFR (Non-Af Amer) 61.9 (>60) BUN/Creatinine Ratio 15.5 (8-20) Glucose 92 (70-100) mg/dL Lactic Acid 0.8 (0.5-2.0) mmol/L Calcium 9.2 (8.6-10.3) mg/dL Total Bilirubin 0.30 (0.2-1.0) mg/dL AST 16 (13-39) U/L ALT 24 (7-52) U/L Alkaline Phosphatase 94 (34-104) U/L C-Reactive Protein 21.34 H (< 5.00) mg/L Total Protein 7.5 (6.4-8.9) g/dL Albumin 3.6 (3.2-5.2) g/dL Globulin 3.9 (2-4) g/dL Albumin/Globulin Ratio 0.9 L (1-3) Amylase 41 (29-103) U/L Lipase 51 (11.0-82.0) U/L // Range/Units 18:10 WBC (3.5-10.8) 10^3/ul RBC (4.0-5.4) 10^6/ul Hgb (14.0-18.0) g/dl Hct (42-52) % MCV (80-94) fL MCH (27-31) pg MCHC (31-36) g/dl RDW (10.5-15) % Plt Count (150-450) 10^3/ul MPV (7.4-10.4) um3 Neut % (Auto) (38-83) % Lymph % (Auto) (25-47) % [place] % (Auto) (1-9) % Eos % (Auto) (0-6) % Baso % (Auto) (0-2) % Absolute Neuts (auto) (1.5-7.7) 10^3/ul Absolute Lymphs (auto) (1.0-4.8) 10^3/ul Absolute Monos (auto) (0-0.8) 10^3/ul Absolute Eos (auto) (0-0.6) 10^3/ul Absolute Basos (auto) (0-0.2) 10^3/ul Absolute Nucleated RBC 10^3/ul Nucleated RBC % INR (Anticoag Therapy) 3.13 H (0.89-1.11) Sodium (133-145) mmol/L Potassium (3.5-5.0) mmol/L Chloride (101-111) mmol/L Carbon Dioxide (22-32) mmol/L Anion Gap (2-11) mmol/L BUN (6-24) mg/dL Creatinine (0.67-1.17) mg/dL Est GFR ( Amer) (>60) Est GFR (Non-Af Amer) (>60) BUN/Creatinine Ratio (8-20) Glucose (70-100) mg/dL Lactic Acid (0.5-2.0) mmol/L Calcium (8.6-10.3) mg/dL Total Bilirubin (0.2-1.0) mg/dL AST (13-39) U/L ALT (7-52) U/L Alkaline Phosphatase (34-104) U/L C-Reactive Protein (< 5.00) mg/L Total Protein (6.4-8.9) g/dL Albumin (3.2-5.2) g/dL Globulin (2-4) g/dL Albumin/Globulin Ratio (1-3) Amylase (29-103) U/L Lipase (11.0-82.0) U/L Microbiology and Other Data: Microbiology 02/19/17 15:40 Stool Gross Appearance - Final Stool C. difficile DNA Amplification - Final 027 Presumptive NEGATIVE Toxigenic C.diff NEGATIVE Diagnostic Imaging: CT ABD/PELVIS: INDICATION: RIGHT lower quadrant pain. Question appendicitis, although pathology , colitis. History of systemic melanoma. COMPARISON: August 04, 2008 PET/CT TECHNIQUE: Multidetector CT images were obtained from the lung bases to the ischial tuberosities with 91 mL Visipaque 320 IV and oral contrast. Multiplanar reformation. REPORT: Minimal dependent basilar atelectasis. Coronary artery calcifications. Unremarkable liver, gallbladder, pancreas, and spleen aside from a few punctate calcified splenic granulomas. Negative for CT abnormality of the upper GI or small bowel. Inflamed retrocecal appendix measuring up to 8 mm diameter and remarkable for a few small appendicoliths at the distal segment. Mild periappendiceal inflammatory change. No periappendiceal abscess evident. Mild colonic diverticulosis without findings of diverticulitis. Trace free fluid at the RIGHT lower quadrant. Negative for free air. Negative for hernias. Unremarkable adrenal glands. Mildly atrophic kidneys with small cortical cysts. No suspicious focal renal lesions or hydronephrosis. Symmetric nephrograms and pyelograms. Unremarkable ureters and urinary bladder. Symmetric seminal vesicles. Negative for lymphadenopathy. Moderately severe atherosclerotic plaque of the abdominal aorta and iliac arteries without aneurysm. Partial physiologic distention of the IVC. Negative for suspicious focal osseous lesions. IMPRESSION: 1. Acute appendicitis without evidence for periappendiceal abscess. 2. No suspicious focal visceral lesions or lymphadenopathy. Assess/Plan/Problems-Billing Assessment: Mr. Ji Guidry is a 72 yo male with a PMH of recent early disseminated lyme disease, PAF, melanoma, CAD, HTN, HLD, depression, PE and AL who presented to the hospital 02/17/17 with concern for abd pain, nausea, fever that is secondary to acute appendicitis. - Patient Problems (1) Acute appendicitis Comment: - Afebrile, vitals stable, leukocytosis resolved. - Management per surgery. - Continue Zosyn and supportive care. - Cardiology consult appreciated. Stress test is low risk. No further cardiac testing indicated, patient can proceed to surgery at the discretion of Dr. Fry and his team. (2) Paroxysmal atrial fibrillation Comment: - Currently in sinus rhythm. - Continue metoprolol succinate. - Warfarin on hold in anticipation of potential surgery. (3) CAD (coronary artery disease) Comment: - Continue metoprolol, statin. - Stress test was low risk. (4) Depression Comment: - Continue sertraline and bupropion. (5) HLD (hyperlipidemia) Comment: - Continue atorvastatin. (6) HTN (hypertension) Comment: - Normotensive. - Continue amlodipine, metoprolol. (7) Disseminated Lyme disease Comment: - Patient has completed course of amoxicillin as of 02/17/17. Continue outpatient follow-up as needed per recommendations from Dr. Cash. (8) Full code status (9) DVT prophylaxis Comment: - SQ heparin and SCDs. Status and Disposition: Inpatient admission. Anticipate LOS >2 days for antibiotic therapy and potential surgery.
[2017-02-20] MEDS: Lactobacillus Acidophilu (GG)* 1 CAP CAP PO SCH ×3 (11:52→21:08)
[2017-02-20] MEDS: amLODIPine TAB* 5 MG PO SCH (11:52)
[2017-02-20] MEDS: Omeprazole CAP* 20 MG PO SCH ×2 (11:52→21:09)
[2017-02-20] MEDS: buPROPion SR TAB.SR* 200 MG PO SCH ×2 (11:53→21:08)
[2017-02-20] MEDS: Sertraline* 50 MG TAB PO SCH (11:53)
--- NOTE | 2017-02-20 12:00 | RAD ---
Edited for charges. INDICATION: Chest pain. COMPARISON: There are no prior studies available for comparison. Technique: A single day myocardial perfusion stress study was performed. Initially the resting study was performed. The patient was given an intravenous injection of 10.1 mCi of technetium 99m tetrofosmin and and the heart was imaged in multiple projections. The patient returned later in the day and under the direction of Dr. Lopez, the patient was given intervenous injection of Lexiscan. Subsequently the patient was given intravenous injection of 25.9 mCi of technetium 99m tetrofosmin and the heart was imaged in multiple projections. Images were reconstructed in the axial, sagittal and coronal planes and in a 3- D format. FINDINGS: The left ventricular ejection fraction is calculated to be 58%. There appears to be normal wall motion. Review of the images demonstrates decreased activity in the inferior wall on both the post pharmacologic stress and resting data sets which resolves on the attenuation corrected images most consistent with attenuation artifact. No other focal abnormalities are seen. IMPRESSION: NO EVIDENCE FOR INFARCT OR ISCHEMIA. ASSESSMENT: Low risk. Based on imaging criteria from ACC/AHA 2002 Guideline Update for the Management of Patients With Chronic Stable Angina Table 23. Noninvasive Risk Stratification. MTDD
[2017-02-20] MEDS ORDERED: Regadenoson* 0.4 MG/5 ML SYRINGE ONE (12:31)
--- NOTE | 2017-02-20 13:28 | PN ---
Progress Note - Progress Note Date of Service: 02/20/17 SOAP: Subjective: Patient seen and examined. Reports doing better today, minimal pain, more troubled with loose BMs after any PO intake. Had nuclear stress test earlier this AM Denies fever or chills Objective: VSS, afebrile Abdomen soft, non-distended. Mild RLQ tenderness, but no guarding, rigidity or rebound tenderness. Ext. without edema Stress test with no evidence of ischemia or infarct, EF at 58% Assessment: A 72 y/o male with acute appendicitis, being treated with Abx due to high risk CAD Plan: Keep on clear liquids for the time being Continue Abx Patient would like to proceed with surgery during his admission. I will discuss with Dr. Fry.
[2017-02-20] MEDS: Atorvastatin* 80 MG TAB PO SCH (16:49)
[2017-02-20] MEDS: NS 0.9% 1000 ML* 1,000 ML IV SCH (18:00)
--- NOTE | 2017-02-20 18:21 | PN ---
Progress Note - Progress Note Date of Service: 02/20/17 SOAP: Subjective: He is doing well- no pain and is hungry and tolerating liquids. He has a good appetite. Objective: Temp Pulse Resp BP Pulse Ox 97.9 F 55 16 147/63 100 02/20/17 15:24 02/20/17 15:24 02/20/17 15:24 02/20/17 15:24 02/20/17 15:24 PEX: Abdomen is soft and non-distended. There is no firmness or mass, there is no tenderness or guarding. Stress test results reviewed. Assessment: Acute appendicitis-responding to non-operative management with IV antibiotics. Normal WBC and no abdominal pain or fever Cardiac status stable Plan: He has responded to antibiotics and at this point 5 days into the process I would prefer to continue oral antibiotics and plan interval appendectomy in about 6 weeks. Operating now may be more challenging and with increased risk and slight increase chance of an open procedure. I discussed this with him and he is comfortable with this plan. Will advance his diet and re-start coumadin and plan d/c in the next 24 hours. Discussed with Santana Burgos and Dr. Magallanes from Cardiology.
[2017-02-20] MEDS: Warfarin TAB(*) 5 MG PO SCH (18:43)
[2017-02-20] MEDS: Metoprolol Succinate XL TAB* 50 MG PO SCH (21:09)
[2017-02-20] MEDS: Fluticasone NASAL SPRAY 50MCG* 16 gm SPRAY BTL BOTH NARES SCH (22:19)
[2017-02-21] MEDS: NS 0.9% 1000 ML* 1,000 ML IV SCH (01:35)
[2017-02-21] MEDS: Heparin VIAL(*) 5000 UNITS/ML VIAL (FIVE THOUSAND) SUBCUT SCH (06:21)
--- NOTE | 2017-02-21 08:12 | PN ---
Progress Note - Progress Note Date of Service: 02/21/17 SOAP: Subjective: Doing well -no abdominal pain. His stools are firming up-no diarrhea last night He is eating a regular diet Objective: Temp Pulse Resp BP Pulse Ox 97.5 F 55 16 148/63 98 02/21/17 03:18 02/21/17 03:18 02/21/17 03:18 02/21/17 03:18 02/21/17 03:18 PEX:Comfortable Lungs are clear Abdomen is soft and non-distended. Bowel sounds are present. There is no tenderness or mass in the right lower quadrant Assessment: Acute appendicitis-responded well to antibiotics AFIB- in sinus now Stress test low risk Plan: D/C home today on 10 days of oral Augmentin Coumadin re-started Follow up in office next week Plan interval appendectomy in 6 weeks All discussed with patient Discussed with Santana Burgos.
[2017-02-21] MEDS: Sertraline* 50 MG TAB PO SCH (09:01)
[2017-02-21] MEDS: Omeprazole CAP* 20 MG PO SCH (09:01)
[2017-02-21] MEDS: Lactobacillus Acidophilu (GG)* 1 CAP CAP PO SCH (09:01)
[2017-02-21] MEDS: Warfarin TAB(*) 5 MG PO SCH (09:01)
[2017-02-21] MEDS: buPROPion SR TAB.SR* 200 MG PO SCH (09:01)
[2017-02-21] MEDS: amLODIPine TAB* 5 MG PO SCH (09:01)
[2017-02-21 09:30] VITALS: BP 154/80
--- NOTE | 2017-02-21 11:46 | PN ---
Subjective Date of Service: 02/21/17 Interval History: Mr. Workman states that he is feeling well today and is prepared for discharge. He denies chest pain, SOB, nausea, or abdominal pain. Family History: Unchanged from Admission Social History: Unchanged from Admission Past Medical History: Unchanged from Admission Objective Vital Signs 02/20/17 02/20/17 02/20/17 12:03 15:24 19:25 Temperature 98.0 F 97.9 F 98.7 F Pulse Rate 52 55 56 Respiratory 15 16 22 Rate Blood Pressure 142/61 147/63 151/61 (mmHg) O2 Sat by Pulse 98 100 98 Oximetry 02/20/17 02/20/17 02/21/17 21:15 23:42 03:18 Temperature 97.8 F 97.5 F Pulse Rate 56 55 Respiratory 18 16 16 Rate Blood Pressure 129/65 148/63 (mmHg) O2 Sat by Pulse 98 98 Oximetry 02/21/17 02/21/17 07:20 08:30 Temperature 98.2 F Pulse Rate 65 Respiratory 14 14 Rate Blood Pressure 154/80 (mmHg) O2 Sat by Pulse 98 Oximetry Oxygen Devices in Use Now: None Appearance: Male sitting up in bed in NAD Eyes: No Scleral Icterus Ears/Nose/Mouth/Throat: NL Teeth, Lips, Gums, Mucous Membranes Moist Neck: Trachea Midline Respiratory: Symmetrical Chest Expansion and Respiratory Effort, Clear to Auscultation Cardiovascular: NL Sounds; No Murmurs; No JVD, No Edema Abdominal: NL Sounds; No Tenderness; No Distention Lymphatic: No Cervical Adenopathy Extremities: No Edema Skin: No Rash or Ulcers Neurological: Alert and Oriented x 3, NL Muscle Strength and Tone Nutrition: Taking PO's Result Diagrams: 02/19/17 07:41 02/18/17 05:39 Additional Lab and Data: Lab Results 02/17/17 02/17/17 02/17/17 Range/Units 18:10 18:10 18:10 WBC 13.4 H (3.5-10.8) 10^3/ul RBC 4.42 (4.0-5.4) 10^6/ul Hgb 13.1 L (14.0-18.0) g/dl Hct 40 L (42-52) % MCV 90 (80-94) fL MCH 30 (27-31) pg MCHC 33 (31-36) g/dl RDW 13 (10.5-15) % Plt Count 362 (150-450) 10^3/ul MPV 8 (7.4-10.4) um3 Neut % (Auto) 84.9 H (38-83) % Lymph % (Auto) 8.9 L (25-47) % [place] % (Auto) 4.9 (1-9) % Eos % (Auto) 0.4 (0-6) % Baso % (Auto) 0.9 (0-2) % Absolute Neuts (auto) 11.3 H (1.5-7.7) 10^3/ul Absolute Lymphs (auto) 1.2 (1.0-4.8) 10^3/ul Absolute Monos (auto) 0.7 (0-0.8) 10^3/ul Absolute Eos (auto) 0.1 (0-0.6) 10^3/ul Absolute Basos (auto) 0.1 (0-0.2) 10^3/ul Absolute Nucleated RBC 0 10^3/ul Nucleated RBC % 0 INR (Anticoag Therapy) (0.89-1.11) Sodium 136 (133-145) mmol/L Potassium 4.6 (3.5-5.0) mmol/L Chloride 104 (101-111) mmol/L Carbon Dioxide 25 (22-32) mmol/L Anion Gap 7 (2-11) mmol/L BUN 18 (6-24) mg/dL Creatinine 1.16 (0.67-1.17) mg/dL Est GFR ( Amer) 79.6 (>60) Est GFR (Non-Af Amer) 61.9 (>60) BUN/Creatinine Ratio 15.5 (8-20) Glucose 92 (70-100) mg/dL Lactic Acid 0.8 (0.5-2.0) mmol/L Calcium 9.2 (8.6-10.3) mg/dL Total Bilirubin 0.30 (0.2-1.0) mg/dL AST 16 (13-39) U/L ALT 24 (7-52) U/L Alkaline Phosphatase 94 (34-104) U/L C-Reactive Protein 21.34 H (< 5.00) mg/L Total Protein 7.5 (6.4-8.9) g/dL Albumin 3.6 (3.2-5.2) g/dL Globulin 3.9 (2-4) g/dL Albumin/Globulin Ratio 0.9 L (1-3) Amylase 41 (29-103) U/L Lipase 51 (11.0-82.0) U/L / Range/Units 18:10 WBC (3.5-10.8) 10^3/ul RBC (4.0-5.4) 10^6/ul Hgb (14.0-18.0) g/dl Hct (42-52) % MCV (80-94) fL MCH (27-31) pg MCHC (31-36) g/dl RDW (10.5-15) % Plt Count (150-450) 10^3/ul MPV (7.4-10.4) um3 Neut % (Auto) (38-83) % Lymph % (Auto) (25-47) % [place] % (Auto) (1-9) % Eos % (Auto) (0-6) % Baso % (Auto) (0-2) % Absolute Neuts (auto) (1.5-7.7) 10^3/ul Absolute Lymphs (auto) (1.0-4.8) 10^3/ul Absolute Monos (auto) (0-0.8) 10^3/ul Absolute Eos (auto) (0-0.6) 10^3/ul Absolute Basos (auto) (0-0.2) 10^3/ul Absolute Nucleated RBC 10^3/ul Nucleated RBC % INR (Anticoag Therapy) 3.13 H (0.89-1.11) Sodium (133-145) mmol/L Potassium (3.5-5.0) mmol/L Chloride (101-111) mmol/L Carbon Dioxide (22-32) mmol/L Anion Gap (2-11) mmol/L BUN (6-24) mg/dL Creatinine (0.67-1.17) mg/dL Est GFR ( Amer) (>60) Est GFR (Non-Af Amer) (>60) BUN/Creatinine Ratio (8-20) Glucose (70-100) mg/dL Lactic Acid (0.5-2.0) mmol/L Calcium (8.6-10.3) mg/dL Total Bilirubin (0.2-1.0) mg/dL AST (13-39) U/L ALT (7-52) U/L Alkaline Phosphatase (34-104) U/L C-Reactive Protein (< 5.00) mg/L Total Protein (6.4-8.9) g/dL Albumin (3.2-5.2) g/dL Globulin (2-4) g/dL Albumin/Globulin Ratio (1-3) Amylase (29-103) U/L Lipase (11.0-82.0) U/L Microbiology and Other Data: Microbiology 02/19/17 15:40 Stool Gross Appearance - Final Stool C. difficile DNA Amplification - Final 027 Presumptive NEGATIVE Toxigenic C.diff NEGATIVE Diagnostic Imaging: CT ABD/PELVIS: INDICATION: RIGHT lower quadrant pain. Question appendicitis, although pathology , colitis. History of systemic melanoma. COMPARISON: August 04, 2008 PET/CT TECHNIQUE: Multidetector CT images were obtained from the lung bases to the ischial tuberosities with 91 mL Visipaque 320 IV and oral contrast. Multiplanar reformation. REPORT: Minimal dependent basilar atelectasis. Coronary artery calcifications. Unremarkable liver, gallbladder, pancreas, and spleen aside from a few punctate calcified splenic granulomas. Negative for CT abnormality of the upper GI or small bowel. Inflamed retrocecal appendix measuring up to 8 mm diameter and remarkable for a few small appendicoliths at the distal segment. Mild periappendiceal inflammatory change. No periappendiceal abscess evident. Mild colonic diverticulosis without findings of diverticulitis. Trace free fluid at the RIGHT lower quadrant. Negative for free air. Negative for hernias. Unremarkable adrenal glands. Mildly atrophic kidneys with small cortical cysts. No suspicious focal renal lesions or hydronephrosis. Symmetric nephrograms and pyelograms. Unremarkable ureters and urinary bladder. Symmetric seminal vesicles. Negative for lymphadenopathy. Moderately severe atherosclerotic plaque of the abdominal aorta and iliac arteries without aneurysm. Partial physiologic distention of the IVC. Negative for suspicious focal osseous lesions. IMPRESSION: 1. Acute appendicitis without evidence for periappendiceal abscess. 2. No suspicious focal visceral lesions or lymphadenopathy. Assess/Plan/Problems-Billing Assessment: Mr. Ji Guidry is a 72 yo male with a PMH of recent early disseminated lyme disease, PAF, melanoma, CAD, HTN, HLD, depression, PE and NC who presented to the hospital 02/17/17 with concern for abd pain, nausea, fever that is secondary to acute appendicitis. - Patient Problems (1) Acute appendicitis Comment: - Afebrile, vitals stable, leukocytosis resolved. - Management per surgery, plan for him to follow up outpatient for planned surgery. (2) Paroxysmal atrial fibrillation Comment: - Currently in sinus rhythm. - Continue metoprolol succinate. - Resume warfarin. (3) CAD (coronary artery disease) Comment: - Continue metoprolol, statin. - Stress test was low risk. (4) Depression Comment: - Continue sertraline and bupropion. (5) HLD (hyperlipidemia) Comment: - Continue atorvastatin. (6) HTN (hypertension) Comment: - Normotensive. - Continue amlodipine, metoprolol. (7) Disseminated Lyme disease Comment: - Patient has completed course of amoxicillin as of 02/17/17. Continue outpatient follow-up as needed per recommendations from Dr. Cash. (8) Full code status (9) DVT prophylaxis Comment: - SQ heparin and SCDs. Status and Disposition: Inpatient admission. Surgery to discharge.
--- NOTE | 2017-02-28 02:58 | DS ---
CC: Dr. Willy Ly * DISCHARGE SUMMARY: DATE OF ADMISSION: 01/23/17 DATE OF DISCHARGE: 02/21/17 PRINCIPAL DIAGNOSIS: Acute appendicitis. SECONDARY DIAGNOSES: 1. Coronary artery disease, history of coronary artery stenting. 2. Recent Lyme disease. 3. History of metastatic melanoma. 4. Hypertension. 5. Hyperlipidemia. 6. Remote history of pulmonary embolism. SURGICAL PROCEDURE PERFORMED: None. DIAGNOSTIC STUDIES DONE: 1. CT scan of the abdomen and pelvis showing findings consistent with early acute appendicitis without abscess or perforation. 2. A cardiac stress test, which was nondiagnostic. 3. Nuclear medicine cardiac stress test showing no evidence of infarct or ischemia with a low-risk assessment. CONDITION ON DISCHARGE: Good. DISPOSITION: Home. MEDICINES ON DISCHARGE: 1. Amoxicillin 875 mg b.i.d. for 10 days. 2. Wellbutrin 200 mg b.i.d. 3. Omeprazole 20 mg daily. 4. Simvastatin 20 mg daily. 5. Zoloft 50 mg daily. 6. Amlodipine 5 mg daily. 7. Metoprolol 50 mg daily. FOLLOWUP: Surgical appointment was made to follow up in 1 week in the office. He was instructed to call sooner if he should develop fevers, severe abdominal pain, nausea or vomiting, or have other cause for concerns. HISTORY OF PRESENT ILLNESS: Ms. Dwight Guidry is a 72-year-old gentleman with a history of coronary artery disease, presently on Coumadin for recent onset of atrial fibrillation during the hospitalization several weeks prior to this presentation. He had developed some generalized abdominal discomfort, became more localized in the right lower quadrant and after about 24 to 36 hours, he presented to the emergency room. In the ER, he was noted to have a white blood cell count of 13,000. He had an INR of 3.13 and a mild elevation of his C-reactive protein. A CT scan of the abdomen and pelvis showed retrocecal appendix with mild thickening of the oneil. Three was noted a minimal amount of periappendiceal inflammation with a small appendicolith in its tip. HOSPITAL COURSE: The patient was seen in surgical consultation in the emergency room. Medical consultation with the hospitalist was also obtained. Coumadin was held and he was given vitamin K and admitted. He was started on intravenous IV Zosyn. After evaluation of a CT scan and his clinical status, which included an onset of atrial fibrillation requiring cardioversion and elevated troponin just 2 weeks ago, Cardiology consultation was obtained with Dr. Marco Frazier. After his admission 2 weeks ago, he was set up for an outpatient stress test. Dr. Frazier felt that he had had some demand ischemia and did recommend a stress test as planned. However, the patient started to improve dramatically on the IV antibiotics. His white count returned to normal, he remained afebrile, his pain resolved nicely over the next several days, and his diet was advanced as tolerated. At this point, decision was made to proceed with nonoperative management with IV antibiotic treatment of his acute appendicitis with consideration of an interval appendectomy after his cardiac evaluation. On the day prior to discharge, we were able to obtain a cardiac stress test, which was unremarkable as per above. Plan was for a followup in the office. He was restarted on his Coumadin for the atrial fibrillation, although he remained in normal sinus rhythm throughout his hospital stay and continued on his beta ena. PLAN: The plan for surgical care was discussed with the patient. He understood and we will follow up with him in the office. A decision regarding the timing of the interval appendectomy will be made at that time. [id number]/[facility] #: [id number] MTDD
== END 2017-02-21 11:05 | disposition home or self-care (01) | DRG 394 ==
LOC: ED 14:22 → SSU 22:39 → OBSVTOIN 02-19 07:53
PROVIDERS: ADMIT Surgery; ATTEND Surgery
DX: K35.80 Unspecified acute appendicitis (principal); A69.20 Lyme disease, unspecified; I11.9 Hypertensive heart disease without heart failure; I48.0 Paroxysmal atrial fibrillation; I25.10 Atherosclerotic heart disease of native coronary artery without angina pectoris; E78.5 Hyperlipidemia, unspecified; F32.9 Major depressive disorder, single episode, unspecified; F17.210 Nicotine dependence, cigarettes, uncomplicated; K21.9 Gastro-esophageal reflux disease without esophagitis; Z95.5 Presence of coronary angioplasty implant and graft; Z86.711 Personal history of pulmonary embolism; Z85.820 Personal history of malignant melanoma of skin; Z79.01 Long term (current) use of anticoagulants; Z79.1 Long term (current) use of non-steroidal anti-inflammatories (NSAID); Z79.899 Other long term (current) drug therapy; I25.2 Old myocardial infarction
CPT/HCPCS: 36415; 74177; 78452; 80048; 80053; 80061; 81003; 82150; 83605; 83690; 85025; 85610; 86140; 87040; 87493; 93005; 93017; A9270-GY; A9502; G0378; J1644; J2270; J2405; J2543; J2785; Q9967

== ENCOUNTER 2017-12-25 10:01 | Observation (INO) | payer MEDICARE ==
[2017-12-25] MEDS ORDERED: Diazepam TAB(*) 5 MG ONE (11:03)
[2017-12-25] MEDS ORDERED: diPHENhydraMINE PO* 25 MG ONE (11:04)
[2017-12-25] MEDS ORDERED: Heparin(*) 1000 UNIT/ML 10 ML VIAL CATH LAB IV ONE (11:18)
[2017-12-25] MEDS ORDERED: fentaNYL* 50 MCG/ML 2 ML VIAL (100 MCG VIAL) ONE (11:18)
[2017-12-25] MEDS ORDERED: Midazolam* 1 MG/ML 10 ML VIAL (10 MG) ONE (11:19)
[2017-12-25] MEDS ORDERED: nitroGLYCERIN DRIP* 25,000 MCG/250 ML BTL ONE (11:19)
[2017-12-25] MEDS ORDERED: Lidocaine 1% INJ* 10 MG/ML 30 ML SDV ONE (11:19)
[2017-12-25] MEDS ORDERED: Heparin 2 UNITS/ML IVPREMIX* 2,000 ML IV ONE (11:19)
[2017-12-25] MEDS ORDERED: Iodixanol* (CONTRAST) 320 MG/ML 100 ML SDV ONE ×2 (11:20→12:18)
[2017-12-25] MEDS ORDERED: VERAPAMIL 2.5 MG/ML 2 ML VIAL ** 5 mg/2 ml ONE (11:23)
[2017-12-25] MEDS ORDERED: Bivalirudin(*) 250 MG VIAL ONE (12:16)
[2017-12-25] MEDS ORDERED: Ticagrelor* 90 MG TAB PO ONE ×3 (12:32→16:50)
[2017-12-25] MEDS ORDERED: NS 0.9% 1000 ML* 1,000 ML IV ONE (13:12)
[2017-12-25] MEDS ORDERED: Nitroglycerin TAB 0.4 MG* 0.4 MG TAB SL PRN (13:12)
[2017-12-25] MEDS ORDERED: Docusate CAP* 100 MG PO PRN (13:12)
[2017-12-25] MEDS ORDERED: Acetaminophen TAB* 325 MG PO PRN (13:12)
[2017-12-25] MEDS: Omeprazole CAP* 20 MG PO SCH (18:48)
[2017-12-25] MEDS ORDERED: Atorvastatin* 10 MG TAB PO SCH (20:00)
[2017-12-25] MEDS: Ticagrelor* 90 MG TAB PO SCH (20:55)
[2017-12-25] MEDS ORDERED: Fluticasone NASAL SPRAY 50MCG* 16 gm SPRAY BTL BOTH NARES SCH (21:00)
[2017-12-25] MEDS ORDERED: Ticagrelor* 90 MG TAB PO SCH (21:00)
[2017-12-25] MEDS ORDERED: buPROPion SR TAB.SR* 200 MG PO SCH (21:00)
[2017-12-26] MEDS ORDERED: Heparin DRIP 25,000 UNITS(*) 25,000 UNITS/500 ML BAG IV SCH ×2 (05:30→06:00)
[2017-12-26 05:36] LABS: Hematocrit 40 % (42-52); Hemoglobin 13.9 g/dl (14.0-18.0); Mean Corpuscular HGB Conc 34 g/dl (31-36); Mean Corpuscular Hemoglobin 31 pg (27-31); Mean Corpuscular Volume 90 fL (80-94); Mean Platelet Volume 8.3 um3 (7.4-10.4); Platelet Count 183 10^3/ul (150-450); Red Cell Distribution Width 13 % (10.5-15); White Blood Count 8.2 10^3/ul (3.5-10.8)
[2017-12-26 05:55] LABS: EGFR Non-African American 50.6 (>60)
[2017-12-26] MEDS ORDERED: Heparin VIAL(*) 5000 UNITS/ML VIAL (FIVE THOUSAND) IV SCH ×2 (06:00)
[2017-12-26] MEDS ORDERED: NS 0.9% 1000 ML* 1,000 ML IV SCH (06:00)
[2017-12-26] MEDS ORDERED: nitroGLYCERIN DRIP* 25,000 MCG/250 ML BTL IV SCH (06:00)
--- NOTE | 2017-12-26 07:39 | CATH ---
CC: Dr. Ly; Dr. Medellin * CARDIAC CATHETERIZATION REPORT: DATE OF PROCEDURE: 12/25/17 INDICATION: Angina, coronary artery disease, abnormal stress test. PROCEDURES: Coronary angiography, left heart catheterization, left ventriculogram. INDICATION FOR PROCEDURE: The patient is a 72-year-old gentleman with a history of coronary artery disease, history of stenting to his right coronary artery in 1999. At that time, he had two stents to his right coronary artery. The patient came to see me at the middle of November for routine followup, and he stated that he was having episodes of chest pain. He described a significant episode of chest pain associated with diaphoresis and nausea that lasted approximately 24 hours. At the time of my visit on December 01, he was asymptomatic. Patient underwent a chemical nuclear stress test on Monday which showed a large area of ischemia to his inferolateral wall. Cardiac catheterization was recommended. DESCRIPTION OF PROCEDURE: The patient was brought to the cardiac catheterization lab in a fasting state. Informed consent had been obtained prior to the procedure. All labs have been reviewed. The patient was placed supine on the procedure table. His right wrist area was prepped and draped in usual fashion. 1% lidocaine was used for local anesthesia. Though right radial artery was entered by a Seldinger technique and a guidewire was placed over the guidewire, a 6-Tajik hydrophilic sheath was placed and patient underwent cardiac catheterization and left ventriculogram. Left ventriculogram overall LV size was normal. Estimated ejection fraction 55%. There is mild hypokinesis to the inferior wall. There is no mitral regurgitation. Aortic valve and ascending aorta appeared normal. CORONARY ARTERIES: 1. Left main artery - the left main was normal in size. It bifurcated into the LAD and circumflex. The distal left main had a 30% stenosis. 2. Left anterior descending artery - the LAD was normal in size. It gave off one diagonal vessel. The LAD itself had an ostial 40% stenosis. There was moderate calcification of the proximal vessel. There was a 50% stenosis to the D1 vessel at the mid vessel. 3. Left circumflex artery - the circumflex artery was normal in size. It gave off three obtuse marginal branches. There was no evidence of stenosis. The second obtuse marginal was completely occluded. 4. Right coronary artery - the RCA was a large dominant vessel, given off the PDA. The proximal portion of the right coronary had heavy calcification. The stent in the mid right coronary artery had a distal 95% stenosis in the stent itself. The distal RCA had moderate calcification. The PDA itself was subtotally occluded with collateral flow from the LAD. The large posterolateral branch off the right coronary had no significant disease. IMPRESSION: 1. Critical disease to the stent in the right coronary artery with a 95% stenosis. 2. Heavy calcification of the proximal right coronary artery with an eccentric 50% stenosis. 3. Subtotally occluded patent ductus arteriosus with collateral flow from the left anterior descending coronary artery. 4. Moderate disease to the distal left main and proximal left anterior descending coronary artery. RECOMMENDATION: The patient will be considered for angioplasty and stenting of his right coronary artery. [id number]/[facility] #: [id number] WOLF
--- NOTE | 2017-12-26 07:46 | CATH ---
CONTINUATION ADDENDUM NOW INCLUDED ON THIS REPORT CC: Willy Ly MD; Mike Funes MD * INTERVENTION REPORT: DATE OF PROCEDURE: 12/25/17 INDICATION FOR THE PROCEDURE: The patient with a recent episode of significant chest discomfort, abnormal EKG with T-wave inversions in the inferior leads with a history of prior stents placed in the right coronary artery, mid and distal portion. PROCEDURE: Balloon angioplasty of the mid right coronary artery lesion, and attempt at the proximal to mid lesion. DESCRIPTION OF PROCEDURE: The patient had already undergone diagnostic procedure by Dr. Funes. Please refer to his report for complete details of his findings. The decision was made to attempt intervening into the mid right coronary artery 95% lesion as it turned onto the inferior surface of the heart. This segment appeared to be just distal to the stent that was placed in the mid right coronary artery. The patient received 180 mg of ,Brilinta and guiding views were obtained utilizing initially a 6-Samo[place] Heartrail IR 1.0 catheter and eventually an IR 1.5 curve catheter for extra support. Guidewires utilized were a BMW regular length and an All Star exchange length for added support. Balloon angioplasty to the distal lesion was performed utilizing a 2.5 x 12 mm long non-compliant Emerge balloon. Balloon angioplasty to the proximal to mid lesion was attempted utilizing a 2.0 x 12 mm long NC Emerge. MEDICATIONS GIVEN DURING THE INTERVENTION: Included an Angiomax bolus and an Angiomax drip which was started after the ACT was found to be subtherapeutic from the radial cocktail heparin. Intercoronary nitroglycerin was given as well. DESCRIPTION OF PROCEDURE: The patient already has an existing right radial artery sheath in place. Guiding views were obtained. After the patient received a bolus of the Angiomax and the Angiomax drip was started, the BMW wire was advanced down into the distal portion of the right coronary artery. Because of some degree of tortuosity as well, in addition to calcium present, a second steve wire utilizing the All Star wire was placed in the distal vessel, and balloon angioplasty was performed. Of note, extra views were then taken given the fact that there was difficulty advancing the balloon to that area in the more proximal to mid segment, which demonstrated a 70% obstruction. Balloon angioplasty was then attempted utilizing a 2.0 x 12 mm long NC Emerge balloon to initially create a channel to deliver the distal stent. Unfortunately , this balloon ruptured at a fairly low pressure. Given this finding, and knowing the degree of calcium there, the decision was made to abort the procedure at this point as it was felt that the proper way to perform the procedure would be with rotational atherectomy to do an initial debulking of the more proximal lesion to guarantee the ability of delivery and perhaps full expansion of the proximal to mid area. At the end of the case, the wire was removed and further injections were made to assess the stability of the lesion. It was found to be stable and as such, the guiding catheter was removed. Hemostasis was obtained with a Vasc band. RESULTS: Balloon angioplasty of distal 95% right coronary artery, reducing it to 75% with PARVIN-3 flow; no significant dissection noted. Unsuccessful attempt at dilatation of the proximal to mid narrowing in the right coronary artery with residual narrowing of 70% to 75% still noted. I had a discussion with Dr. Funes regarding these results and we will admit the patient overnight to make sure he remains stable. Consideration will be made toward either rotational atherectomy with debulking of the right coronary artery and eventual stent placement or possible consideration toward open heart surgery given the fact that the patient has other lesions that are present, although reversible ischemia was not identified well to these zones. [id number]/[facility] #: [id number] Chandni [id number]/[facility] #: [id number] WOLF
--- NOTE | 2017-12-26 07:55 | CATH ---
ADDENDUM: DATE OF PROCEDURE: 12/25/17 MEDICATIONS: I did not give 180 mg of Brilinta - don't put that; I did not give 180 mg of Brilinta. The patient already has an existing right radial artery sheath in place. Guiding views were obtained. After the patient received a bolus of the Angiomax and the Angiomax drip was started, the BMW wire was advanced down into the distal portion of the right coronary artery. Because of some degree of tortuosity as well, in addition to calcium present, a second steve wire utilizing the All Star wire was placed in the distal vessel, and balloon angioplasty was performed. Of note, extra views were then taken given the fact that there was difficulty advancing the balloon to that area in the more proximal to mid segment, which demonstrated a 70% obstruction. Balloon angioplasty was then attempted utilizing a 2.0 x 12 mm long NC Emerge balloon to initially create a channel to deliver the distal stent. Unfortunately, this balloon ruptured at a fairly low pressure. Given this finding, and knowing the degree of calcium there, the decision was made to abort the procedure at this point as it was felt that the proper way to perform the procedure would be with rotational atherectomy to do an initial debulking of the more proximal lesion to guarantee the ability of delivery and perhaps full expansion of the proximal to mid area. At the end of the case, the wire was removed and further injections were made to assess the stability of the lesion. It was found to be stable and as such, the guiding catheter was removed. Hemostasis was obtained with a Vasc band. RESULTS: Balloon angioplasty of distal 95% right coronary artery, reducing it to 75% with PARVIN-3 flow; no significant dissection noted. Unsuccessful attempt at dilatation of the proximal to mid narrowing in the right coronary artery with residual narrowing of 70% to 75% still noted. I had a discussion with Dr. Funes regarding these results and we will admit the patient overnight to make sure he remains stable. We will start Brilinta therapy on him as a dual antiplatelet agent, and consideration will be made toward either rotational atherectomy with debulking of the right coronary artery and eventual stent placement or possible consideration toward open heart surgery given the fact that the patient has other lesions that are present, although reversible ischemia was not identified well to these zones. [id number]/[facility] #: [id number] [facility]
[2017-12-26] MEDS ORDERED: Metoprolol Succinate XL TAB* 50 MG PO SCH ×2 (09:00→20:00)
[2017-12-26] MEDS ORDERED: amLODIPine TAB* 5 MG PO SCH (09:00)
[2017-12-26] MEDS ORDERED: Aspirin 81 mg CHEW TAB* 81 MG TAB.CHEW PO SCH (09:00)
[2017-12-26] MEDS ORDERED: Aspirin EC TAB* 81 MG TAB.EC PO SCH (09:00)
[2017-12-26] MEDS ORDERED: buPROPion SR TAB.SR* 200 MG PO SCH (09:00)
[2017-12-26] MEDS ORDERED: Sertraline* 50 MG TAB PO SCH (09:00)
[2017-12-26] MEDS: Omeprazole CAP* 20 MG PO SCH (09:06)
[2017-12-26] MEDS: Ticagrelor* 90 MG TAB PO SCH (09:06)
[2017-12-26 16:11] VITALS: BP 172/78
--- NOTE | 2017-12-26 22:27 | TRS ---
CC: Dr. Al Medellin * TRANSFER SUMMARY: DATE OF ADMISSION: 12/25/17 DATE OF DISCHARGE: 12/26/17 HOSPITAL COURSE: Please see my admission history and physical for details of this presentation. The patient is a 72-year-old gentleman with a history of coronary artery disease , history of stenting to his right coronary artery in 1999. The patient has been experiencing unstable angina. The patient had a stress test, which showed ischemia to his inferolateral and inferior wall. His anterior wall showed no evidence of ischemia. He had normal LV function. The patient was admitted to the hospital for cardiac catheterization. The patient's cardiac catheterization showed a distal left main stenosis of 40% , a proximal LAD stenosis of 40%. The remainder of the vessels had no significant disease. His right coronary artery had proximal calcification, his stent to his mid right coronary had a 95% in-stent right restenosis. His PDA is subtotally occluded with competitive flow from collaterals from his LAD. The patient underwent attempted angioplasty and stenting to his right coronary artery. Dr. Medellin was able to get a balloon down and ballooned his right coronary artery, but was unable to advance a stent due to his heavy calcification. The patient was admitted to the hospital overnight. Overnight, the patient did experience some shortness of breath and chest pain at which time he was started on heparin and nitroglycerin. This morning, the patient is pain free. His troponin level is 0.5. The recommendation is the patient be transferred to [facility] for rotablator intervention to his right coronary artery. DISCHARGE MEDICATIONS: 1. Acetaminophen 600 q.6 hours p.r.n. 2. Amlodipine 5 mg a day. 3. Aspirin 81 mg a day. 4. Atorvastatin 10 mg a day. 5. Bupropion 200 mg b.i.d. 6. Heparin drip. 7. Metoprolol succinate 50 mg q.h.s. 8. Nitroglycerin drip. 9. Sertraline 50 mg a day. 10. Omeprazole 20 mg b.i.d. 11. Brilinta 90 mg b.i.d. ALLERGIES: The patient has no known drug allergies. PHYSICAL EXAMINATION: Vital Signs: Blood pressure 179/102, heart rate is 58, oxygen saturation 98%, temperature 98.2. HEENT: Sclerae anicteric. Oropharynx is pink without erythema. Carotids are 2+ without bruits. JVD is normal. Thyroid is normal. Cardiac Exam: S1, S2 without any murmur rubs or gallops. Lungs are clear to auscultation. Extremities show no edema. His right wrist cath site is stable. LABORATORY DATA: CBC within normal limits. Chemistry this morning, sodium of 139, potassium 4.2, BUN 21, creatinine 1.38. His baseline creatinine is 1.08. Again, his troponin level is 0.49. Total CK 87, CK-MB 9.4. DISPOSITION: The patient will be transferred to [facility] under the care of Dr. Rodrigo Clarke at [facility]. I will see the patient in followup after his discharge from [facility]. [id number]/[facility] #: [id number] MTDSophy
== END 2017-12-26 16:00 | disposition short-term general hospital (02) ==
LOC: CHICATH 10:01 → ICU 13:15 → CHICATH 13:44 → UNDODISOB 12-26 11:29
PROVIDERS: ADMIT Specialist; ATTEND Specialist
DX: I25.10 Atherosclerotic heart disease of native coronary artery without angina pectoris (principal); I20.0 Unstable angina; Z95.5 Presence of coronary angioplasty implant and graft; R07.9 Chest pain, unspecified; I48.91 Unspecified atrial fibrillation; F32.9 Major depressive disorder, single episode, unspecified; I10 Essential (primary) hypertension; E78.5 Hyperlipidemia, unspecified
CPT/HCPCS: 36415; 80053; 82550; 82553; 84484; 85027; 85730; 87641; 93005; 93458; 96374; 99156; 99157; A9270-GY; C1725; C1769; G0378; J0583; J1644; J2250; J3010

== ENCOUNTER → 2018-06-15 20:14 | Emergency (ER) | payer MEDICARE ==
[~2018-06-15 20:14] MED LIST: Lidocaine 1%* 5 ML VIAL INJ ONE; NS 0.9% 1000 ML* 1,000 ML IV ONE
--- NOTE | 2018-06-15 20:54 | UC ---
Head Injury HPI - HPI Summary HPI Summary: 73-year-old male presents for head laceration will not stop bleeding. States around 4:00 this afternoon he stepped out of his vehicle slipped on some ice and struck his head on the driveway blacktop. Denies any loss of consciousness , neck pain, or other injury. Has a history of atrial fibrillation and is on Brilinta, aspirin and also takes Fish oil daily. He was holding pressure to his head with multiple paper towels under a cloth towel with profuse bleeding continuing. Upon removing the towels unable to visualize laceration d/t large blood clots matted in his hair. A pressure bandage was applied at that time. Denies chest pain, palpitations, dizziness, lightheadedness, slurred speech, visual disturbances, confusion, memory loss, weakness, numbness, or tingling of his extremities, abdominal pain, nausea, or vomiting. - History Of Current Complaint Chief Complaint: UCHeadInjury Stated Complaint: HEAD LACERATION Time Seen by Provider: 06/15/18 20:27 Hx Obtained From: Patient Onset/Duration: Sudden Onset Pain Intensity: 3 Associated Signs And Symptoms: Negative: LOC (Time In Secs./Mins/Hrs), Confusion , Memory Loss, Seizure, Epistaxis, Neck Pain, Nausea, Vomiting Anticoagulant Therapy: ASA, Platelet Inhibitors - Risk Factors SDH Risk Factor: Male, Recent Trauma, Anticoagulent Use, Elderly - Allergies/Home Medications Allergies/Adverse Reactions: Allergies Allergy/AdvReac Type Severity Reaction Status Date / Time doxycycline Allergy TACHYCARDIA, Verified 06/15/18 20:25 HEART ISSUES Home Medications: Home Medications Ascorbic Acid TAB* [Vitamin C TAB*] 500 mg PO DAILY 06/15/18 [History Confirmed 06/15/18] Atorvastatin* [Lipitor*] 40 mg PO DAILY 06/15/18 [History Confirmed 06/15/18] Metoprolol Tartrate TAB* [Lopressor TAB*] 25 mg PO TID 06/15/18 [History Confirmed 06/15/18] Multivitamin [Multivitamins] 1 each PO DAILY 06/15/18 [History Confirmed ] [place]-3 Fatty Acids/Fish Oil [Fish Oil 1,000 mg Capsule] 1 each PO DAILY [History Confirmed 06/15/18] Ticagrelor* [Brilinta*] 90 mg PO BID 06/15/18 [History Confirmed 06/15/18] Vitamin B Complex TAB* [B Complex-50*] 1 tab PO DAILY 06/15/18 [History Confirmed 06/15/18] PMH/Surg Hx/FS Hx/Imm Hx Endocrine History: Dyslipidemia Cardiovascular History: Cardiac Disease, Hypertension, Atrial Fibrillation Psychological History: Depression - Surgical History Surgical History: Yes Surgery Procedure, Year, and Place: 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 - Family History Known Family History: Positive: Cardiac Disease - [place] - mother and sister - Social History Occupation: Retired Lives: Alone Alcohol Use: Rare Substance Use Type: None Smoking Status (MU): Former Smoker Type: Cigarettes Amount Used/How Often: 1/2 pck/day Have You Smoked in the Last Year: Yes - Immunization History Most Recent Influenza Vaccination: 2013 Most Recent Tetanus Shot: UNKNOWN Most Recent Pneumonia Vaccination: 2017 Review of Systems All Other Systems Reviewed And Are Negative: Yes Constitutional: Negative: Fever, Chills Skin: Positive: Other - Laceration Eyes: Negative: Diplopia, Photophobia Respiratory: Negative: Shortness Of Breath Cardiovascular: Negative: Palpitations, Chest Pain Gastrointestinal: Negative: Abdominal Pain, Vomiting, Nausea Motor: Negative: Weakness Neurovascular: Negative: Decreased Sensation Musculoskeletal: Negative: Arthralgia, Decreased ROM, Myalgia Neurological: Negative: Headache, Weakness, Paresthesia, Numbness Is Patient Immunocompromised?: No Physical Exam Triage Information Reviewed: Yes Appearance: No Pain Distress, Thin Vital Signs: Initial Vital Signs Temp 95.6 F 06/15/18 20:19 Pulse 67 06/15/18 20:19 Resp 16 06/15/18 20:19 BP 121/71 06/15/18 20:19 Pulse Ox 100 06/15/18 20:19 Vital Signs Reviewed: Yes ENT: Positive: Pharynx normal, Uvula midline, Other - No jaw pain or malocclusion. Negative: Nasal congestion, Nasal drainage, Dental tenderness Neck: Positive: Supple, Nontender Respiratory: Positive: Lungs clear, Normal breath sounds, No respiratory distress Cardiovascular: Positive: RRR, No Murmur, Pulses Normal, Brisk Capillary Refill Abdomen Description: Positive: Nontender, No Organomegaly, Soft. Negative: Distended, Guarding Bowel Sounds: Positive: Present Musculoskeletal: Positive: Strength Intact, ROM Intact Neurological: Positive: Alert, Muscle Tone Normal, Other: - PERRLA. CN II-XII grossly intact. COVARRUBIAS equal and strong. Gait steady. Skin: Positive: Significant Lesion(s) - See diagram. Procedures - Procedure Summary Procedure Summary: Procedure note: Laceration repair of scalp Informed consent was obtained before procedure started and the appropriate timeout was taken. The patient was placed over the sink and copious irrigation was done to remove clotted blood and identify laceration. A 1 cm linear laceration was identified with profuse bleed to the mid occipital scalp. Local anesthesia was achieved using 1 ml of lidocaine 1% without epinephrine. A single figure 8 suture was placed using 4-0 Prolene. Wound margins were brought into good alignment and bleeding was controlled. Patient had a large amount of blood loss was prior to arrival therefore unable to estimate with certainty. Patient experienced a brief episode of unresponsiveness approximately 10 minutes after completion of laceration repair while nursing was attempting to finish cleaning up remaining blood and clots. Patient was transferred to emergency room via ambulance prior to receiving anticipatory guidance and follow up care instructions. Diagnostics - Laboratory Diagnostic Studies Completed/Ordered: [facility] - Radiology No standard instances Radiology Interpretation Completed By: Radiologist - V-rad reports no acute cranial hemorrhage - EKG Cardiac Rate: Bradycardia - Rate 57 Cardiac Rhythm: Sinus: Normal Ectopy: None ST Segment: Normal Re-Evaluation - Re-Evaluation First Eval Re-Evaluation Time: 21:25 Comment: Was urgently called to room by RN. Patient had vomited x 1. As I entered the room, the patient was sitting on stretcher, awake but not responding to verbal stimuli. He vomited 1 more time small amount clear yellow emesis. Patient started to arouse after approximately 15 seconds. At first he was only oriented to self but quickly regained alertness and orientation. Had no recollection of event. Patient was assisted to a lying position with head of bed at 45 degrees and a reassessment performed. Awake, alert, oriented x 4. No facial droop or slurred speech. CN II-XII grossly intact. COVARRUBIAS equal and strong. Sensation grossly intact in all extremities. HR regular. S1 S2. Bilateral breath sounds clear. Patient continues to complain of mild nausea. Head Injury Course/Dx - Course Course Of Treatment: 73-year-old male presents for head laceration will not stop bleeding. States around 4:00 this afternoon he stepped out of his vehicle slipped on some ice and struck his head on the driveway blacktop. Denies any loss of consciousness, neck pain, or other injury. Has a history of atrial fibrillation and is on Brilinta, aspirin and also takes Fish oil daily. He was holding pressure to his head with multiple paper towels under a cloth towel with profuse bleeding continuing. Upon removing the towels unable to visualize laceration d/t large blood clots matted in his hair. A pressure bandage was applied at that time and patient was sent for CT head. Upon returning from CT patient was positioned over sink and scalp was irrigated copiously with tap water to remove clotted blood and identify laceration. A 1 cm linear laceration with profuse bleeding was identified to the mid occipital scalp. Direct pressure was held long enough to acheive good anesthesia with 1% lidocaine. Hemostasis was achieved with a single figure 8 suture using 4-0 Prolene. Approximately 10 minutes later, patient became nauseous, had an episode of vomiting, then had a brief period of unresponsiveness lasting approximately 15 seconds. He quickly returned to baseline however had no recollection of incident. He was assisted onto stretcher with HOB at 45 degrees. IV access was obtained and a bolus of normal saline started. [facility] 145. 12 lead EKG showed sinus bradycardia without ectopy or ST changes. Patient remained at baseline without neruo deficits and was transferred to [facility] ED for further evaluation via [place] ambulance. - Differential Dx/Diagnosis Differential Diagnosis/HQI/PQRI: Cerebral Contusion, Concussion Without LOC, Intracranial Bleed Provider Diagnoses: Closed head injury, scalp laceration, unresponsive episode - Physician Notification/Consults Discussed Patient Care With: CH[facility] [place] - [facility] ED Time Discussed With Above Provider: 21:35 Instructed by Provider To: MD Will See In ED Discharge - Sign-Out/Discharge Documenting (check all that apply): Patient Departure All imaging exams completed and their final reports reviewed: Yes - Discharge Plan Condition: Guarded Disposition: TRANS HIGHER LVL OF CARE FAC Patient Education Materials: Laceration (ED) Referrals: Willy Ly MD [Primary Care Provider] - Additional Instructions: Patient was advised to transfer to [facility] ED via ambulance for further evaluation. Agreeable to transfer. - Billing Disposition and Condition Condition: GUARDED Disposition: Trans Higher Lvl of Care Fac Images Head: 1 - 1 cm linear laceration with profuse bleeding
[2018-06-15 22:34] VITALS: BP 157/69
== END | disposition short-term general hospital (02) ==
LOC: UCEAST 20:14
DX: S01.01XA Laceration without foreign body of scalp, initial encounter (principal); I10 Essential (primary) hypertension; E78.5 Hyperlipidemia, unspecified; Z79.899 Other long term (current) drug therapy; Z87.891 Personal history of nicotine dependence; Z88.1 Allergy status to other antibiotic agents; W00.0XXA Fall on same level due to ice and snow, initial encounter; Y92.9 Unspecified place or not applicable
CPT/HCPCS: 12001; 70450; 93005; 99214; G0463

== ENCOUNTER 2018-06-15 22:09 | Emergency (ER) | payer MEDICARE ==
--- NOTE | 2018-06-15 22:43 | ED ---
Head Injury - HPI Summary HPI Summary: Pt is a 73 y/o male brought in by EMS who presents to the ED s/p head injury. At 17:00 today he slipped on ice and fell backwards. Pt hit his head, right elbow, and right hand. His head wouldnt stop bleeding, so he went to the around 19:30. While at the his laceration was sutures, and he had a syncopal episode while standing over the sink. A brain CT was negative, and the EKG done at was reviewed. Pt is on Brilinta and ASA. He previously had N/V, but he no longer is nauseated. - History Of Current Complaint Chief Complaint: EDNauseaVomitDiarrh Stated Complaint: FALL/SYNCOPE Time Seen by Provider: 06/15/18 22:35 Hx Obtained From: Patient Mechanism Of Injury: Fall From A Standing Position - slipped on ice Onset/Duration: Started Hours Ago - 17:00 Pain Intensity: 0 Pain Scale Used: 0-10 Numeric Associated Signs And Symptoms: LOC (Time In Secs./Mins/Hrs), Nausea, Vomiting Anticoagulant Therapy: ASA, Blood Thinners - Brilinta - Allergies/Home Medications Allergies/Adverse Reactions: Allergies Allergy/AdvReac Type Severity Reaction Status Date / Time doxycycline Allergy TACHYCARDIA, Verified 06/15/18 20:25 HEART ISSUES PMH/Surg Hx/FS Hx/Imm Hx Endocrine/Hematology History: Denies: Hx Diabetes Cardiovascular History: Reports: Hx Angina, Hx Coronary Artery Disease - PCI to disstal RCA,PDA, Hx Hypercholesterolemia, Hx Hypertension, Hx Myocardial Infarction, Other Cardiovascular Problems/Disorders - tachycardia Denies: Hx Peripheral Vascular Disease, Hx Valvular Heart Disease Respiratory History: Denies: Hx Asthma, Hx Chronic Obstructive Pulmonary Disease (COPD) Musculoskeletal History: Denies: Hx Osteoporosis Sensory History: Reports: Hx Contacts or Glasses Denies: Hx Hearing Aid Opthamlomology History: Reports: Hx Contacts or Glasses Neurological History: Denies: Hx Headaches, Hx Seizures, Hx Transient Ischemic Attacks (TIA) Psychiatric History: Reports: Hx Depression - Cancer History Cancer Type, Location and Year: SYSTEMIC MELANOMA (TREATED IN 2065, 2006, 2007) - Surgical History Surgery Procedure, Year, and Place: 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 - Immunization History Date of Tetanus Vaccine: 2014 (approximately) Date of Influenza Vaccine: 2014 Infectious Disease History: No Infectious Disease History: Denies: Hx Clostridium Difficile, Hx Hepatitis, Hx Human Immunodeficiency Virus (HIV), Hx of Known/Suspected MRSA, Hx Shingles, Hx Tuberculosis, History Other Infectious Disease, Traveled Outside the [place] in Last 30 Days - Family History Known Family History: Positive: Cardiac Disease - [place] - mother and sister - Social History Alcohol Use: Rare Hx Substance Use: No Substance Use Type: Reports: None Hx Tobacco Use: Yes Smoking Status (MU): Former Smoker Type: Cigarettes Amount Used/How Often: 1/2 pck/day Have You Smoked in the Last Year: Yes Review of Systems Positive: Vomiting, Nausea Positive: Other - head laceration Positive: Syncope All Other Systems Reviewed And Are Negative: Yes Physical Exam - Summary Physical Exam Summary: Appearance: Well appearing, no pain distress Skin: warm, dry, reflects adequate perfusion Head/face: 1 cm laceration to midline superior occiput with sutures in it, no active bleeding Eyes: EOMI, VALERIE ENT: mucous membranes moist Neck: supple, non-tender Respiratory: CTA, breath sounds present Cardiovascular: RRR, pulses symmetrical Abdomen: non-tender, soft Bowel Sounds: present Musculoskeletal: normal, strength/ROM intact Neuro: normal, sensory motor intact, A&Ox3 Triage Information Reviewed: Yes Vital Signs On Initial Exam: Initial Vitals Temp Pulse Resp BP Pulse Ox 98.8 F 55 17 145/65 97 06/15/18 22:23 06/15/18 22:23 06/15/18 22:23 06/15/18 22:23 06/15/18 22:23 Vital Signs Reviewed: Yes Diagnostics - Vital Signs Vital Signs Temp Pulse Resp BP Pulse Ox 06/15/18 22:23 98.8 F 55 17 145/65 97 - Laboratory Lab Statement: Any lab studies that have been ordered have been reviewed, and results considered in the medical decision making process. Head Injury Course/Dx Course Of Treatment: Patient sent from urgent care after vasovagal event while he was standing getting a scalp wound cleaned. Head CT was negative and EKG was normal. Patient has fully recovered since with IV fluids. He ate a meal here and was able to get up and walk without symptoms. His laceration is not bleeding. - Diagnoses Differential Diagnosis/HQI/PQRI: Hematoma, Other - Vasovagal event, hemorrhage Provider Diagnoses: Vasovagal syncope, Scalp laceration, Head injury Discharge - Sign-Out/Discharge Documenting (check all that apply): Patient Departure - Discharge - Discharge Plan Condition: Improved Disposition: HOME Patient Education Materials: Syncope (ED) Referrals: Willy Ly MD [Primary Care Provider] - Additional Instructions: Suture to be removed in 10 days. Dress with bacitracin ointment. You may shower and get the blood out of your hair. If you feel lightheaded, weak or dizzy cut metoprolol back to 25 mg twice a day. Call in the morning to schedule follow-up with her primary care doctor. Return with repetitive vomiting, headaches, worse, new symptoms or other concerns. - Billing Disposition and Condition Condition: IMPROVED Disposition: Home - Attestation Statements Document Initiated by Jillian: Yes Documenting Scribe: Guillermina Lubin Provider For Whom Jillian is Documenting (Include Credential): Guerrero Campbell MD Scribe Attestation: Guillermina Esposito, scribed for Guerrero Campbell MD on 06/16/18 at 0127. Scribe Documentation Reviewed: Yes Provider Attestation: The documentation as recorded by the porfirioibGuillermina pierce accurately reflects the service I personally performed and the decisions made by me, Guerrero Campbell MD
[2018-06-15] MEDS ORDERED: Ondansetron INJ* 2 MG/ML VIAL IV ONE (22:44)
[2018-06-15 23:38] VITALS: BP 146/70
== END 2018-06-15 23:44 | disposition home or self-care (01) ==
LOC: ED 22:09
DX: R55 Syncope and collapse (principal); S01.01XA Laceration without foreign body of scalp, initial encounter; S09.90XA Unspecified injury of head, initial encounter; W00.0XXA Fall on same level due to ice and snow, initial encounter; Y92.9 Unspecified place or not applicable; Z79.01 Long term (current) use of anticoagulants; Z79.82 Long term (current) use of aspirin; Z89.421 Acquired absence of other right toe(s); Z88.1 Allergy status to other antibiotic agents; Z87.891 Personal history of nicotine dependence
CPT/HCPCS: 96374; 99283; J2405

== ENCOUNTER 2020-04-01 05:52 | Inpatient (IN) ==
[2020-04-01] MEDS ORDERED: cefTRIAXone 2 GM ADDV.VIAL 2 GM in NS 0.9% 100 ml BAG 100 ML IVPB ONE (06:32)
[2020-04-01] MEDS ORDERED: NS 0.9% 1000 ml BAG 1,000 ML IV.FLUID IV ONE (06:32)
[2020-04-01] MEDS ORDERED: Diltiazem IV push/loading dose 5 MG/ML 5 ML vial (25 mg) IV SLOW PU ONE ×2 (06:37→07:20)
[2020-04-01] MEDS ORDERED: cefTRIAXone 2 GM ADDV.VIAL ONE (06:41)
[2020-04-01 06:42] LABS: Hematocrit 37 % (42-52); Hemoglobin 12.7 g/dL (14.0-18.0); Mean Corpuscular HGB Conc 35 g/dL (31-36); Mean Corpuscular Hemoglobin 33 pg (27-31); Mean Corpuscular Volume 94 fL (80-94); Mean Platelet Volume 8.1 fL (7.4-10.4); Platelet Count 161 10^3/uL (150-450); Red Cell Distribution Width 15 % (10-15); White Blood Count 10.4 10^3/uL (3.5-10.8)
[2020-04-01 07:00] LABS: ALT 466 U/L (7-52); AST 211 U/L (13-39); Albumin 2.9 g/dL (3.2-5.2); Albumin/Globulin Ratio 0.9 (1-3); Alkaline Phosphatase 119 U/L (34-104); Anion Gap 9 mmol/L (2-11); BUN/Creatinine Ratio 34.4 (8-20); Blood Urea Nitrogen 42 mg/dL (6-24); C Reactive Protein 148.92 mg/L (<8.01); CO2 Carbon Dioxide 23 mmol/L (22-32); Calcium 8.7 mg/dL (8.6-10.3); Chloride 101 mmol/L (101-111); EGFR African American 70.1 (>60); EGFR Non-African American 57.9 (>60); Globulin 3.2 g/dL (2-4); Glucose 96 mg/dL (70-100); Potassium 4.3 mmol/L (3.5-5.0); Sodium 133 mmol/L (135-145); Total Protein 6.1 g/dL (6.4-8.9)
[2020-04-01 07:03] LABS: Troponin I 0.05 ng/mL (<0.03)
[2020-04-01 07:13] LABS: Activated Partial Thrombo Time 24.5 seconds (26.0-38.0); INR 1.27 (0.82-1.09)
[2020-04-01 07:14] LABS: Urine Appearance Clear; Urine Bilirubin Negative (Negative); Urine Blood 1+ (Negative); Urine Color Yellow; Urine Glucose Negative (Negative); Urine Ketones Negative (Negative); Urine Nitrite Negative (Negative); Urine Protein Negative (Negative); Urine Specific Gravity 1.016 (1.010-1.030); Urine Urobilinogen Negative (Negative)
[2020-04-01 07:18] LABS: Urine Bacteria Absent (Absent); Urine Red Blood Cell 2+(6-10/hpf) (Absent); Urine White Blood Cell 1+(6-10/hpf) (Absent)
[2020-04-01] MEDS ORDERED: Diltiazem IV push/loading dose 5 MG/ML 5 ML vial (25 mg) ONE (07:23)
[2020-04-01] MEDS ORDERED: Diltiazem IV BAG D5W Premix 125 MG/125 ML BAG IV SCH ×2 (08:00→11:00)
[2020-04-01 08:03] LABS: ABS Lymphocytes 0.4 10^3/ul (1.0-4.8); ABS Monocytes 0.3 10^3/ul (0-0.8); ABS Neutrophils 9.7 10^3/ul (1.5-7.7); Eosinophil % 0.1 %; Lymphocyte % 4.3 %
[2020-04-01] MEDS ORDERED: Metoprolol Tartrate 5 mg VIAL 5 ml VIAL (1 mg/ml) IV ONE (08:39)
[2020-04-01] MEDS ORDERED: Vancomycin 1,000 MG in NS 0.9% 250 ml 250 ML IVPB ONE (08:39)
[2020-04-01] MEDS ORDERED: Vancomycin 1,000 MG BAG/ADDV ONE (08:51)
[2020-04-01] MEDS ORDERED: Vancomycin per Pharmacy 1 EA NOTE FOLLOW UP SCH (09:00)
[2020-04-01] MEDS ORDERED: Digoxin IV 0.5 MG/2 ML AMP (0.25 MG/ML) IV SLOW PU ONE (10:09)
[2020-04-01] MEDS: Aspirin EC 81 mg TAB.EC (enteric coated) PO SCH (10:50)
[2020-04-01] MEDS: buPROPion SR 200 mg TAB.SR PO SCH ×2 (10:50→21:19)
[2020-04-01] MEDS: Nystatin SUSPENSION 100,000 UNITS/ML UDC PO SCH ×4 (10:50→21:19)
[2020-04-01] MEDS: Cefepime 1 GM in Dextrose 1 GM/50 ML BAG IV SCH (12:49)
[2020-04-01] MEDS: Vancomycin 750 MG in NS 0.9% 250 ml 250 ML IVPB SCH (21:12)
[2020-04-02] MEDS ORDERED: Digoxin IV 0.5 MG/2 ML AMP (0.25 MG/ML) IV SLOW PU ONE (00:06)
[2020-04-02] MEDS: Cefepime 1 GM in Dextrose 1 GM/50 ML BAG IV SCH (00:06)
[2020-04-02 04:45] LABS: Hematocrit 35 % (42-52); Hemoglobin 11.8 g/dL (14.0-18.0); Mean Corpuscular HGB Conc 34 g/dL (31-36); Mean Corpuscular Hemoglobin 32 pg (27-31); Mean Corpuscular Volume 95 fL (80-94); Mean Platelet Volume 7.7 fL (7.4-10.4); Platelet Count 140 10^3/uL (150-450); Red Blood Count 3.62 10^6 /uL (4.18-5.48); Red Cell Distribution Width 15 % (10-15); White Blood Count 11.7 10^3/uL (3.5-10.8)
[2020-04-02 05:01] LABS: Albumin 2.6 g/dL (3.2-5.2); BUN/Creatinine Ratio 41.4 (8-20); Calcium 7.8 mg/dL (8.6-10.3); EGFR African American 103.5 (>60); EGFR Non-African American 85.5 (>60); Globulin 2.6 g/dL (2-4); Magnesium 1.9 mg/dL (1.9-2.7); Phosphorus 4.3 mg/dL (2.5-5.0); Potassium 4.2 mmol/L (3.5-5.0); Total Bilirubin 0.5 mg/dL (0.2-1.0); Total Protein 5.2 g/dL (6.4-8.9)
[2020-04-02 05:54] LABS: ABS Lymphocytes 0.4 10^3/ul (1.0-4.8); ABS Monocytes 0.2 10^3/ul (0-0.8); Eosinophil % 0.1 %; Lymphocyte % 3.8 %
[2020-04-02] MEDS: Aspirin EC 81 mg TAB.EC (enteric coated) PO SCH (07:59)
[2020-04-02] MEDS: buPROPion SR 200 mg TAB.SR PO SCH ×2 (07:59→20:43)
[2020-04-02] MEDS: Nystatin SUSPENSION 100,000 UNITS/ML UDC PO SCH ×4 (07:59→20:43)
[2020-04-02] MEDS: Vancomycin 750 MG in NS 0.9% 250 ml 250 ML IVPB SCH (08:00)
[2020-04-02] MEDS ORDERED: ceFAZolin VIAL 2 GM in NS 0.9% 100 ml BAG 100 ML IVPB SCH (09:00)
[2020-04-02 09:45] LABS: Hepatitis B Surface Antigen Nonreactive (Nonreactive)
[2020-04-02 09:50] LABS: Hepatitis A Ab IgM Negative (Negative); Hepatitis B Core IgM Nonreactive (Nonreactive)
[2020-04-02 10:02] LABS: Hepatitis C Antibody Negative (Negative)
[2020-04-02] MEDS: ceFAZolin 2 GM PREMIX 2 GM/50 ML BAG IVPB SCH ×2 (10:12→16:43)
[2020-04-03] MEDS: ceFAZolin 2 GM PREMIX 2 GM/50 ML BAG IVPB SCH ×3 (01:07→17:28)
[2020-04-03 06:22] LABS: Hematocrit 37 % (42-52); Hemoglobin 12.5 g/dL (14.0-18.0); Mean Corpuscular HGB Conc 34 g/dL (31-36); Mean Corpuscular Hemoglobin 32 pg (27-31); Mean Corpuscular Volume 94 fL (80-94); Mean Platelet Volume 7.9 fL (7.4-10.4); Platelet Count 191 10^3/uL (150-450); Red Blood Count 3.93 10^6 /uL (4.18-5.48); Red Cell Distribution Width 15 % (10-15); White Blood Count 15.8 10^3/uL (3.5-10.8)
[2020-04-03 06:35] LABS: Albumin 2.7 g/dL (3.2-5.2); Albumin/Globulin Ratio 0.9 (1-3); BUN/Creatinine Ratio 43.5 (8-20); Calcium 8.7 mg/dL (8.6-10.3); EGFR African American 80.7 (>60); EGFR Non-African American 66.7 (>60); Globulin 3.1 g/dL (2-4); Magnesium 2.1 mg/dL (1.9-2.7); Potassium 4.3 mmol/L (3.5-5.0); Total Bilirubin 0.4 mg/dL (0.2-1.0); Total Protein 5.8 g/dL (6.4-8.9)
[2020-04-03 06:37] LABS: Digoxin 0.9 ng/ml (0.8-2.0)
[2020-04-03 07:17] LABS: ABS Basophils 0.1 10^3/ul (0-0.2); ABS Lymphocytes 0.3 10^3/ul (1.0-4.8); ABS Monocytes 0.5 10^3/ul (0-0.8); ABS Neutrophils 14.9 10^3/ul (1.5-7.7); Lymphocyte % 2.2 %
[2020-04-03] MEDS ORDERED: Vancomycin Trough Check NOTE FOLLOW UP ONE (08:30)
[2020-04-03] MEDS: buPROPion SR 200 mg TAB.SR PO SCH ×2 (09:02→21:14)
[2020-04-03] MEDS: Aspirin EC 81 mg TAB.EC (enteric coated) PO SCH (09:02)
[2020-04-03] MEDS: Nystatin SUSPENSION 100,000 UNITS/ML UDC PO SCH ×4 (09:03→21:14)
[2020-04-03 09:38] LABS: C Reactive Protein 100.13 mg/L (<8.01)
[2020-04-03] MEDS ORDERED: Magnesium Hydroxide LIQ 30 ML UDC PO PRN (09:38)
[2020-04-03] MEDS ORDERED: Polyethylene Glycol 3350 17 GM PACKET PO PRN (09:38)
[2020-04-03] MEDS ORDERED: Senna TAB 8.6 mg TAB PO PRN (09:38)
[2020-04-03] MEDS ORDERED: Naloxone 0.4 mg VIAL 0.4 mg/ml 1 ml VIAL ONE (14:26)
[2020-04-03] MEDS ORDERED: fentaNYL 100 mcg/2 ml 50 MCG/ML VIAL ONE ×2 (14:26→14:59)
[2020-04-03] MEDS ORDERED: Flumazenil 0.5 mg/5 ml 0.1 MG/ML 5 ml VIAL ONE (14:26)
[2020-04-03] MEDS ORDERED: Midazolam 5 mg/5 ml VIAL 1 mg/ml 5 ml VIAL (5 mg) ONE (14:26)
[2020-04-03] MEDS: Magnesium Hydroxide LIQ 30 ML UDC PO SCH (21:14)
[2020-04-04] MEDS: ceFAZolin 2 GM PREMIX 2 GM/50 ML BAG IVPB SCH ×3 (00:52→16:41)
[2020-04-04 06:45] LABS: Hematocrit 33 % (42-52); Hemoglobin 11.5 g/dL (14.0-18.0); Mean Corpuscular HGB Conc 35 g/dL (31-36); Mean Corpuscular Hemoglobin 33 pg (27-31); Mean Corpuscular Volume 95 fL (80-94); Platelet Count 188 10^3/uL (150-450); Red Blood Count 3.49 10^6 /uL (4.18-5.48); Red Cell Distribution Width 15 % (10-15); White Blood Count 12.3 10^3/uL (3.5-10.8)
[2020-04-04 07:00] LABS: Albumin 2.6 g/dL (3.2-5.2); BUN/Creatinine Ratio 50.9 (8-20); Calcium 8.2 mg/dL (8.6-10.3); EGFR African American 82.4 (>60); EGFR Non-African American 68.1 (>60); Globulin 2.6 g/dL (2-4); Magnesium 2.3 mg/dL (1.9-2.7); Potassium 4.4 mmol/L (3.5-5.0); Total Bilirubin 0.4 mg/dL (0.2-1.0); Total Protein 5.2 g/dL (6.4-8.9)
[2020-04-04 08:35] LABS: ABS Basophils 0.1 10^3/ul (0-0.2); ABS Lymphocytes 0.9 10^3/ul (1.0-4.8); ABS Monocytes 0.3 10^3/ul (0-0.8); ABS Neutrophils 11.1 10^3/ul (1.5-7.7); Eosinophil % 0.1 %; Lymphocyte % 7.4 %
[2020-04-04] MEDS: buPROPion SR 200 mg TAB.SR PO SCH ×2 (09:21→19:45)
[2020-04-04] MEDS: Aspirin EC 81 mg TAB.EC (enteric coated) PO SCH (09:21)
[2020-04-04] MEDS: Magnesium Hydroxide LIQ 30 ML UDC PO SCH ×2 (09:21→19:45)
[2020-04-04] MEDS: Nystatin SUSPENSION 100,000 UNITS/ML UDC PO SCH ×4 (09:21→19:45)
[2020-04-05] MEDS: ceFAZolin 2 GM PREMIX 2 GM/50 ML BAG IVPB SCH ×3 (00:56→17:19)
[2020-04-05 06:35] LABS: Hematocrit 32 % (42-52); Hemoglobin 11.1 g/dL (14.0-18.0); Mean Corpuscular HGB Conc 35 g/dL (31-36); Mean Corpuscular Hemoglobin 33 pg (27-31); Mean Corpuscular Volume 94 fL (80-94); Mean Platelet Volume 7.8 fL (7.4-10.4); Platelet Count 191 10^3/uL (150-450); Red Blood Count 3.38 10^6 /uL (4.18-5.48); Red Cell Distribution Width 15 % (10-15); White Blood Count 11.8 10^3/uL (3.5-10.8)
[2020-04-05 06:50] LABS: Albumin 2.5 g/dL (3.2-5.2); Albumin/Globulin Ratio 0.9 (1-3); BUN/Creatinine Ratio 49.5 (8-20); Calcium 8.3 mg/dL (8.6-10.3); EGFR African American 93.5 (>60); EGFR Non-African American 77.3 (>60); Globulin 2.8 g/dL (2-4); Magnesium 2.4 mg/dL (1.9-2.7); Potassium 4.7 mmol/L (3.5-5.0); Total Bilirubin 0.4 mg/dL (0.2-1.0); Total Protein 5.3 g/dL (6.4-8.9)
[2020-04-05] MEDS: buPROPion SR 200 mg TAB.SR PO SCH ×2 (08:07→20:44)
[2020-04-05] MEDS: Nystatin SUSPENSION 100,000 UNITS/ML UDC PO SCH ×4 (08:08→20:44)
[2020-04-05] MEDS: Aspirin EC 81 mg TAB.EC (enteric coated) PO SCH (08:08)
[2020-04-05] MEDS: Magnesium Hydroxide LIQ 30 ML UDC PO SCH ×2 (08:08→20:44)
[2020-04-05 09:48] LABS: ABS Lymphocytes 0.7 10^3/ul (1.0-4.8); ABS Monocytes 0.2 10^3/ul (0-0.8); ABS Neutrophils 10.8 10^3/ul (1.5-7.7); Eosinophil % 0.3 %; Lymphocyte % 6.2 %
[2020-04-05 09:53] LABS: C Reactive Protein 88.44 mg/L (<8.01)
[2020-04-06] MEDS: ceFAZolin 2 GM PREMIX 2 GM/50 ML BAG IVPB SCH ×2 (00:43→09:31)
[2020-04-06 06:56] LABS: Albumin 2.4 g/dL (3.2-5.2); Albumin/Globulin Ratio 0.9 (1-3); BUN/Creatinine Ratio 45.4 (8-20); Calcium 8.3 mg/dL (8.6-10.3); EGFR African American 91.3 (>60); EGFR Non-African American 75.5 (>60); Globulin 2.6 g/dL (2-4); Magnesium 2.2 mg/dL (1.9-2.7); Potassium 4.9 mmol/L (3.5-5.0); Total Bilirubin 0.3 mg/dL (0.2-1.0)
[2020-04-06 07:19] LABS: Hematocrit 31 % (42-52); Hemoglobin 10.7 g/dL (14.0-18.0); Mean Corpuscular HGB Conc 35 g/dL (31-36); Mean Corpuscular Hemoglobin 33 pg (27-31); Mean Corpuscular Volume 94 fL (80-94); Mean Platelet Volume 7.7 fL (7.4-10.4); Platelet Count 215 10^3/uL (150-450); Red Blood Count 3.27 10^6 /uL (4.18-5.48); Red Cell Distribution Width 15 % (10-15); White Blood Count 10.7 10^3/uL (3.5-10.8)
[2020-04-06 08:47] LABS: ABS Lymphocytes 0.8 10^3/ul (1.0-4.8); ABS Monocytes 0.2 10^3/ul (0-0.8); ABS Neutrophils 9.6 10^3/ul (1.5-7.7); Eosinophil % 0.3 %; Lymphocyte % 7.6 %
[2020-04-06] MEDS: Magnesium Hydroxide LIQ 30 ML UDC PO SCH ×2 (09:07→21:15)
[2020-04-06] MEDS: Aspirin EC 81 mg TAB.EC (enteric coated) PO SCH (09:07)
[2020-04-06] MEDS: Nystatin SUSPENSION 100,000 UNITS/ML UDC PO SCH ×4 (09:08→21:17)
[2020-04-06] MEDS: buPROPion SR 200 mg TAB.SR PO SCH ×2 (09:09→21:18)
[2020-04-06] MEDS ORDERED: Diltiazem IV push/loading dose 5 MG/ML 5 ML vial (25 mg) IV SLOW PU ONE (15:26)
[2020-04-06] MEDS ORDERED: Digoxin IV 0.5 MG/2 ML AMP (0.25 MG/ML) IV SLOW PU ONE (16:06)
[2020-04-06 16:22] LABS: Magnesium 2.3 mg/dL (1.9-2.7)
[2020-04-06 16:26] LABS: Troponin I 0.03 ng/mL (<0.03)
[2020-04-06] MEDS ORDERED: Diltiazem IV BAG D5W Premix 125 MG/125 ML BAG IV SCH (17:00)
[2020-04-06] MEDS: ceFAZolin VIAL 2 GM in NS 0.9% 100 ml BAG 100 ML IVPB SCH (17:23)
[2020-04-06 19:26] LABS: Troponin I 0.03 ng/mL (<0.03)
[2020-04-06] MEDS: Diltiazem IV BAG D5W Premix 125 MG/125 ML BAG IV SCH (21:46)
[2020-04-06 22:32] LABS: Troponin I 0.03 ng/mL (<0.03)
[2020-04-07] MEDS: ceFAZolin VIAL 2 GM in NS 0.9% 100 ml BAG 100 ML IVPB SCH ×3 (00:36→16:42)
[2020-04-07] MEDS: Nystatin SUSPENSION 100,000 UNITS/ML UDC PO SCH ×4 (09:27→20:54)
[2020-04-07] MEDS: Magnesium Hydroxide LIQ 30 ML UDC PO SCH ×2 (09:27→20:54)
[2020-04-07] MEDS: Aspirin EC 81 mg TAB.EC (enteric coated) PO SCH (09:27)
[2020-04-07] MEDS: buPROPion SR 200 mg TAB.SR PO SCH ×2 (09:28→20:53)
[2020-04-07 10:06] LABS: C Reactive Protein 85.67 mg/L (<8.01)
[2020-04-07] MEDS: Diltiazem IV BAG D5W Premix 125 MG/125 ML BAG IV SCH ×2 (10:35→17:02)
[2020-04-07 11:05] LABS: BUN/Creatinine Ratio 38.9 (8-20); Calcium 8.2 mg/dL (8.6-10.3); EGFR African American 93.5 (>60); EGFR Non-African American 77.3 (>60); Magnesium 2.1 mg/dL (1.9-2.7)
[2020-04-07] MEDS: Mupirocin 2% OINT TUBE TOPICAL SCH (17:16)
[2020-04-08] MEDS: ceFAZolin VIAL 2 GM in NS 0.9% 100 ml BAG 100 ML IVPB SCH ×2 (00:50→09:25)
[2020-04-08] MEDS: Diltiazem IV BAG D5W Premix 125 MG/125 ML BAG IV SCH (06:03)
[2020-04-08] MEDS: buPROPion SR 200 mg TAB.SR PO SCH ×2 (09:26→20:33)
[2020-04-08] MEDS: Aspirin EC 81 mg TAB.EC (enteric coated) PO SCH (09:26)
[2020-04-08] MEDS: Nystatin SUSPENSION 100,000 UNITS/ML UDC PO SCH (09:26)
[2020-04-08] MEDS: Mupirocin 2% OINT TUBE TOPICAL SCH (09:26)
[2020-04-08] MEDS: Magnesium Hydroxide LIQ 30 ML UDC PO SCH ×2 (09:32→20:32)
[2020-04-08] MEDS: ceFAZolin 2 GM PREMIX 2 GM/50 ML BAG IVPB SCH (17:05)
[2020-04-09] MEDS: ceFAZolin 2 GM PREMIX 2 GM/50 ML BAG IVPB SCH ×3 (00:52→16:47)
[2020-04-09] MEDS: buPROPion SR 200 mg TAB.SR PO SCH ×2 (09:25→21:51)
[2020-04-09] MEDS: Magnesium Hydroxide LIQ 30 ML UDC PO SCH ×2 (09:25→21:49)
[2020-04-09] MEDS: Aspirin EC 81 mg TAB.EC (enteric coated) PO SCH (09:26)
[2020-04-09] MEDS: Mupirocin 2% OINT TUBE TOPICAL SCH (10:25)
[2020-04-09] MEDS ORDERED: Gadoteridol (CONTRAST) 279.3 MG/ML 10 ML IV ONE (15:23)
[2020-04-10] MEDS: ceFAZolin 2 GM PREMIX 2 GM/50 ML BAG IVPB SCH ×2 (01:48→08:48)
[2020-04-10 04:06] LABS: BUN/Creatinine Ratio 33.3 (8-20); Calcium 8.3 mg/dL (8.6-10.3); EGFR African American 86.2 (>60); EGFR Non-African American 71.2 (>60); Potassium 4.6 mmol/L (3.5-5.0)
[2020-04-10] MEDS: buPROPion SR 200 mg TAB.SR PO SCH (08:53)
[2020-04-10] MEDS: Mupirocin 2% OINT TUBE TOPICAL SCH (08:53)
[2020-04-10] MEDS: Aspirin EC 81 mg TAB.EC (enteric coated) PO SCH (08:53)
[2020-04-10 15:38] VITALS: BP 124/69
== END 2020-04-10 16:40 | disposition swing bed (61) | DRG 871 ==
LOC: ED 05:52 → ICU 08:21 → MEDTELE 04-02 23:47
PROVIDERS: ADMIT Internal Medicine; ATTEND Internal Medicine

== ENCOUNTER 2020-04-10 16:43 | Inpatient (IN) ==
[2020-04-10] MEDS ORDERED: Polyethylene Glycol 3350 17 GM PACKET PO PRN (17:01)
[2020-04-10] MEDS: ceFAZolin 2 GM PREMIX 2 GM/50 ML BAG IVPB SCH (18:26)
[2020-04-10] MEDS: Mupirocin 2% OINT TUBE TOPICAL SCH (21:17)
[2020-04-10] MEDS: buPROPion SR 200 mg TAB.SR PO SCH (21:17)
[2020-04-11] MEDS: ceFAZolin 2 GM PREMIX 2 GM/50 ML BAG IVPB SCH ×3 (02:08→17:41)
[2020-04-11] MEDS: Mupirocin 2% OINT TUBE TOPICAL SCH ×2 (08:47→21:00)
[2020-04-11] MEDS: Aspirin EC 81 mg TAB.EC (enteric coated) PO SCH (08:48)
[2020-04-11] MEDS: buPROPion SR 200 mg TAB.SR PO SCH ×2 (08:49→21:00)
[2020-04-12] MEDS: ceFAZolin 2 GM PREMIX 2 GM/50 ML BAG IVPB SCH ×3 (01:57→17:26)
[2020-04-12] MEDS: Mupirocin 2% OINT TUBE TOPICAL SCH ×2 (08:47→20:37)
[2020-04-12] MEDS: buPROPion SR 200 mg TAB.SR PO SCH ×2 (08:59→20:36)
[2020-04-12] MEDS: Aspirin EC 81 mg TAB.EC (enteric coated) PO SCH (09:00)
[2020-04-13] MEDS: ceFAZolin 2 GM PREMIX 2 GM/50 ML BAG IVPB SCH ×3 (02:20→17:22)
[2020-04-13 05:54] LABS: ABS Lymphocytes 0.8 10^3/ul (1.0-4.8); ABS Monocytes 0.4 10^3/ul (0-0.8); ABS Neutrophils 15.7 10^3/ul (1.5-7.7); Eosinophil % 0.1 %; Hematocrit 28 % (42-52); Hemoglobin 9.2 g/dL (14.0-18.0); Lymphocyte % 4.9 %; Mean Corpuscular HGB Conc 33 g/dL (31-36); Mean Corpuscular Hemoglobin 31 pg (27-31); Mean Corpuscular Volume 95 fL (80-94); Mean Platelet Volume 6.7 fL (7.4-10.4); Platelet Count 290 10^3/uL (150-450); Red Blood Count 2.94 10^6 /uL (4.18-5.48); Red Cell Distribution Width 15 % (10-15)
[2020-04-13 06:13] LABS: Albumin 2.5 g/dL (3.2-5.2); Albumin/Globulin Ratio 0.8 (1-3); BUN/Creatinine Ratio 32.7 (8-20); C Reactive Protein 140.93 mg/L (<8.01); Calcium 7.9 mg/dL (8.6-10.3); EGFR African American 87.1 (>60); Globulin 3.1 g/dL (2-4); Potassium 4.5 mmol/L (3.5-5.0); Total Bilirubin 0.5 mg/dL (0.2-1.0); Total Protein 5.6 g/dL (6.4-8.9)
[2020-04-13] MEDS: Aspirin EC 81 mg TAB.EC (enteric coated) PO SCH (09:54)
[2020-04-13] MEDS: buPROPion SR 200 mg TAB.SR PO SCH ×2 (09:54→21:05)
[2020-04-13] MEDS: Mupirocin 2% OINT TUBE TOPICAL SCH ×2 (09:55→21:08)
[2020-04-13] MEDS ORDERED: Iohexol 300 (CONTRAST) 10 ML SDV IV ONE (10:52)
[2020-04-13 14:32] LABS: % Iron Saturation 13 % (15-55); Iron 27 ug/dL (50-212); Total Iron Binding Capacity 214 mcg/dL (250-450); Transferrin 153 mg/dL (203-362); Unsaturated Iron Binding < 199 ug/dL
[2020-04-13 14:51] LABS: Ferritin 1140.3 ng/mL (24-336)
[2020-04-13 14:56] LABS: Vitamin B12 819 pg/mL (180-914)
[2020-04-14] MEDS: ceFAZolin 2 GM PREMIX 2 GM/50 ML BAG IVPB SCH ×3 (01:58→17:38)
[2020-04-14 07:22] LABS: ABS Lymphocytes 1.1 10^3/ul (1.0-4.8); ABS Monocytes 0.5 10^3/ul (0-0.8); ABS Neutrophils 15.1 10^3/ul (1.5-7.7); Eosinophil % 0.1 %; Hematocrit 27 % (42-52); Hemoglobin 9.6 g/dL (14.0-18.0); Lymphocyte % 6.4 %; Mean Corpuscular HGB Conc 35 g/dL (31-36); Mean Corpuscular Hemoglobin 33 pg (27-31); Mean Corpuscular Volume 95 fL (80-94); Platelet Count 275 10^3/uL (150-450); Red Blood Count 2.89 10^6 /uL (4.18-5.48); Red Cell Distribution Width 15 % (10-15); White Blood Count 16.7 10^3/uL (3.5-10.8)
[2020-04-14] MEDS: buPROPion SR 200 mg TAB.SR PO SCH ×2 (10:04→20:52)
[2020-04-14] MEDS: Aspirin EC 81 mg TAB.EC (enteric coated) PO SCH (10:05)
[2020-04-14] MEDS: Mupirocin 2% OINT TUBE TOPICAL SCH ×2 (12:16→20:55)
[2020-04-14] MEDS: Morphine ER 15 mg TAB ** extended release PO SCH (20:52)
[2020-04-15] MEDS: ceFAZolin 2 GM PREMIX 2 GM/50 ML BAG IVPB SCH ×3 (01:52→18:04)
[2020-04-15] MEDS: buPROPion SR 200 mg TAB.SR PO SCH ×2 (09:39→21:26)
[2020-04-15] MEDS: Aspirin EC 81 mg TAB.EC (enteric coated) PO SCH (09:39)
[2020-04-15] MEDS: Morphine ER 15 mg TAB ** extended release PO SCH ×2 (09:39→21:27)
[2020-04-15] MEDS: Mupirocin 2% OINT TUBE TOPICAL SCH ×2 (09:49→21:28)
[2020-04-16] MEDS: ceFAZolin 2 GM PREMIX 2 GM/50 ML BAG IVPB SCH ×3 (01:44→17:02)
[2020-04-16] MEDS: Aspirin EC 81 mg TAB.EC (enteric coated) PO SCH (08:49)
[2020-04-16] MEDS: Morphine ER 15 mg TAB ** extended release PO SCH ×2 (08:50→22:13)
[2020-04-16] MEDS: buPROPion SR 200 mg TAB.SR PO SCH ×2 (09:20→22:13)
[2020-04-16] MEDS: Mupirocin 2% OINT TUBE TOPICAL SCH ×2 (14:58→22:13)
[2020-04-16 19:54] VITALS: BP 112/65
[2020-04-17] MEDS: ceFAZolin 2 GM PREMIX 2 GM/50 ML BAG IVPB SCH (01:37)
[2020-04-17] MEDS: Aspirin EC 81 mg TAB.EC (enteric coated) PO SCH (08:55)
[2020-04-17] MEDS: buPROPion SR 200 mg TAB.SR PO SCH (08:55)
[2020-04-17] MEDS: Morphine ER 15 mg TAB ** extended release PO SCH (08:57)
[2020-04-17] MEDS: Mupirocin 2% OINT TUBE TOPICAL SCH (09:19)
[2020-04-17] MEDS ORDERED: Nystatin SUSPENSION 100,000 UNITS/ML UDC PO SCH (13:00)
== END 2020-04-17 15:30 | DRG 603 ==
LOC: MEDTELE 16:43
PROVIDERS: ADMIT Internal Medicine; ATTEND Student in an Organized Health Care Education/Training Program

== ENCOUNTER 2020-04-24 09:02 | Inpatient (IN) ==
[2020-04-24] MEDS ORDERED: Pantoprazole VIAL 40 MG VIAL IV ONE (09:11)
[2020-04-24] MEDS ORDERED: Diltiazem IV push/loading dose 5 MG/ML 5 ML vial (25 mg) IV SLOW PU ONE ×2 (09:15→09:38)
[2020-04-24] MEDS ORDERED: NS 0.9% 1000 ml BAG 1,000 ML IV ONE ×2 (09:25→11:20)
[2020-04-24 09:58] LABS: ABS Basophils 0.1 10^3/ul (0-0.2); ABS Lymphocytes 2.3 10^3/ul (1.0-4.8); ABS Monocytes 0.5 10^3/ul (0-0.8); ABS Neutrophils 6.3 10^3/ul (1.5-7.7); ABS Nucleated RBC 0.1 10^3/ul; Eosinophil % 0.2 %; Hematocrit 32 % (42-52); Hemoglobin 10.8 g/dL (14.0-18.0); Lymphocyte % 25.3 %; Mean Corpuscular HGB Conc 33 g/dL (31-36); Mean Corpuscular Hemoglobin 32 pg (27-31); Mean Corpuscular Volume 96 fL (80-94); Mean Platelet Volume 7.7 fL (7.4-10.4); Nucleated Red Blood Cells % 0.8; Platelet Count 364 10^3/uL (150-450); Red Blood Count 3.37 10^6 /uL (4.18-5.48); Red Cell Distribution Width 17 % (10-15); White Blood Count 9.1 10^3/uL (3.5-10.8)
[2020-04-24 10:05] LABS: Albumin 2.9 g/dL (3.2-5.2); CO2 Carbon Dioxide 16 mmol/L (22-32); Calcium 8.2 mg/dL (8.6-10.3); Chloride 105 mmol/L (101-111); Sodium 134 mmol/L (135-145)
[2020-04-24 10:11] LABS: ALT 19 U/L (7-52); Albumin/Globulin Ratio 0.8 (1-3); Alkaline Phosphatase 174 U/L (34-104); BUN/Creatinine Ratio 36.3 (8-20); Blood Urea Nitrogen 70 mg/dL (6-24); EGFR African American 41.3 (>60); EGFR Non-African American 34.1 (>60); Globulin 3.7 g/dL (2-4); Glucose 78 mg/dL (70-100); Total Protein 6.6 g/dL (6.4-8.9)
[2020-04-24 10:26] LABS: Anion Gap 13 mmol/L (2-11)
[2020-04-24 10:41] LABS: Activated Partial Thrombo Time 28.3 seconds (26.0-38.0); INR 1.99 (0.82-1.09)
[2020-04-24 11:26] LABS: Potassium Redraw 3.9 mmol/L (3.5-5.0)
[2020-04-24] MEDS ORDERED: Morphine 2 MG/ML SYRINGE IV PRN (11:50)
[2020-04-24] MEDS ORDERED: Ondansetron 4 mg VIAL 2 MG/ML 2 ml VIAL IV PRN (11:50)
[2020-04-24] MEDS ORDERED: Diltiazem (ADVAN VIAL) 100 MG/100 ML ADDV.BAG IV SCH ×2 (12:00→13:00)
[2020-04-24] MEDS ORDERED: NS 0.9% 1000 ml BAG 1,000 ML IV SCH (12:00)
[2020-04-24] MEDS ORDERED: Lidocaine 1% MPF 5 ML VIAL INJ ONE (12:42)
[2020-04-24] MEDS ORDERED: Prothrombin Complex Conc. DOSE = Units Factor IX (nine) IV SLOW PU ONE (14:00)
[2020-04-24] MEDS ORDERED: DESMOPRESSIN ACETATE IVPB ONE (14:30)
[2020-04-24] MEDS ORDERED: NS 0.9% IVPB ONE (14:30)
[2020-04-24] MEDS ORDERED: Amiodarone 150 mg IVPREMIX 150 MG/100 ML BAG IV ONE (16:59)
[2020-04-24 17:17] LABS: Hematocrit 24 % (42-52); Hemoglobin 8.2 g/dL (14.0-18.0); Mean Corpuscular HGB Conc 34 g/dL (31-36); Mean Corpuscular Hemoglobin 33 pg (27-31); Mean Corpuscular Volume 97 fL (80-94); Mean Platelet Volume 7.2 fL (7.4-10.4); Platelet Count 285 10^3/uL (150-450); Red Blood Count 2.53 10^6 /uL (4.18-5.48); Red Cell Distribution Width 17 % (10-15)
[2020-04-24] MEDS: Amiodarone 360 MG IVPREMIX 360 MG/200 ML BAG IV ONE ×3 (17:33→21:30)
[2020-04-24 17:52] LABS: ABS Lymphocytes 1.7 10^3/ul (1.0-4.8); ABS Monocytes 0.4 10^3/ul (0-0.8); ABS Neutrophils 4.8 10^3/ul (1.5-7.7); ABS Nucleated RBC 0.1 10^3/ul; Eosinophil % 0.3 %; Lymphocyte % 24.3 %; Nucleated Red Blood Cells % 0.7
[2020-04-24 18:41] LABS: ALT 16 U/L (7-52); AST 26 U/L (13-39); Albumin 2.2 g/dL (3.2-5.2); Albumin/Globulin Ratio 0.8 (1-3); Alkaline Phosphatase 132 U/L (34-104); Anion Gap 10 mmol/L (2-11); Blood Urea Nitrogen 60 mg/dL (6-24); CO2 Carbon Dioxide 18 mmol/L (22-32); Chloride 108 mmol/L (101-111); EGFR African American 55.2 (>60); EGFR Non-African American 45.6 (>60); Globulin 2.8 g/dL (2-4); Glucose 84 mg/dL (70-100); Magnesium 1.6 mg/dL (1.9-2.7); Phosphorus 4.6 mg/dL (2.5-5.0); Potassium 3.2 mmol/L (3.5-5.0); Sodium 136 mmol/L (135-145)
[2020-04-24] MEDS ORDERED: Magnesium Sulf 4 GM/100 ML IV 4,000 MG/100 ML BAG IVPB ONE (18:47)
[2020-04-24 18:54] LABS: Troponin I 0.03 ng/mL (<0.03)
[2020-04-24] MEDS: KCL 20 MEQ/100 ML IVPREMIX 20 MEQ/100 ML BAG IV SCH ×3 (19:19→23:35)
[2020-04-24] MEDS: Pantoprazole 80 mg in NS BAG 80 MG/250 ML BAG IV SCH (19:19)
[2020-04-24] MEDS ORDERED: Amiodarone 360 MG IVPREMIX 360 MG/200 ML BAG IV ONE (21:23)
[2020-04-24] MEDS: Amiodarone 360 MG IVPREMIX 360 MG/200 ML BAG IV SCH (21:30)
[2020-04-24 22:11] LABS: Hematocrit 25 % (42-52); Hemoglobin 8.1 g/dL (14.0-18.0)
[2020-04-24] MEDS: buPROPion SR 200 mg TAB.SR PO SCH (23:35)
[2020-04-24] MEDS: Lactated Ringers 1000 ml BAG 1,000 ML IV SCH (23:50)
[2020-04-25] MEDS ORDERED: Digoxin IV 0.5 MG/2 ML AMP (0.25 MG/ML) IV SLOW PU ONE ×3 (02:06→23:30)
[2020-04-25] MEDS: Pantoprazole 80 mg in NS BAG 80 MG/250 ML BAG IV SCH ×2 (04:01→14:33)
[2020-04-25 04:05] LABS: Hematocrit 23 % (42-52); Hemoglobin 7.7 g/dL (14.0-18.0); Mean Corpuscular HGB Conc 33 g/dL (31-36); Mean Corpuscular Hemoglobin 32 pg (27-31); Mean Corpuscular Volume 96 fL (80-94); Platelet Count 283 10^3/uL (150-450); Red Blood Count 2.43 10^6 /uL (4.18-5.48); Red Cell Distribution Width 18 % (10-15); White Blood Count 5.9 10^3/uL (3.5-10.8)
[2020-04-25 04:21] LABS: Calcium 7.2 mg/dL (8.6-10.3); EGFR African American 65.1 (>60); EGFR Non-African American 53.8 (>60); Potassium 3.6 mmol/L (3.5-5.0)
[2020-04-25] MEDS ORDERED: Esmolol 10 MG/ML IVPREMIX 2,500 MG/250 ML BAG IV SCH (05:00)
[2020-04-25 05:21] LABS: Magnesium 2.4 mg/dL (1.9-2.7)
[2020-04-25] MEDS: KCL 20 MEQ/100 ML IVPREMIX 20 MEQ/100 ML BAG IV SCH ×2 (07:39→09:57)
[2020-04-25 07:40] LABS: ABS Lymphocytes 1.2 10^3/ul (1.0-4.8); ABS Monocytes 0.4 10^3/ul (0-0.8); ABS Neutrophils 4.3 10^3/ul (1.5-7.7); Eosinophil % 0.2 %; Lymphocyte % 20.4 %; Nucleated Red Blood Cells % 0.4
[2020-04-25] MEDS: Vitamin THERAPEUTIC TAB PO SCH ×2 (08:18→09:18)
[2020-04-25] MEDS: Chlorhexidine MOUTHWASH 0.12% 15 ML UDC TOPICAL SCH ×5 (08:18→20:54)
[2020-04-25] MEDS: Lactated Ringers 1000 ml BAG 1,000 ML IV SCH (09:57)
[2020-04-25] MEDS: Amiodarone 360 MG IVPREMIX 360 MG/200 ML BAG IV SCH (10:19)
[2020-04-25 10:45] LABS: Polychromasia 1+
[2020-04-25] MEDS: buPROPion SR 200 mg TAB.SR PO SCH ×2 (11:11→20:53)
[2020-04-25] MEDS ORDERED: Lactated Ringers 1000 ml BAG 1,000 ML IV SCH (13:43)
[2020-04-25 22:30] LABS: Hematocrit 24 % (42-52); Hemoglobin 7.8 g/dL (14.0-18.0)
[2020-04-26] MEDS: Chlorhexidine MOUTHWASH 0.12% 15 ML UDC TOPICAL SCH ×6 (00:59→21:24)
[2020-04-26] MEDS: Pantoprazole 80 mg in NS BAG 80 MG/250 ML BAG IV SCH (01:00)
[2020-04-26 05:38] LABS: Hematocrit 25 % (42-52); Hemoglobin 8.1 g/dL (14.0-18.0); Mean Corpuscular HGB Conc 33 g/dL (31-36); Mean Corpuscular Hemoglobin 31 pg (27-31); Mean Corpuscular Volume 96 fL (80-94); Mean Platelet Volume 6.7 fL (7.4-10.4); Platelet Count 272 10^3/uL (150-450); Red Cell Distribution Width 18 % (10-15); White Blood Count 6.1 10^3/uL (3.5-10.8)
[2020-04-26 06:05] LABS: EGFR African American 91.3 (>60); EGFR Non-African American 75.5 (>60); Magnesium 1.8 mg/dL (1.9-2.7); Potassium 3.6 mmol/L (3.5-5.0)
[2020-04-26] MEDS ORDERED: Magnesium Sulfate 2 gm BAG 2 GM/50 ML BAG IVPB ONE (08:05)
[2020-04-26] MEDS: buPROPion SR 200 mg TAB.SR PO SCH ×2 (08:30→21:08)
[2020-04-26] MEDS: Vitamin THERAPEUTIC TAB PO SCH (08:39)
[2020-04-26] MEDS: Pantoprazole VIAL 40 MG VIAL IV SCH ×2 (08:39→21:09)
[2020-04-26] MEDS ORDERED: Amiodarone 400 mg TAB PO SCH (09:00)
[2020-04-26] MEDS ORDERED: Digoxin IV 0.5 MG/2 ML AMP (0.25 MG/ML) IV SLOW PU SCH (09:00)
[2020-04-26] MEDS ORDERED: KCL 20 MEQ/100 ML IVPREMIX 20 MEQ/100 ML BAG IV ONE (09:05)
[2020-04-27] MEDS: Chlorhexidine MOUTHWASH 0.12% 15 ML UDC TOPICAL SCH ×4 (01:55→11:57)
[2020-04-27] MEDS: buPROPion SR 200 mg TAB.SR PO SCH ×2 (08:15→20:41)
[2020-04-27 08:16] LABS: Hematocrit 28 % (42-52); Hemoglobin 8.9 g/dL (14.0-18.0); Mean Corpuscular HGB Conc 32 g/dL (31-36); Mean Corpuscular Hemoglobin 31 pg (27-31); Mean Corpuscular Volume 96 fL (80-94); Platelet Count 288 10^3/uL (150-450); Red Blood Count 2.91 10^6 /uL (4.18-5.48); Red Cell Distribution Width 18 % (10-15); White Blood Count 7.4 10^3/uL (3.5-10.8)
[2020-04-27] MEDS: Vitamin THERAPEUTIC TAB PO SCH (08:16)
[2020-04-27] MEDS: Pantoprazole VIAL 40 MG VIAL IV SCH ×2 (08:17→20:41)
[2020-04-27 08:40] LABS: BUN/Creatinine Ratio 31.5 (8-20); Calcium 7.1 mg/dL (8.6-10.3); EGFR African American 100.8 (>60); EGFR Non-African American 83.3 (>60); Magnesium 1.9 mg/dL (1.9-2.7)
[2020-04-27 09:45] LABS: Potassium 3.7 mmol/L (3.5-5.0)
[2020-04-28] MEDS: Pantoprazole VIAL 40 MG VIAL IV SCH ×2 (09:54→19:48)
[2020-04-28] MEDS: buPROPion SR 200 mg TAB.SR PO SCH ×2 (09:54→19:47)
[2020-04-28] MEDS: Vitamin THERAPEUTIC TAB PO SCH (09:55)
[2020-04-28] MEDS ORDERED: Morphine 2 MG/ML SYRINGE ONE (17:52)
[2020-04-28] MEDS: Morphine ER 15 mg TAB ** extended release PO SCH (19:47)
[2020-04-28] MEDS: Morphine 2 MG/ML SYRINGE IV PRN (22:48)
[2020-04-29 07:17] LABS: Hematocrit 27 % (42-52); Hemoglobin 9.1 g/dL (14.0-18.0); Mean Corpuscular HGB Conc 33 g/dL (31-36); Mean Corpuscular Hemoglobin 31 pg (27-31); Mean Corpuscular Volume 95 fL (80-94); Mean Platelet Volume 7.2 fL (7.4-10.4); Platelet Count 246 10^3/uL (150-450); Red Blood Count 2.89 10^6 /uL (4.18-5.48); Red Cell Distribution Width 17 % (10-15); White Blood Count 8.7 10^3/uL (3.5-10.8)
[2020-04-29] MEDS: Morphine ER 15 mg TAB ** extended release PO SCH ×2 (07:30→19:12)
[2020-04-29 07:33] LABS: BUN/Creatinine Ratio 29.1 (8-20); Calcium 7.4 mg/dL (8.6-10.3); EGFR Non-African American 65.3 (>60); Magnesium 1.7 mg/dL (1.9-2.7); Potassium 3.3 mmol/L (3.5-5.0)
[2020-04-29 08:16] LABS: ABS Eosinophils 0.1 10^3/ul (0-0.6); ABS Lymphocytes 3.4 10^3/ul (1.0-4.8); ABS Monocytes 0.8 10^3/ul (0-0.8); ABS Neutrophils 4.5 10^3/ul (1.5-7.7); Eosinophil % 0.6 %; Nucleated Red Blood Cells % 0.2
[2020-04-29] MEDS ORDERED: Magnesium Sulfate 2 gm BAG 2 GM/50 ML BAG IVPB ONE (08:45)
[2020-04-29] MEDS: Vitamin THERAPEUTIC TAB PO SCH (09:29)
[2020-04-29] MEDS: buPROPion SR 200 mg TAB.SR PO SCH ×2 (09:32→20:07)
[2020-04-29] MEDS: Pantoprazole VIAL 40 MG VIAL IV SCH ×2 (09:33→20:07)
[2020-04-29] MEDS: KCL 20 MEQ/100 ML IVPREMIX 20 MEQ/100 ML BAG IV SCH ×2 (09:34→12:30)
[2020-04-29] MEDS: Morphine 2 MG/ML SYRINGE IV PRN (12:11)
[2020-04-29] MEDS: methylPREDNISolone SOD 40 mg/ml 1 ml VIAL IV SCH (13:15)
[2020-04-29] MEDS ORDERED: Iohexol 300 (CONTRAST) 10 ML SDV IV SCH (14:02)
[2020-04-30] MEDS: methylPREDNISolone SOD 40 mg/ml 1 ml VIAL IV SCH ×2 (01:00→13:17)
[2020-04-30] MEDS: Morphine ER 15 mg TAB ** extended release PO SCH ×2 (07:03→18:55)
[2020-04-30] MEDS: Pantoprazole VIAL 40 MG VIAL IV SCH ×2 (09:16→21:16)
[2020-04-30] MEDS: Vitamin THERAPEUTIC TAB PO SCH (09:17)
[2020-04-30] MEDS: buPROPion SR 200 mg TAB.SR PO SCH ×2 (09:17→21:16)
[2020-04-30 10:17] LABS: ABS Basophils 0.1 10^3/ul (0-0.2); ABS Lymphocytes 2.5 10^3/ul (1.0-4.8); ABS Monocytes 0.6 10^3/ul (0-0.8); ABS Neutrophils 5.4 10^3/ul (1.5-7.7); Hematocrit 29 % (42-52); Hemoglobin 9.5 g/dL (14.0-18.0); Lymphocyte % 28.7 %; Mean Corpuscular HGB Conc 32 g/dL (31-36); Mean Corpuscular Hemoglobin 30 pg (27-31); Mean Corpuscular Volume 94 fL (80-94); Mean Platelet Volume 7.1 fL (7.4-10.4); Nucleated Red Blood Cells % 0.1; Platelet Count 264 10^3/uL (150-450); Red Blood Count 3.12 10^6 /uL (4.18-5.48); Red Cell Distribution Width 18 % (10-15); White Blood Count 8.5 10^3/uL (3.5-10.8)
[2020-04-30 10:37] LABS: Albumin 2.3 g/dL (3.2-5.2); Albumin/Globulin Ratio 0.8 (1-3); BUN/Creatinine Ratio 30.7 (8-20); Calcium 7.5 mg/dL (8.6-10.3); EGFR African American 75.8 (>60); EGFR Non-African American 62.6 (>60); Potassium 4.6 mmol/L (3.5-5.0); Total Bilirubin 0.4 mg/dL (0.2-1.0); Total Protein 5.3 g/dL (6.4-8.9)
[2020-05-01] MEDS: methylPREDNISolone SOD 40 mg/ml 1 ml VIAL IV SCH ×2 (00:58→12:59)
[2020-05-01 05:55] LABS: ABS Basophils 0.1 10^3/ul (0-0.2); ABS Lymphocytes 1.7 10^3/ul (1.0-4.8); ABS Monocytes 0.6 10^3/ul (0-0.8); ABS Neutrophils 5.5 10^3/ul (1.5-7.7); Hematocrit 27 % (42-52); Hemoglobin 8.9 g/dL (14.0-18.0); Mean Corpuscular HGB Conc 32 g/dL (31-36); Mean Corpuscular Hemoglobin 31 pg (27-31); Mean Corpuscular Volume 94 fL (80-94); Mean Platelet Volume 6.4 fL (7.4-10.4); Nucleated Red Blood Cells % 0.1; Platelet Count 250 10^3/uL (150-450); Red Blood Count 2.92 10^6 /uL (4.18-5.48); Red Cell Distribution Width 18 % (10-15); White Blood Count 7.9 10^3/uL (3.5-10.8)
[2020-05-01 06:13] LABS: Albumin 2.2 g/dL (3.2-5.2); Albumin/Globulin Ratio 0.8 (1-3); BUN/Creatinine Ratio 32.5 (8-20); Calcium 7.3 mg/dL (8.6-10.3); EGFR African American 67.5 (>60); EGFR Non-African American 55.8 (>60); Globulin 2.8 g/dL (2-4); Potassium 4.9 mmol/L (3.5-5.0); Total Bilirubin 0.4 mg/dL (0.2-1.0)
[2020-05-01] MEDS: Morphine ER 15 mg TAB ** extended release PO SCH (06:58)
[2020-05-01] MEDS: Pantoprazole VIAL 40 MG VIAL IV SCH (08:27)
[2020-05-01] MEDS: buPROPion SR 200 mg TAB.SR PO SCH (08:28)
[2020-05-01] MEDS: Vitamin THERAPEUTIC TAB PO SCH (08:28)
[2020-05-01 12:25] VITALS: BP 106/58
== END 2020-05-01 16:10 | DRG 378 ==
LOC: ED 09:02 → ICU 14:04 → MEDTELE 04-26 16:07
PROVIDERS: ADMIT Internal Medicine; ATTEND Internal Medicine